=== PATIENT | female | born 1960 | race Two or more races ===

== ENCOUNTER → 2020-01-10 13:53 | Outpatient (BNVA) | payer OTHER, SELFPAY | PROVIDERS: PCP Internal Medicine; Visit Provider Hospitalist | DX: Z76.89 Persons encountering health services in other specified circumstances (principal) ==

== ENCOUNTER → 2020-04-13 13:50 | Outpatient (BNVA) | payer OTHER, SELFPAY | PROVIDERS: PCP Internal Medicine; Visit Provider Hospitalist | DX: Z76.89 Persons encountering health services in other specified circumstances (principal) ==

== ENCOUNTER 2020-06-01 10:00 | Outpatient (REF) | payer OTHER, SELFPAY ==
--- NOTE | ~2020-06-01 | CT_ITS ---
EXAMINATION: CT CHEST WITHOUT CONTRAST CLINICAL INFORMATION: Other nonspecific abnormal findings of lung field COMPARISON: Previous chest x-ray October 2019 TECHNIQUE: Multidetector volumetric CT imaging of the chest was done. Axial MIP volume rendering provided. Sagittal and coronal reformatted images were obtained. This CT examination was performed using dose optimization techniques as appropriate, variously including the following: *Automated exposure control *Adjustment of mA and/or kV according to patient size (this includes techniques or standardized protocols for targeted exams where dose is matched to indication/reason for exam; i.e. extremities or head) *Use of iterative reconstruction technique DLP: 139 mGy-cm FINDINGS: LUNGS: There is evidence of emphysema. There is a 4 x 10 mm right upper lobe nodule axial image 100 series 7. There is an adjacent 4 mm semisolid or groundglass attenuation nodule axial image 110 series 7. There is focal pleural thickening versus peripheral or subpleural lateral right upper lobe measuring 0.5 x 1.7 cm axial image 158 series 7. There is a new irregularly-shaped peripheral or subpleural 1.4 x 1.6 cm nodule in the medial superior segment of the right lower lobe axial image 220 series 7. There is a 4 mm left lower lobe nodule axial image 329 series 7. There is a 2.9 x 3.6 cm left lower lobe nodule axial image 3:30 series 7. There is a 5 mm peripheral or subpleural right lower lobe nodule along the lateral diaphragmatic pleural surface axial image 380 evident series 7. There is a 4 mm right lower lobe nodule axial image 4 3 series 7. There is a 4 mm peripheral or subpleural left lower lobe nodule in the posterior costophrenic sulcus axial image 447 series 7. There is curvilinear high attenuation seen along the medial left lower lobe and lateral margin of the descending thoracic aorta. Appearance appears atypical for vascular calcification. Appearance is questionable for possible postsurgical change with surgical staple line versus irregular pleural calcification or small calcified lymph nodes. MEDIASTINUM: There is mild coronary artery calcification. The heart does not appear enlarged. There is a small pericardial effusion. The thoracic aorta is normal in caliber. There are small mediastinal lymph nodes. No enlarged lymph nodes are seen. PLEURA: There is a slightly irregular pleural thickening along the posterior medial left lower lobe. There is no pleural effusion. AXILLA: No lymphadenopathy. UPPER ABDOMEN: There are small bilateral intrarenal calcifications. There is question of a cortical thickening or mass in the lateral mid left kidney. OSSEOUS STRUCTURES: There are mild degenerative changes of the spine. CT/CT chest wo con IMPRESSION: Emphysema. Bilateral pulmonary nodules, largest in the left lower lobe measuring 2.9 x 3.6 cm. Left pleural thickening. Infectious, inflammatory and neoplastic processes should be considered. Question postsurgical change to the left lower lobe. Mild coronary artery calcification. Question left renal cortical thickening versus mass.
== END 2020-06-01 10:01 | disposition home or self-care (01) ==
LOC: HO.CT 10:00
PROVIDERS: PCP Internal Medicine; Visit Provider Hospitalist
DX: R91.8 Other nonspecific abnormal finding of lung field (principal)
CPT/HCPCS: 71250

== ENCOUNTER → 2020-06-03 09:45 | Outpatient (BNVA) | payer OTHER, SELFPAY | PROVIDERS: PCP Internal Medicine; Visit Provider Hospitalist ==

== ENCOUNTER → 2020-07-17 14:11 | Outpatient (BNVA) | payer OTHER, SELFPAY | PROVIDERS: Visit Provider Hospitalist | DX: J44.9 Chronic obstructive pulmonary disease, unspecified (principal) ==

== ENCOUNTER → 2020-08-28 13:59 | Outpatient (BNVA) | payer OTHER, SELFPAY | PROVIDERS: PCP Internal Medicine; Visit Provider Hospitalist ==

== ENCOUNTER 2020-09-24 12:53 | Outpatient (REF) | payer OTHER, SELFPAY ==
[2020-09-24 14:29] LABS: MANUAL DIFF FLAG NO
[2020-09-24 14:32] LABS: Basophils Percent Auto 0.6 % (0-2); Eosinophils Absolute Auto 0.1 X10*3/uL (0.0-0.4); Eosinophils Percent Auto 1.3 % (0-4); Hematocrit 33.7 % (37-47); Hemoglobin 11.1 g/dl (12.0-16.0); Imm Gran Abs Auto 0.02 X10*3/uL (0.00-0.03); Imm Gran Pct Auto 0.3 % (0.0-0.4); Lymphocytes Absolute Auto 2.2 X10*3/uL (1.2-4.9); Lymphocytes Percent Auto 32.8 % (20-40); Mean Corpuscular HGB Conc 32.9 g/dl (31.0-35.0); Mean Corpuscular Hemoglobin 26.7 pg (27.0-33.0); Mean Platelet Volume 10.9 fL (9.4-12.3); Monocytes Absolute Auto 0.6 X10*3/uL (0.1-1.2); Monocytes Percent Auto 8.6 % (2-11); Neutrophils Absolute Auto 3.8 X10*3/uL (2.0-8.3); Neutrophils Percent Auto 56.4 % (45-73); Platelet Count 275 X10*3/uL (160-400); Red Blood Count 4.16 X10*6/uL (4.20-5.50); Red Cell Distribution Width 14.8 % (11.0-16.0); White Blood Count 6.7 X10*3/uL (4.8-10.8)
[2020-09-24 14:54] LABS: Alanine Aminotransferase 15 U/L (0-31); Albumin Level 4.1 g/dL (3.5-5.0); Alkaline Phosphatase 71 U/L (39-117); Anion Gap 15 (12-20); Aspartate Amino Transferase 15 U/L (5-31); Bilirubin Direct < 0.2 mg/dL (0.0-0.5); Bilirubin Total 0.4 mg/dL (0.0-1.0); Blood Urea Nitrogen 16 mg/dL (9-16); Calcium 9.6 mg/dL (8.4-10.2); Carbon Dioxide 27 mmol/L (22-29); Chloride 106 mmol/L (96-108); Estimated Glomerular Filt Rate > 60; Glucose Random 105 mg/dL (60-115); Sodium 144 mmol/L (135-145); Total Protein 6.8 g/dL (6.5-8.0)
[2020-09-24 15:16] LABS: Erythrocyte Sedimentation Rate 25 MM/HR (0-20)
--- NOTE | 2020-09-24 17:02 | PFT_ITS ---
INDICATION: Organizing pneumonia. SPIROMETRY: The FEV1 to FVC was 73% with an FEV1 of 2.20 L, which is 91% predicted with an FVC of 3 L, which is 98% predicted. No significant response to bronchodilators noted. Of note, the pre-bronchodilator FEV1 to FVC was 69% predicted suggesting a reversible obstruction. Maximum voluntary ventilation 111% predicted. LUNG VOLUMES: Total lung capacity 90% predicted with expiratory reserve volume of 137% predicted. DIFFUSION CAPACITY: DLCO 60% predicted. COMPARISONS: None available. INTERPRETATION: There appears to be a reversible obstructive ventilatory defect consistent with a diagnosis of asthma or hyperreactive airways. The patient has evidence of small airways disease which could be also appreciated with asthma. Normal maximum voluntary ventilation. In addition to that, lung volumes are within normal limits and the patient does have a mild diffusion impairment. Clinical correlation warranted. MD AQUILINO Pagan/MODElliott / [phone]
[2020-09-26 14:07] LABS: Anti DNA DS Antibody 4 IU/mL; Myeloperoxidase Antibody <1.0 AI; Proteinase 3 PR3 Antibodies <1.0 AI; Scleroderma 70 Antibody <1.0 NEG AI (<1.0 NEG)
[2020-09-28 14:42] LABS: Anti Nuclear Antibody Screen POSITIVE (NEGATIVE)
[2020-09-29 23:26] LABS: Angiotensin Converting Enzyme 27 U/L (9-67)
[2020-09-30 13:11] LABS: Asperg fumigatus Precip Abs NEGATIVE (NEGATIVE); Micropoly faeni Abs NEGATIVE (NEGATIVE); Pigeon serum Abs NEGATIVE (NEGATIVE); Saccharo pora viridis Abs NEGATIVE (NEGATIVE); Thermo candidus Abs NEGATIVE (NEGATIVE); Thermoa vulgaris #1 NEGATIVE (NEGATIVE)
== END 2020-09-24 12:54 | disposition home or self-care (01) ==
LOC: HO.RESP 12:53
PROVIDERS: PCP Internal Medicine; Visit Provider Hospitalist
DX: J67.9 Hypersensitivity pneumonitis due to unspecified organic dust (principal); J84.116 Cryptogenic organizing pneumonia; R91.8 Other nonspecific abnormal finding of lung field
CPT/HCPCS: 36415; 80048; 80076; 82164; 85025; 85652; 86021; 86038; 86039; 86225; 86235; 86331; 86606; 86609; 94060; 94727; 94729

== ENCOUNTER → 2020-10-02 13:29 | Outpatient (BNVA) | payer OTHER, SELFPAY | PROVIDERS: PCP Internal Medicine; Visit Provider Hospitalist | DX: R91.8 Other nonspecific abnormal finding of lung field (principal); J84.116 Cryptogenic organizing pneumonia ==

== ENCOUNTER → 2021-01-11 11:11 | Outpatient (BNVA) | payer OTHER, SELFPAY | PROVIDERS: PCP Internal Medicine; Visit Provider Hospitalist ==

== ENCOUNTER 2021-04-26 09:44 | Outpatient (REF) | payer OTHER, SELFPAY ==
--- NOTE | ~2021-04-26 | XR_ITS ---
EXAMINATION: XR CHEST CLINICAL INFORMATION: Nonspecific abnormal finding of lung field COMPARISON: Previous chest x-ray October [address] May 2020 TECHNIQUE: 2 views of the chest were obtained. FINDINGS: The cardiac and mediastinal contours are stable. There is volume loss to the left hemithorax with shift of the central mediastinal structures to the left. There is question of left lower lung nodule. This measures 1.3 x 3 cm on the PA view in between the left posterior ninth and 10th ribs and 1.9 cm in AP dimension projecting over the superior posterior T11 vertebral body. There is question of 2 small peripheral 5 mm right upper lobe nodule seen on the PA view in between the right first and second anterior ribs and overlying the right posterior fourth rib. There is no pleural effusion or pneumothorax. Bony structures are unremarkable. XR/XR chest 2V IMPRESSION: Volume loss to the left hemithorax. Question decrease in size and left lower lung nodule and stable appearance to the small peripheral right upper lobe nodules. Findings could be better evaluated by CT if clinically indicated.
== END 2021-04-26 09:45 | disposition home or self-care (01) ==
LOC: HO.XRAY 09:44
PROVIDERS: PCP Internal Medicine; Visit Provider Hospitalist
DX: R91.8 Other nonspecific abnormal finding of lung field (principal); J84.116 Cryptogenic organizing pneumonia; J84.9 Interstitial pulmonary disease, unspecified; G89.12 Acute post-thoracotomy pain; J45.40 Moderate persistent asthma, uncomplicated; Z23 Encounter for immunization
CPT/HCPCS: 71046; 90471; 90732

== ENCOUNTER → 2021-08-02 10:48 | Outpatient (BNVA) | payer OTHER, SELFPAY | PROVIDERS: PCP Internal Medicine; Visit Provider Hospitalist | DX: Z13.89 Encounter for screening for other disorder (principal) ==

== ENCOUNTER → 2021-09-14 14:51 | Outpatient (BNVA) | payer OTHER, SELFPAY | PROVIDERS: PCP Internal Medicine; Visit Provider Hospitalist | DX: J84.116 Cryptogenic organizing pneumonia (principal) ==

== ENCOUNTER 2021-11-19 10:22 | Outpatient (REF) | payer OTHER, SELFPAY | END 2021-11-19 10:23 | disposition home or self-care (01) | LOC: HO.XRAY 10:22 | PROVIDERS: Visit Provider Hospitalist | DX: Z13.89 Encounter for screening for other disorder (principal) ==

== ENCOUNTER 2022-01-24 09:42 | Outpatient (REF) | payer OTHER, SELFPAY ==
--- NOTE | ~2022-01-24 | XR_ITS ---
EXAMINATION: XR CHEST CLINICAL INFORMATION: Abnormal finding in lung field. COMPARISON: Multiple prior imaging examinations including chest x-ray April [address] May 2020. TECHNIQUE: 2 views of the chest were obtained. FINDINGS: There is volume loss of the left lung unchanged compared to prior likely postsurgical. There is linear opacity at the left base compatible with scarring or discoid atelectasis. There is also a concomitant question nodular opacity in the same area projecting over the vertebral body in the lateral projection, similar to prior. The previously reported nodular opacities in the right lung are not conspicuous. Cardiomediastinal silhouette otherwise normal. Bone and soft tissues unremarkable. XR/XR chest 2V IMPRESSION: Stable appearance of the left lower lobe with linear findings compatible with scarring and question of a nodular opacity unchanged. I suspect this may all reflect postsurgical change and more likely benign given its stability of findings. Consider follow-up imaging with CT as felt clinically necessary.
== END 2022-01-24 09:43 | disposition home or self-care (01) ==
LOC: HO.XRAY 09:42
PROVIDERS: Visit Provider Hospitalist
DX: R91.8 Other nonspecific abnormal finding of lung field (principal); J84.9 Interstitial pulmonary disease, unspecified
CPT/HCPCS: 71046

== ENCOUNTER → 2022-03-07 10:07 | Outpatient (BNVA) | payer OTHER, SELFPAY | PROVIDERS: PCP Internal Medicine; Visit Provider Hospitalist | DX: Z23 Encounter for immunization (principal); J67.9 Hypersensitivity pneumonitis due to unspecified organic dust; J84.116 Cryptogenic organizing pneumonia; J84.9 Interstitial pulmonary disease, unspecified; J45.40 Moderate persistent asthma, uncomplicated; R91.8 Other nonspecific abnormal finding of lung field | CPT/HCPCS: 90471; 90686 ==

== ENCOUNTER → 2022-05-13 09:55 | Outpatient (BNVA) | payer OTHER, SELFPAY | PROVIDERS: PCP Internal Medicine; Visit Provider Hospitalist | DX: J67.9 Hypersensitivity pneumonitis due to unspecified organic dust (principal) ==

== ENCOUNTER 2022-08-12 09:53 | Outpatient (REF) | payer OTHER, SELFPAY | END 2022-08-12 09:54 | disposition home or self-care (01) | LOC: HO.XRAY 09:53 | PROVIDERS: Visit Provider Hospitalist | DX: Z13.89 Encounter for screening for other disorder (principal) ==

== ENCOUNTER 2022-12-09 10:57 | Outpatient (AMB) | payer OTHER, SELFPAY ==
--- NOTE | 2022-12-09 10:59 | A.OFFVIS_ITS ---
Intake Vital Signs 12/09/22 11:00 Height 5 ft 4 in Weight 174 lb 2.643 oz BMI 29.9 BP 127/67 Blood Pressure Location Lt brachial Position Sitting Pulse 70 Pulse Source Doppler Pulse Oximetry (%) 100 Oxygen Delivery Method Room Air Intake Visit Reasons: pulm nodule Allergies glipizide Allergy (Severe, Verified 12/09/22 11:07) Rash/Hives metronidazole [From Flagyl] Allergy (Severe, Verified 12/09/22 11:07) Rash/Hives Penicillins Allergy (Severe, Verified 12/09/22 11:07) Rash/Hives sitagliptin [From Januvia] Allergy (Severe, Verified 12/09/22 11:07) Rash/Hives Sulfa (Sulfonamide Antibiotics) Allergy (Severe, Verified 12/09/22 11:07) Rash/Hives HPI HPI Comments History of Present Illness Details the patient is a 62-year-old woman with a known history of pulmonary nodules. Patient has undergone to surgical biopsies initially the superior segment of the left lower lobe segmentectomy and subsequently a left lower lobe lobectomy after a concerning nodule. both nodules demonstrated a pathology consistent with organizing pneumonia and non-necrotizing granulomas which is typical of hypersensitivity pneumonitis. the patient did undergo blood work ruling out connective tissue conditions an inflammatory conditions. Unfortunately, her hypersensitivity panel was not done as ordered. Patient has been complaining of chest discomfort. Her left sided pleural effusion did clear and her last chest x-ray. Still has chest pains which is likely due to neuropathy at the area on her surgery. Denies any radiations, [facility]. She has tried [id number]-gif-[id number] medications without any significant improvement. Will try Lidoderm patch to the area in the meantime. The patient is also using gabapentin. Initially she was scheduled to take it 3 times a day, but, then recommended that she takes it once a day. The patient then had a PET scan and also she made an appointment to be evaluated at [facility]. Recently she had an evaluation. Today reviewed the reports of the previous pathologies demonstrating the non-necrotizing granulomas in the organizing pneumonia. The patient will be getting the actual pathology to [place] in order for them to be able to visualize the slides and make the year own conclusion on the biopsy. The did bring up the question of non tuberculosis mycobacterial infections. In the meantime the patient did not tolerate the CellCept because of adverse effects. She did tolerate the prednisone that was given to her afterwards and that did relieve some of the discomfort. The patient did have the recent biopsy on the left mass. She was given Percocet for pain. The pain is significant. Unfortunately the Percocet is make her feel nauseous and she cannot tolerate them. She will talk to her primary care doctor on Monday regarding using oxycodone by itself that she seems to tolerate well. I will provide her with several tablets of the oxycodone to tie her over the weekend or for her to be able to function after the biopsy. The patient understands that i f the chest pain gets worse or if her breathing gets worse she needs to go back to the ER to be evaluated for pneumothorax or other issues. 08/28/2020 the patient is here for pulmonary follow-up visit. Since we last spoke she did undergo a CT-guided biopsy of the left lower lobe mass. Again demonstrating granulomas and organizing pneumonia. She was evaluated at the [facility] by thoracic surgery and diagnosis of IgG4 was consider but for without by for laboratory data. For current for current the patient has been on prednisone 10 mg p.o. twice a day. She for seems to be tolerating it even with her diabetes. We did talk about other alternative for medications including methotrexate in a ramp. The patient already tried and failed CellCept due to adverse side effects. For will request a repeat CT scan of the chest at this time. In the meantime the patient has been arranged to have a pulmonary evaluation at [facility] as well. The patient has been concerned about some abdominal discomfort that she has feels like that area swollen. Moderate in severity. Apparently she did have an ultrasound of the abdomen done at [place] and she could be. But, we do not have those results. Will request copies of the results. 10/02/2020 the patient is here for pulmonary follow-up visit. Overall she is doing better. She had been on the prednisone 10 mg twice a day and then decre ase to daily. Recently she did have a CT scan of the chest at [facility] which demonstrated interval decrease in the masslike densities. However, she does have a new 3 mm pulmonary nodule. She had a 2nd opinion at [facility] Pulmonary. She was given a diagnosis of sarcoid per report and she was taken off the prednisone based on the stability. Since she came off the prednisone she has been complaining of some increased discomfort. In addition to that she also has some small joint pains specially in her hands. We did review her blood work demonstrating a normal Jorge Luis level, normal hypersensitivity panel. But, her JULITA was elevated with a small titer 1:80. This brings up the possibility of having interstitial pneumonia with autoimmune features (IPAF) based on the fact that although she does have granuloma like inflammatory reaction her biopsy also demonstrate significant organizing pneumonia. she was ruled out for IgG4 disease. she will have a follow-up at [facility] decide what to do with the prednisone. My professional opinion is that she she had of taper down slowly. at this point I will hold on sending her any additional medication till she is evaluated in [place]. in the meantime the patient had pulmonary function studies which we personally reviewed demonstrating a reversible obstruction consistent with diagnosis of asthma. Although, FEV1 to FVC is still on the low side and she does have some emphysema on her CT scan suggesting the diagnosis of asthma COPD overlap syndrome. 01/11/2021 the patient is here for a pulmonary follow-up visit. Overall the patient has been complaining of left-sided pleuritic chest discomfort. She feels the inflammation is returning. Moderate severity. 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 She did have a repeat CT scan of the chest done at [facility] demonstrating new pulmonary nodules. In addition to that pericardial effusion. The patient did have a fretted string instrument repairer in the past but has not followed up. She did follow-up with pulmonology at [facility] in the recommended immunosuppressive therapy with immunomodulators. They recommended CellCept. However, she had a reaction potentially and in to CellCept in the past. She is agreeable to rechallenging with a smaller dose of CellCept to see if she can not tolerated. If she does them with them will use an alternative such as Imuran or methotrexate. In the meantime I will give her small dose of prednisone 10 mg daily that she can take until I see her in a few weeks. She will have blood work done does Monday prior to restarting the CellCept. 04/26/2021 the patient is here for pulmonary follow-up visit. Overall the patient has been doing relatively well from a respiratory status. She continues to have the left-sided pleuritic discomfort. During the last visit back in January she was supposed to start CellCept. However, she has not taking any medications. She has been dealing with significant back pain. She had a fall and likely has some this disease. She will be following up with physiatry may need cortisone injections. She is concerned about her diabetes. Right now she is off all steroid therapy. In view of the persistent left-sided pleuritic discomfort will have her undergo a chest x-ray. Will see if we can visualize the left lower lobe nodular density on x-ray and try to avoid a CT scan. I briefly looked at the casting machine operator automatic film of the CT scan and also looked at the x-ray that she has had demonstrating some slight interval decrease in the size of the nodular density. This is reassuring. At this point she will continue holding off on immunomodulator therapy. She will be followed up with [facility] as well. 08/02/2021 the patient is here for pulmonary follow-up visit. She has been having significant back discomfort feels like it is getting worse. She has felt this pain before usually when she has more lung parenchymal involvement. She does have a follow-up with [facility] along with a CT scan the end of August. However she is concerned because she is going on a trip to [place] with her for vacation. However, her pain is significant. She recently had a chest x-ray done at [place] demonstrating the left-sided parenchymal changes. The patient does need to get a CAT scan although she already is scheduled for [address] [place] [address]. Based on her upcoming trip be reasonable just to treat your with cortical steroid therapy to provide her with some relief and hopefully some shrinking of this mass like inflammatory density. The patient is already again has multiple biopsies suggesting a component of organizing pneumonia as well as granulomatous inflammation. her microbiology has been negative for any fungal or mycobacterial disease. If the patient response to the low-dose prednisone she can consider staying on a small dose versus starting on immunomodulator therapy. She will further discuss the management with her stationary engineer refrigeration from [place]. Also to note she has been dealing with a dental infection. She has been on multiple courses of antibiotics including doxycycline which resulted in an allergic reaction, clindamycin and more recently azithromycin. She does have allergies to penicillin. She does complaint of productive cough with green sputum. The antibiotics have not helped her symptoms. Ideally which should have a sputum culture. However, will try her on quinolone therapy and if she is not better then will consider is getting culture at that point. 09/14/2021 the patient is here for a pulmonary follow-up visit. Apparently she has been having worsening left-sided chest discomfort. Close to the area her surgical site. The patient was evaluated by thoracic surgery at [facility]. She did have a repeat CT scan of the chest demonstrating interval worsening of the masslike density that she has in the left lower lobe. It appears to be tethering on the pleura which could result in her pleuritic discomfort. She also has a lot of post thoracotomy syndrome discomfort. She looks very uncomfortable at this time. She has been on 10 mg of prednisone. But, does not appear to be sufficient enough to decrease the progressive nature of this inflammatory process. Did is granulomatous process is likely nodular sarcoid versus a hypersensitivity type of reaction. Still, she does need to be on immunosuppressive therapy. I do believe that restarting the CellCept would be a better option. She did have a questionable reaction in the past. Will go ahead and start slower at 500 mg daily to see how she tolerates that 1st. If for some reason she does not tolerate the mycophenolate will switch her to a different immunomodulator. Patient also will double up on her prednisone to try to relieve some of the discomfort and inflammation. She does have diabetes therefore will try to minimize the prednisone. As far as pain control she has use oxycodone in the past. At this point I think is reasonable for her to receive some pain control since she appears to be so uncomfortable. The patient will undergo blood work in a couple weeks after starting the mycophenolate in order to make sure that she is tolerating the medicine. Will also do additional blood work including repeating her JULITA since it was elevated in the past. 10/08/2021 The patient is here for a pulmonary follow up visit. She is tolerating the cellcept 500mg daily. She is still taking a small dose of p rednisone 10mg. She is still having pleuritic chest pain. Recent CT chest done at [facility] demonstrated that her mass like density is getting worse. The plan is to increase her Cellcept slowly to make sure she does not have any adversed effects. 11/19/2021 the patient is here for pulmonary follow-up visit. The patient recently recovered from COVID. She did receive monoclonal antibodies. After sh e did develop a lower respiratory bacterial infection and was started on doxycycline then switched over to Augmentin after developing adverse effects. She completed the course and she did feel better and currently she is doing better. Currently she is taking mycophenolate 500 mg twice a day. We did talk about increasing the dose to 1000 mg in the morning and 500 mg at nighttime. When she can tolerate that does will repeat her blood work and chest x-ray to make sure that she is tolerating the medicine. Her chest discomfort seems to be better at this time. She also continues on the prednisone. Will work on tapering down the prednisone as she increases the mycophenolate. 01/24/2022 the patient is here for sick visit. Apparently she had been tolerating the mycophenolate at a 1000 mg a day when she started noticing some blotching of her skin like some bruising. She was not sure if it was from the mycophenolate so therefore she decided to stop it. Now that she has been off it she started developing again the left-sided pleuritic discomfort. Moderate severity. The rash or the bruising subsequently has subsided. Therefore because of the discomfort she restarted 1 tablet of the mycophenolate but I believe that was just today. She did come in and she had an x-ray demonstrating no significant changes. The patient understands that she has an inflammatory allergy me condition and therefore needs to continue taking some component of anti-inflammatory medicine in order to stabilize her disease. She understands she has a progressive disease otherwise therefore, she will go ahead and restart the mycophenolate and she will have blood work including a platelet count and PT INR to make sure that her blood clotting is within normal limits while on the medicine. If for some reason she develops bruising again while on mycophenolate and start to being adverse effects to the medication then we did talk about considering an alternative agent such as methotrexate. The patient also may be able to take a small dose of prednisone in case she is not able to increase her immunomodulator to a reasonable dose. 03/07/2022 the patient is here for a pulmonary follow-up visit. The patient overall is feeling better. Her left-sided pleuritic discomfort has subsided. She is tolerating the 10 mg of prednisone which she has been tapering down and also has been tolerating the CellCept 500 mg daily only. She had been taking it twice a day she did have some increased GI symptoms. She seems to be tolerating well the lower dose. The patient did have a CT scan of the chest done at [facility] demonstrating interval decrease on the size of the masslike density from 2.4 cm to not 1.2 cm. This is overall reassuring. The patient understands that she needs to stay on some degree of immune modulation. The patient also had evidence of osteopenia on the CT scan. We did talk about the problem of using prednisone and we can in the bones. Therefore we will try to wean off the pr ednisone completely but the patient also needs to try to increase the CellCept to twice a day. She did 1 full tablet in the morning and half a tablet at nighttime if the patient continues to be symptomatic while off the prednisone then she may have to increase it to 1 tablet are 500 mg twice a day. Will continue to monitor her progress on the medication. When she returns in a couple months will plan to repeat blood work. 05/13/2022 the patient is here for a pulmonary follow-up visit. Overall the patient is doing fair. Her left-sided pleuritic discomfort seems to still be subsiding. Although it is not completely gone. The patient was able to wean off completely from the prednisone. However, she did not increase the CellCept. The patient understands that we need to continue with immunomodulator therapy I had a good enough dose to continue drinking this masslike density. Her last CT scan of the chest which we personally reviewed demonstrated interval trach in from 2.4-1.2 cm. However we need to continue to maintain her on therapy now that she is off the prednisone she needs additional immunomodulator therapy. The patient understands and she will do so. When she does increase the medication plan to follow-up with an x-ray. Her last CT scan of the chest I believe was not the fall of 2021. Therefore will plan to repeat the CT scan sometime around that time. 08/12/2022 the patient is here for pulmonary has follow-up visit. The patient overall feels a lot better. She is tolerating the CellCept at a lower dose. She is to be affecting beneficial. He is also seeing pain specialist and is currently on a pain patch that is also helping control the pain. The patient was supposed to have a chest x-ray but was not able to do it because she did not have enough time. Clinically the patient doing well I did give her an x-ray sleeping she is going to have it done closer to home. In regards to the medication she is going to continue with current dose. We do need to check her CBC and also LFTs and chemistries to make sure that she is tolerating the medicine. In addition to that will plan to do another x-ray when she comes back in the fall. 12/09/2022 the patient is here for a pulmonary follow-up visit. The patient is having significant issues with dizziness. She has been following closely with the pain management Clinic. She was started on a new opiate and she is having significant dizziness. In the office she has been very dizzy having to hold her 's arm. We did the orthostatic blood pressures come up but, the patient was not orthostatic actually blood pressure is little on the high side. She does take blood pressure medications. She will talk to the pain management Clinic regarding her symptoms as this is likely an adverse effect from the medication. The patient also has been taking the CellCept. Seems to be tolerating it well. Will go ahead and request a CT scan of the chest to address her inflammatory interstitial lung disease. If the area looks the same or worse will have to increase the CellCept. will have to wait for those results. In the meantime the patient has continued to have significant weight loss. [facility] Medical History (Updated 12/09/22 @ 11:43 by Natanael Woods MD) Abnormal PET of left lung Asthma Cryptogenic organizing pneumonia Hypersensitivity pneumonitis Interstitial pneumonia with autoimmune features Pericardial effusion Post-thoracotomy pain syndrome Pulmonary nodules Social History Patient Tobacco Use Status: Never used Tobacco Review of Systems Const Denies night sweats ENT Denies change in voice, Reports dizziness, Denies lip swelling, Denies mouth pain, Reports nasal congestion, Reports nasal discharge and Denies tongue swelling Card Denies chest pain and Denies dyspnea on exertion Resp Denies change in phlegm color, Denies chest congestion, Reports cough, Denies hemoptysis, Denies excessive phlegm production, Denies pain on inspiration and Denies dyspnea on exertion GI Denies abdominal pain Musc Reports myalgias Neuro Denies Neuro-related abnormal movements and Reports dizziness Psych Denies no additional complaints Brandon/Lymph Denies easy bleeding and Denies lymphadenopathy Aller/Immun Denies lip swelling and Denies tongue swelling Physical Exam Vital Signs: Last Vital Signs Pulse 70 12/09/22 11:00 BP 127/67 12/09/22 11:00 Pulse Ox 100 12/09/22 11:00 Oxygen Delivery Method Room Air 12/09/22 11:00 BMI result Body Mass Index 29.9 Const General: alert Neck Neck: Yes normal visual inspection, Yes full ROM and Yes no lymphadenopathy Chest Chest palpation & inspection: tenderness rib Resp Auscultation: diminished lung sounds Cardio Rate: regular rate Rhythm: regular rhythm Heart sounds: S1 normal heart sound present and S2 normal heart sound present GI Palpation (GI): Soft to palpation and nontender Auscultation: normal bowel sounds Skin General skin exam: rashes and/or lesions noted Assessment & Plan Assessment & Plan (1) Cryptogenic organizing pneumonia: Comment: AFOP Code(s): J84.116 - Cryptogenic organizing pneumonia (2) Interstitial pneumonia with autoimmune features: Comment: versus sarcoid Code(s): J84.9 - Interstitial pulmonary disease, unspecified (3) Post-thoracotomy pain syndrome: Code(s): G89.12 - Acute post-thoracotomy pain (4) Pulmonary nodules: Code(s): R91.8 - Other nonspecific abnormal finding of lung field (5) Asthma: Comment: asthma COPD overlap syndrome Code(s): J45.909 - Unspecified asthma, uncomplicated Qualifiers: Asthma complication type: uncomplicated Asthma persistence: persistent Asthma severity: moderate Qualified Code(s): J45.40 - Moderate persistent asthma, uncomplicated (6) Hypersensitivity pneumonitis: Comment: based on biopsies with organizing pneumonia and granulomas due to HSP. R/O connective tissue disease, with labs and exam. Not consistent with sarcoid, although nodular sarcoid is in the differential. Code(s): J67.9 - Hypersensitivity pneumonitis due to unspecified organic dust Plan Contiue JAMEL as needed contiue Flovent HFA/Anoro continue Cellcept 500mg BID CT chest Needs to be evaluated for the dizziness. ?related to new medication Bloodwork F/U 12 weeks Orders: Orders CT chest wo IV con 12/09/22 J84.9 - Interstitial pulmonary disease, unspecified, R91.8 - Other nonspecific abnormal finding of lung field Angiotensin Converting Enzyme 12/09/22 J45.909 - Unspecified asthma, uncomplicated, J84.9 - Interstitial pulmonary disease, unspecified Basic Metabolic Panel 12/09/22 J45.909 - Unspecified asthma, uncomplicated, J84.9 - Interstitial pulmonary disease, unspecified Liver Panel 12/09/22 J45.909 - Unspecified asthma, uncomplicated, J84.9 - Interstitial pulmonary disease, unspecified Complete Blood Count Auto Diff 12/09/22 J45.909 - Unspecified asthma, uncomplicated, J84.9 - Interstitial pulmonary disease, unspecified Erythrocyte Sedimentation Rate 12/09/22 J45.909 - Unspecified asthma, uncomplicated, J84.9 - Interstitial pulmonary disease, unspecified T Spot TB 12/09/22 J45.909 - Unspecified asthma, uncomplicated, J84.9 - In terstitial pulmonary disease, unspecified Coding Level of Care Code Est Pt Level 5 (25942) Diagnoses Cryptogenic organizing pneumonia J84.116 Interstitial pneumonia with autoimmune features J84.9 Post-thoracotomy pain syndrome G89.12 Pulmonary nodules R91.8 Asthma J45.40 Asthma complication type: uncomplicated Asthma persistence: persistent Asthma severity: moderate Hypersensitivity pneumonitis J67.9 Time Spent (min) 40
[2022-12-09 11:00] VITALS: BP 127/67; PULSE 70; O2SAT 100; BMI 29.9
== END 2022-12-09 11:54 | disposition home or self-care (01) ==
PROVIDERS: PCP Internal Medicine; Visit Provider Hospitalist
DX: J84.116 Cryptogenic organizing pneumonia (principal); J84.9 Interstitial pulmonary disease, unspecified; G89.12 Acute post-thoracotomy pain; R91.8 Other nonspecific abnormal finding of lung field; J45.40 Moderate persistent asthma, uncomplicated; J67.9 Hypersensitivity pneumonitis due to unspecified organic dust
CPT/HCPCS: 99215

== ENCOUNTER → 2022-12-09 10:57 | Outpatient (BNVA) | payer OTHER, SELFPAY | PROVIDERS: PCP Internal Medicine; Visit Provider Hospitalist | DX: J67.9 Hypersensitivity pneumonitis due to unspecified organic dust (principal); J45.909 Unspecified asthma, uncomplicated; R91.8 Other nonspecific abnormal finding of lung field ==

== ENCOUNTER 2023-03-09 09:58 | Outpatient (AMB) | payer OTHER, SELFPAY ==
--- NOTE | 2023-03-09 10:11 | MHC.OFFVIS ---
Intake Vital Signs 03/09/23 10:19 Height 5 ft 4 in Weight 171 lb BMI 29.3 BP 110/70 Blood Pressure Location Lt brachial Pulse 61 Pulse Oximetry (%) 100 Intake Visit Reasons: ED Hospital/Pulmonary Nodules Allergies glipizide Allergy (Severe, Verified 03/09/23 10:23) Rash/Hives metronidazole [From Flagyl] Allergy (Severe, Verified 03/09/23 10:23) Rash/Hives Penicillins Allergy (Severe, Verified 03/09/23 10:23) Rash/Hives sitagliptin [From Januvia] Allergy (Severe, Verified 03/09/23 10:23) Rash/Hives Sulfa (Sulfonamide Antibiotics) Allergy (Severe, Verified 03/09/23 10:23) Rash/Hives HPI HPI Comments History of Present Illness Details The patient is a 62-year-old woman with a known history of pulmonary nodules. Patient has undergone to surgical biopsies initially the superior segment of the left lower lobe segmentectomy and subsequently a left lower lobe lobectomy after a concerning nodule. both nodules demonstrated a pathology consistent with organizing pneumonia and non-necrotizing granulomas which is typical of hypersensitivity pneumonitis. the patient did undergo blood work ruling out connective tissue conditions an inflammatory conditions. Unfortunately, her hypersensitivity panel was not done as ordered. Patient has been complaining of chest discomfort. Her left sided pleural effusion did clear and her last chest x-ray. Still has chest pains which is likely due to neuropathy at the area on her surgery. Denies any radiations, 08/17 in [facility]. She has tried [id number]-[id number] medications without any significant improvement. Will try Lidoderm patch to the area in the meantime. The patient is also using gabapentin. Initially she was scheduled to take it 3 times a day, but, then recommended that she takes it once a day. The patient then had a PET scan and also she made an appointment to be evaluated at [facility]. Recently she had an evaluation. Today reviewed the reports of the previous pathologies demonstrating the non-necrotizing granulomas in the organizing pneumonia. The patient will be getting the actual pathology to [place] in order for them to be able to visualize the slides and make the year own conclusion on the biopsy. The did bring up the question of non tuberculosis mycobacterial infections. In the meantime the patient did not tolerate the CellCept because of adverse effects. She did tolerate the prednisone that was given to her afterwards and that did relieve some of the discomfort. The patient did have the recent biopsy on the left mass. She was given Percocet for pain. The pain is significant. Unfortunately the Percocet is make her feel nauseous and she cannot tolerate them. She will talk to her primary care doctor on Monday regarding using oxycodone by itself that she seems to tolerate well. I will provide her with several tablets of the oxycodone to tie her over the weekend or for her to be able to function after the biopsy. The patient understands that if the chest pain gets worse or if her breathing gets worse she needs to go back to the ER to be evaluated for pneumothorax or other issues. 08/28/2020 the patient is here for pulmonary follow-up visit. Since we last spoke she did undergo a CT-guided biopsy of the left lower lobe mass. Again demonstrating granulomas and organizing pneumonia. She was evaluated at the [facility] by thoracic surgery and diagnosis of IgG4 was consider but for without by for laboratory data. For current for current the patient has been on prednisone 10 mg p.o. twice a day. She for seems to be tolerating it even with her diabetes. We did talk about other alternative for medications including methotrexate in a ramp. The patient already tried and failed CellCept due to adverse side effects. For will request a repeat CT scan of the chest at this time. In the meantime the patient has been arranged to have a pulmonary evaluation at [facility] as well. The patient has been concerned about some abdominal discomfort that she has feels like that area swollen. Moderate in severity. Apparently she did have an ultrasound of the abdomen done at [place] and she could be. But, we do not have those results. Will request copies of the results. 10/02/2020 the patient is here for pulmonary follow-up visit. Overall she is doing better. She had been on the prednisone 10 mg twice a day and then decrease to daily. Recently she did have a CT scan of the chest at [facility] which demonstrated interval decrease in the masslike densities. However, she does have a new 3 mm pulmonary nodule. She had a 2nd opinion at [facility]. She was given a diagnosis of sarcoid per report and she was taken off the prednisone based on the stability. Since she came off the prednisone she has been complaining of some increased discomfort. In addition to that she also has some small joint pains specially in her hands. We did review her blood work demonstrating a normal Jorge Luis level, normal hypersensitivity panel. But, her JULITA was elevated with a small titer 1:80. This brings up the possibility of having interstitial pneumonia with autoimmune features (IPAF) based on the fact that although she does have granuloma like inflammatory reaction her biopsy also demonstrate significant organizing pneumonia. she was ruled out for IgG4 disease. she will have a follow-up at [facility] decide what to do with the prednisone. My professional opinion is that she she had of taper down slowly. at this point I will hold on sending her any additional medication till she is evaluated in [place]. in the meantime the patient had pulmonary function studies which we personally reviewed demonstrating a reversible obstruction consistent with diagnosis of asthma. Although, FEV1 to FVC is still on the low side and she does have some emphysema on her CT scan suggesting the diagnosis of asthma COPD overlap syndrome. 01/11/2021 the patient is here for a pulmonary follow-up visit. Overall the patient has been complaining of left-sided pleuritic chest discomfort. She feels the inflammation is returning. Moderate severity. 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 She did have a repeat CT scan of the chest done at [facility] demonstrating new pulmonary nodules. In addition to that pericardial effusion. The patient did have a plaster helper in the past but has not followed up. She did follow-up with pulmonology at [facility] in the recommended immunosuppressive therapy with immunomodulators. They recommended CellCept. However, she had a reaction potentially and in to CellCept in the past. She is agreeable to rechallenging with a smaller dose of CellCept to see if she can not tolerated. If she does them with them will use an alternative such as Imuran or methotrexate. In the meantime I will give her small dose of prednisone 10 mg daily that she can take until I see her in a few weeks. She will have blood work done does Monday prior to restarting the CellCept. 04/26/2021 the patient is here for pulmonary follow-up visit. Overall the patient has been doing relatively well from a respiratory status. She continues to have the left-sided pleuritic discomfort. During the last visit back in January she was supposed to start CellCept. However, she has not taking any medications. She has been dealing with significant back pain. She had a fall and likely has some this disease. She will be following up with physiatry may need cortisone injections. She is concerned about her diabetes. Right now she is off all steroid therapy. In view of the persistent left-sided pleuritic discomfort will have her undergo a chest x-ray. Will see if we can visualize the left lower lobe nodular density on x-ray and try to avoid a CT scan. I briefly looked at the transportation maintenance supervisor film of the CT scan and also looked at the x-ray that she has had demonstrating some slight interval decrease in the size of the nodular density. This is reassuring. At this point she will continue holding off on immunomodulator therapy. She will be followed up with [facility] as well. 08/02/2021 the patient is here for pulmonary follow-up visit. She has been having significant back discomfort feels like it is getting worse. She has felt this pain before usually when she has more lung parenchymal involvement. She does have a follow-up with [facility] along with a CT scan the end of August. However she is concerned because she is going on a trip to [place] with her for vacation. However, her pain is significant. She recently had a chest x-ray done at [place] demonstrating the left-sided parenchymal changes. The patient does need to get a CAT scan although she already is scheduled for [address] [place] [address]. Based on her upcoming trip be reasonable just to treat your with cortical steroid therapy to provide her with some relief and hopefully some shrinking of this mass like inflammatory density. The patient is already again has multiple biopsies suggesting a component of organizing pneumonia as well as granulomatous inflammation. her microbiology has been negative for any fungal or mycobacterial disease. If the patient response to the low-dose prednisone she can consider staying on a small dose versus starting on immunomodulator therapy. She will further discuss the management with her housing quality standard inspector from [place]. Also to note she has been dealing with a dental infection. She has been on multiple courses of antibiotics including doxycycline which resulted in an allergic reaction, clindamycin and more recently azithromycin. She does have allergies to penicillin. She does complaint of productive cough with green sputum. The antibiotics have not helped her symptoms. Ideally which should have a sputum culture. However, will try her on quinolone therapy and if she is not better then will consider is getting culture at that point. 09/14/2021 the patient is here for a pulmonary follow-up visit. Apparently she has been having worsening left-sided chest discomfort. Close to the area her surgical site. The patient was evaluated by thoracic surgery at [facility]. She did have a repeat CT scan of the chest demonstrating interval worsening of the masslike density that she has in the left lower lobe. It appears to be tethering on the pleura which could result in her pleuritic discomfort. She also has a lot of post thoracotomy syndrome discomfort. She looks very uncomfortable at this time. She has been on 10 mg of prednisone. But, does not appear to be sufficient enough to decrease the progressive nature of this inflammatory process. Did is granulomatous process is likely nodular sarcoid versus a hypersensitivity type of reaction. Still, she does need to be on immunosuppressive therapy. I do believe that restarting the CellCept would be a better option. She did have a questionable reaction in the past. Will go ahead and start slower at 500 mg daily to see how she tolerates that 1st. If for some reason she does not tolerate the mycophenolate will switch her to a different immunomodulator. Patient also will double up on her prednisone to try to relieve some of the discomfort and inflammation. She does have diabetes therefore will try to minimize the prednisone. As far as pain control she has use oxycodone in the past. At this point I think is reasonable for her to receive some pain control since she appears to be so uncomfortable. The patient will undergo blood work in a couple weeks after starting the mycophenolate in order to make sure that she is tolerating the medicine. Will also do additional blood work including repeating her JULITA since it was elevated in the past. 10/08/2021 The patient is here for a pulmonary follow up visit. She is tolerating the cellcept 500mg daily. She is still taking a small dose of prednisone 10mg. She is still having pleuritic chest pain. Recent CT chest done at [facility] demonstrated that her mass like density is getting worse. The plan is to increase her Cellcept slowly to make sure she does not have any adversed effects. 11/19/2021 the patient is here for pulmonary follow-up visit. The patient recently recovered from COVID. She did receive monoclonal antibodies. After she did develop a lower respiratory bacterial infection and was started on doxycycline then switched over to Augmentin after developing adverse effects. She completed the course and she did feel better and currently she is doing better. Currently she is taking mycophenolate 500 mg twice a day. We did talk about increasing the dose to 1000 mg in the morning and 500 mg at nighttime. When she can tolerate that does will repeat her blood work and chest x-ray to make sure that she is tolerating the medicine. Her chest discomfort seems to be better at this time. She also continues on the prednisone. Will work on tapering down the prednisone as she increases the mycophenolate. 01/24/2022 the patient is here for sick visit. Apparently she had been tolerating the mycophenolate at a 1000 mg a day when she started noticing some blotching of her skin like some bruising. She was not sure if it was from the mycophenolate so therefore she decided to stop it. Now that she has been off it she started developing again the left-sided pleuritic discomfort. Moderate severity. The rash or the bruising subsequently has subsided. Therefore because of the discomfort she restarted 1 tablet of the mycophenolate but I believe that was just today. She did come in and she had an x-ray demonstrating no significant changes. The patient understands that she has an inflammatory allergy me condition and therefore needs to continue taking some component of anti-inflammatory medicine in order to stabilize her disease. She understands she has a progressive disease otherwise therefore, she will go ahead and restart the mycophenolate and she will have blood work including a platelet count and PT INR to make sure that her blood clotting is within normal limits while on the medicine. If for some reason she develops bruising again while on mycophenolate and start to being adverse effects to the medication then we did talk about considering an alternative agent such as methotrexate. The patient also may be able to take a small dose of prednisone in case she is not able to increase her immunomodulator to a reasonable dose. 03/07/2022 the patient is here for a pulmonary follow-up visit. The patient overall is feeling better. Her left-sided pleuritic discomfort has subsided. She is tolerating the 10 mg of prednisone which she has been tapering down and also has been tolerating the CellCept 500 mg daily only. She had been taking it twice a day she did have some increased GI symptoms. She seems to be tolerating well the lower dose. The patient did have a CT scan of the chest done at [facility] demonstrating interval decrease on the size of the masslike density from 2.4 cm to not 1.2 cm. This is overall reassuring. The patient understands that she needs to stay on some degree of immune modulation. The patient also had evidence of osteopenia on the CT scan. We did talk about the problem of using prednisone and we can in the bones. Therefore we will try to wean off the prednisone completely but the patient also needs to try to increase the CellCept to twice a day. She did 1 full tablet in the morning and half a tablet at nighttime if the patient continues to be symptomatic while off the prednisone then she may have to increase it to 1 tablet are 500 mg twice a day. Will continue to monitor her progress on the medication. When she returns in a couple months will plan to repeat blood work. 05/13/2022 the patient is here for a pulmonary follow-up visit. Overall the patient is doing fair. Her left-sided pleuritic discomfort seems to still be subsiding. Although it is not completely gone. The patient was able to wean off completely from the prednisone. However, she did not increase the CellCept. The patient understands that we need to continue with immunomodulator therapy I had a good enough dose to continue drinking this masslike density. Her last CT scan of the chest which we personally reviewed demonstrated interval trach in from 2.4-1.2 cm. However we need to continue to maintain her on therapy now that she is off the prednisone she needs additional immunomodulator therapy. The patient understands and she will do so. When she does increase the medication plan to follow-up with an x-ray. Her last CT scan of the chest I believe was not the fall of 2021. Therefore will plan to repeat the CT scan sometime around that time. 08/12/2022 the patient is here for pulmonary has follow-up visit. The patient overall feels a lot better. She is tolerating the CellCept at a lower dose. She is to be affecting beneficial. He is also seeing pain specialist and is currently on a pain patch that is also helping control the pain. The patient was supposed to have a chest x-ray but was not able to do it because she did not have enough time. Clinically the patient doing well I did give her an x-ray sleeping she is going to have it done closer to home. In regards to the medication she is going to continue with current dose. We do need to check her CBC and also LFTs and chemistries to make sure that she is tolerating the medicine. In addition to that will plan to do another x-ray when she comes back in the fall. 12/09/2022 the patient is here for a pulmonary follow-up visit. The patient is having significant issues with dizziness. She has been following closely with the pain management Clinic. She was started on a new opiate and she is having significant dizziness. In the office she has been very dizzy having to hold her 's arm. We did the orthostatic blood pressures come up but, the patient was not orthostatic actually blood pressure is little on the high side. She does take blood pressure medications. She will talk to the pain management Clinic regarding her symptoms as this is likely an adverse effect from the medication. The patient also has been taking the CellCept. Seems to be tolerating it well. Will go ahead and request a CT scan of the chest to address her inflammatory interstitial lung disease. If the area looks the same or worse will have to increase the CellCept. will have to wait for those results. In the meantime the patient has continued to have significant weight loss. 03/09/2023 the patient is here for a hospital follow-up visit. She was recently hospitalized at [facility] back in January of this year. She did have an elevated brain nitrate peptide. She had cardiac enzymes which were negative. She did undergo a stress test that demonstrated a fix defects suggesting an old myocardial infarction. She does have follow-up with cardiology soon to further discuss the findings and further evaluation. In the meantime she also had a CTA ruling out pulmonary emboli she did have the findings of her masslike density in the left lower lobe and also smaller nodular density in the right hemithorax. Compared to previous findings the area does not look as concerning. She has been on the CellCept lower dose of 500 twice a day. Will go ahead and increase that dose to treat her for her interstitial lung disease which in this case is a combination of cryptogenic organizing pneumonia versus a hypersensitivity type of reaction. [facility] Medical History (Updated 03/09/23 @ 19:19 by Natanael Woods MD) Lung mass Pericardial effusion Asthma Interstitial pneumonia with autoimmune features Abnormal PET of left lung Cryptogenic organizing pneumonia Hypersensitivity pneumonitis Post-thoracotomy pain syndrome Pulmonary nodules Social History Patient Tobacco Use Status: Never used Tobacco Review of Systems Const Denies night sweats ENT Denies change in voice, Reports dizziness, Denies lip swelling, Denies mouth pain, Reports nasal congestion, Reports nasal discharge and Denies tongue swelling Card Reports chest pain and Denies dyspnea on exertion Resp Denies change in phlegm color, Denies chest congestion, Reports cough, Denies hemoptysis, Denies excessive phlegm production, Reports pain on inspiration, Reports pain with cough and Denies dyspnea on exertion GI Denies abdominal pain Musc Reports myalgias Neuro Denies Neuro-related abnormal movements and Reports dizziness Psych Denies no additional complaints Brandon/Lymph Denies easy bleeding and Denies lymphadenopathy Aller/Immun Denies lip swelling and Denies tongue swelling Physical Exam Vital Signs: Last Vital Signs Pulse 61 03/09/23 10:19 BP 110/70 03/09/23 10:19 Pulse Ox 100 03/09/23 10:19 BMI result Body Mass Index 29.3 Const General: alert Neck Neck: Yes normal visual inspection, Yes full ROM and Yes no lymphadenopathy Chest Chest palpation & inspection: tenderness rib Resp Effort & Inspection: normal respiratory effort Auscultation: diminished lung sounds Cardio Rate: regular rate Rhythm: regular rhythm Heart sounds: S1 normal heart sound present and S2 normal heart sound present GI Palpation (GI): Soft to palpation and nontender Auscultation: normal bowel sounds Skin General skin exam: rashes and/or lesions noted Results Reviewed Results Reviewed: Assessment & Plan Assessment & Plan (1) Interstitial pneumonia with autoimmune features: Comment: versus sarcoid Code(s): J84.9 - Interstitial pulmonary disease, unspecified (2) Cryptogenic organizing pneumonia: Comment: AFOP Code(s): J84.116 - Cryptogenic organizing pneumonia (3) Post-thoracotomy pain syndrome: Code(s): G89.12 - Acute post-thoracotomy pain (4) Pulmonary nodules: Code(s): R91.8 - Other nonspecific abnormal finding of lung field (5) Asthma: Comment: asthma COPD overlap syndrome Code(s): J45.909 - Unspecified asthma, uncomplicated Qualifiers: Asthma severity: moderate Asthma persistence: persistent Asthma complication type: uncomplicated Qualified Code(s): J45.40 - Moderate persistent asthma, uncomplicated (6) Hypersensitivity pneumonitis: Comment: based on biopsies with organizing pneumonia and granulomas due to HSP. R/O connective tissue disease, with labs and exam. Not consistent with sarcoid, although nodular sarcoid is in the differential. Code(s): J67.9 - Hypersensitivity pneumonitis due to unspecified organic dust Plan Cardiology eval pending re: abnormal cardiac stress test Contiue JAMEL as needed contiue Flovent HFA/Anoro Increase Cellcept 500mg BID to 1000mg BID Bloodwork in 4-[address] chest in 3 months, pt prefers [facility] pain management F/U 12 weeks Orders: Orders Liver Panel Today J84.9 - Interstitial pulmonary disease, unspecified JULITA Reflex Titer and Pattern Today J84.9 - Interstitial pulmonary disease, unspecified Complete Blood Count Auto Diff Today J84.9 - Interstitial pulmonary disease, unspecified Basic Metabolic Panel Today J84.9 - Interstitial pulmonary disease, unspecified Erythrocyte Sedimentation Rate Today J84.9 - Interstitial pulmonary disease, unspecified Immunoglobulins,IgG IgA IgM Today J84.9 - Interstitial pulmonary disease, unspecified CT chest wo IV con 3 Months R91.8 - Other nonspecific abnormal finding of lung field Coding Level of Care Code Est Pt Level 5 (41251) Diagnoses Interstitial pneumonia with autoimmune features J84.9 Cryptogenic organizing pneumonia J84.116 Post-thoracotomy pain syndrome G89.12 Pulmonary nodules R91.8 Moderate persistent asthma without complication J45.40 Asthma severity: moderate Asthma persistence: persistent Asthma complication type: uncomplicated Hypersensitivity pneumonitis J67.9 Time Spent (min) 40
[2023-03-09 10:19] VITALS: BP 110/70; PULSE 61; O2SAT 100; BMI 29.3
== END 2023-03-09 10:47 | disposition home or self-care (01) ==
PROVIDERS: PCP Internal Medicine; Visit Provider Hospitalist
DX: R91.8 Other nonspecific abnormal finding of lung field (principal); J84.9 Interstitial pulmonary disease, unspecified; J84.116 Cryptogenic organizing pneumonia; J67.9 Hypersensitivity pneumonitis due to unspecified organic dust; G89.12 Acute post-thoracotomy pain; J45.40 Moderate persistent asthma, uncomplicated
CPT/HCPCS: 99215

== ENCOUNTER → 2023-03-09 09:58 | Outpatient (BNVA) | payer OTHER, SELFPAY | PROVIDERS: PCP Internal Medicine; Visit Provider Hospitalist | DX: R91.8 Other nonspecific abnormal finding of lung field (principal); J45.40 Moderate persistent asthma, uncomplicated; J84.9 Interstitial pulmonary disease, unspecified; J84.116 Cryptogenic organizing pneumonia; J67.9 Hypersensitivity pneumonitis due to unspecified organic dust; G89.12 Acute post-thoracotomy pain | CPT/HCPCS: 99212 ==

== ENCOUNTER 2023-06-07 09:47 | Outpatient (AMB) | payer OTHER, SELFPAY ==
--- NOTE | 2023-06-07 10:28 | A.OFFVIS_ITS ---
Intake Vital Signs 06/07/23 10:30 Height 5 ft 4 in Weight 163 lb BMI 28.0 Pulse 62 Pulse Source Pulse Oximeter Pulse Oximetry (%) 98 Oxygen Delivery Method Room Air Intake Visit Reasons: pulmonary nodule: 3 month f/u Driver/Sales Workers Required: No Allergies glipizide Allergy (Severe, Verified 06/07/23 10:32) Rash/Hives metronidazole [From Flagyl] Allergy (Severe, Verified 06/07/23 10:32) Rash/Hives Penicillins Allergy (Severe, Verified 06/07/23 10:32) Rash/Hives sitagliptin [From Januvia] Allergy (Severe, Verified 06/07/23 10:32) Rash/Hives Sulfa (Sulfonamide Antibiotics) Allergy (Severe, Verified 06/07/23 10:32) Rash/Hives HPI HPI Comments History of Present Illness Details The patient is a 63-year-old woman with a known history of pulmonary nodules. Patient has undergone to surgical biopsies initially the superior segment of the left lower lobe segmentectomy and subsequently a left lower lobe lobectomy after a concerning nodule. both nodules demonstrated a pathology consistent with organizing pneumonia and non-necrotizing granulomas which is typical of hypersensitivity pneumonitis. the patient did undergo blood work ruling out connective tissue conditions an inflammatory conditions. Unfortunately, her hypersensitivity panel was not done as ordered. Patient has been complaining of chest discomfort. Her left sided pleural effusion did clear and her last chest x-ray. Still has chest pains which is likely due to neuropathy at the area on her surgery. Denies any radiations, / in [facility]. She has tried [id number]-[id number] medications without any significant improvement. Will try Lidoderm patch to the area in the meantime. The patient is also using gabapentin. Initially she was scheduled to take it 3 times a day, but, then recommended that she takes it once a day. The patient then had a PET scan and also she made an appointment to be evaluated at [facility]. Recently she had an evaluation. Today reviewed the reports of the previous pathologies demonstrating the non-necrotizing granulomas in the organizing pneumonia. The patient will be getting the actual pathology to [place] in order for them to be able to visualize the slides and make the year own conclusion on the biopsy. The did bring up the question of non tuberculosis mycobacterial infections. In the meantime the patient did not tolerate the CellCept because of adverse effects. She did tolerate the prednisone that was given to her afterwards and that did relieve some of the discomfort. The patient did have the recent biopsy on the left mass. She was given Percocet for pain. The pain is significant. Unfortunately the Percocet is make her feel nauseous and she cannot tolerate them. She will talk to her primary care doctor on Monday regarding using oxycodone by itself that she seems to tolerate well. I will provide her with several tablets of the oxycodone to tie her over the weekend or for her to be able to function after the biopsy. The patient understands that if the chest pain gets worse or if her breathing gets worse she needs to go back to the ER to be evaluated for pneumothorax or other issues. 08/28/2020 the patient is here for pulmo nary follow-up visit. Since we last spoke she did undergo a CT-guided biopsy of the left lower lobe mass. Again demonstrating granulomas and organizing pneumonia. She was evaluated at the [facility] by thoracic surgery and diagnosis of IgG4 was consider but for without by for laboratory data. For current for current the patient has been on prednisone 10 mg p.o. twice a day. She for seems to be tolerating it even with her diabetes. We did talk about other alternative for medications including methotrexate in a ramp. The patient already tried and failed CellCept due to adverse side effects. For will request a repeat CT scan of the chest at this time. In the meantime the patient has been arranged to have [place] pulmonary [place] [facility] [place] The patient has been concerned about some abdominal discomfort that she has feels like that area swollen. Moderate in severity. A pparently she did have an ultrasound of the abdomen done at [place] and she could be. But, we do not have those results. Will request copies of the results. 10/02/2020 the patient is here for pulmonary follow-up visit. Overall she is doing better. She had been on the prednisone 10 mg twice a day and then decrease to daily. Recently she did have a CT scan of the chest [place] [facility] which demonstrated interval decrease in the masslike densities. However, she does have a new 3 mm pulmonary nodule. She had a 2nd opinion at [facility]. She was given a diagnosis of sarcoid per report and she was taken off the prednisone based on the stability. Since she came off the prednisone she has been complaining of some increased discomfort. In addition to that she also has some small joint pains specially in her hands. We did review her blood work demonstrating a normal Jorge Luis level, normal hypersensitivity panel. But, her JULITA was elevated with a small titer 1:80. This brings up the possibility of having interstitial pneumonia with autoimmune features (IPAF) based on the fact that although she does have granuloma like inflammatory reaction her biopsy also demonstrate significant organizing pneumonia. she was ruled out for IgG4 disease. she will have a follow-up at [facility] decide what to do with the prednisone. My professional opinion is that she she had of taper down slowly. at this poi nt I will hold on sending her any additional medication till she is evaluated in [place]. in the meantime the patient had pulmonary function studies which we personally reviewed demonstrating a reversible obstruction consistent with diagnosis of asthma. Although, FEV1 to FVC is still on the low side and she does have some emphysema on her CT scan suggesting the diagnosis of asthma COPD overlap syndrome. 01/11/2021 the patient is here for a pul monary follow-up visit. Overall the patient has been complaining of left-sided pleuritic chest discomfort. She feels the inflammation is returning. Moderate severity. 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 She did have a repeat CT scan of the chest done at [facility] demonstrating new pulmonary nodules. In addition to that pericardial effusion. The patient did have a reimbursement rep in the past but has not followed up. She did follow-up with pulmonology at [facility] [place] the recommended immunosuppressive therapy with immunomodulators. They recommended CellCept. However, she had a reaction potentially and in to CellCept in the past. She is agreeable to rechallenging with a smaller dose of CellCept to see if she can not tolerated. If she does them with them will use an alternative such as Imuran or methotrexate. In the meantime I will give her small dose of prednisone 10 mg daily that she can take until I see her in a few weeks. She will have blood work done does Monday prior to restarting the CellCept. 04/26/2021 the patient is here for pulmo nary follow-up visit. Overall the patient has been doing relatively well from a respiratory status. She continues to have the left-sided pleuritic discomfort. During the last visit back in January she was supposed to start CellCept. However, she has not taking any medications. She has been dealing with significant back pain. She had a fall and likely has some this disease. She will be following up with physiatry may need cortisone injections. She is concerned about her diabetes. Right now she is off all steroid therapy. In view of the persistent left-sided pleuritic discomfort will have her undergo a chest x-ray. Will see if we can visualize the left lower lobe nodular density on x-ray and try to avoid a CT scan. I briefly looked at the ergonomics engineer film of the CT scan and also looked at the x-ray that she has had demonstrating some slight interval decrease in the size of the nodular density. This is reassuring. At this point she will continue holding off on immunomodulator therapy. She will be followed up with [facility] as well. 08/02/2021 the patient is here for pulmonary follow-up visit. She has been having significant back discomfort feels like it is getting worse. She has felt this pain before usually when she has more lung parenchymal involvement. She does have a follow-up with [facility] along with a CT scan the end of August. However she is concerned because she is going on a trip to [place] with her hus band for vacation. However, her pain is significant. She recently had a chest x-ray done at [facility] demonstrating the left-sided parenchymal changes. The patient does need to get a CAT scan although she already is scheduled for [address] [place] [address]. Based on her upcoming trip be reasonable just to treat your with cortical steroid therapy to provide her with some relief and hopefully some shrinking of this mass like inflammatory density. The patient is already again has multiple biopsies suggesting a component of organizing pneumonia as well as granulomatous inflammation. her microbiology has been negative for any fungal or mycobacterial disease. If the patient response to the low-dose prednisone she can consider staying on a small dose versus starting on immunomodulator therapy. She will further discuss the management with her director of intelligence from [place]. Also to note she has been dealing with a dental infection. She has been on multiple courses of antibiotics including doxycycline which resulted in an allergic reaction, clindamycin and more recently azithromycin. She does have allergies to penicillin. She does complaint of productive cough with green sputum. The antibiotics have not helped her symptoms. Ideally which should have a sputum culture. However, will try her on quinolone therapy and if she is not better then will consider is getting culture at that point. 09/14/2021 the patient is here for a pulmonary follow-up visit. Apparently she has been having worsening left-sided chest discomfort. Close to the area her surgical site. The patient was evaluated by thoracic surgery [place] [facility]. She did have a repeat CT scan of the chest demonstrating interval worsening of the masslike density that she has in the left lower lobe. It appears to be tethering on the pleura which could result in her pleuritic discomfort. She also has a lot of post thoracotomy syndrome discomfort. She looks very uncomfortable at this time. She has been on 10 mg of prednisone. But, does not appear to be sufficient enough to decrease the progressive nature of this inflammatory process. Did is granulomatous process is likely nodular sarcoid versus a hypersensitivity type of reaction. Still, she does need to be on immunosuppressive therapy. I do believe that restarting the CellCept would be a better option. She did have a questionable reaction in the past. Will go ahead and start slower at 500 mg daily to see how she tolerates that 1st. If for some reason she does not tolerate the mycophenolate will switch her to a different immunomodulator. Patient also will double up on her prednisone to try to relieve some of the discomfort and inflammation. She does have diabetes therefore will try to minimize the prednisone. As far as pain control she has use oxycodone in the past. At this point I think is reasonable for her to receive some pain control since she appears to be so uncomfortable. The patient will undergo blood work in a couple weeks after starting the mycophenolate in order to make sure that she is tolerating the medicine. Will also do additional blood work including repeating her JULITA since it was elevated in the past. 10/08/2021 The patient is here for a pul monary follow up visit. She is tolerating the cellcept 500mg daily. She is still taking a small dose of prednisone 10mg. She is still having pleuritic chest pain. Recent CT chest done [place] [facility] demonstrated that her mass like density is getting worse. The plan is to increase her Cellcept slowly to make sure she does not have any adversed effects. 11/19/2021 the patient is here for pulmonary follow-up visit. The patient recently recovered from COVID. She did receive monoclonal antibodies. After she did develop a lower respiratory bacterial infection and was started on doxycycline then switched over to Augmentin after developing adverse effects. She completed the course and she did feel better and currently she is doing better. Currently she is taking mycophenolate 500 mg twice a day. We did talk about increasing the dose to 1000 mg in the morning and 500 mg at nighttime. When she can tolerate that does will repeat her blood work and chest x-ray to make sure that she is tolerating the medicine. Her chest discomfort seems to be better at this time. She also continues on the prednisone. Will work on tapering down the prednisone as she increases the mycophenolate. 01/24/2022 the patient is here for sick visit. Apparently she had been tolerating the mycophenolate at a 1000 mg a day when she started noticing some blotching of her skin like some bruising. She was not sure if it was from the mycophenolate so therefore she decided to stop it. Now that she has been off it she started developing again the left-sided pleuritic discomfort. Moderate severity. The rash or the bruising subsequently has subsided. Therefore because of the discomfort she restarted 1 tablet of the mycophenolate but I believe that was just today. She did come in and she had an x-ray demonstrating no significant changes. The patient understands that she has an inflammatory allergy me condition and therefore needs to continue taking some component of anti-inflammatory medicine in order to stabilize her disease. She understands she has a progressive disease otherwise therefore, she will go ahead and restart the mycophenolate and she will have blood work including a platelet count and PT INR to make sure that her blood clotting is within normal limits while on the medicine. If for some reason she develops bruising again while on mycophenolate and start to being adverse effects to the medication then we did talk about considering an alternative agent such as methotrexate. The patient also may be able to take a small dose of prednisone in case she is not able to increase her immunomodulator to a reasonable dose. 03/07/2022 the patient is here for a pul [facility] follow-up visit. The patient overall is feeling better. Her left-sided pleuritic discomfort has subsided. She is tolerating the 10 mg of prednisone which she has been tapering down and also has been tolerating the CellCept 500 mg daily only. She had been taking it twice a day she did have some increased GI symptoms. She seems to be tolerating well the lower dose. The patient did have a CT scan of the chest done [place] [facility] demonstrating interval decrease on the size of the masslike density from 2.4 cm to not 1.2 cm. This is overall reassuring. The patient understands that she needs to stay on some degree of immune modulation. The patient also had evidence of osteopenia on the CT scan. We did talk about the problem of using prednisone and we can in the bones. Therefore we will try to wean off the prednisone completely but the patient also needs to try to increase the CellCept to twice a day. She did 1 full tablet in the morning and half a tablet at nighttime if the patient continues to be symptomatic while off the prednisone then she may have to increase it to 1 tablet are 500 mg twice a day. Will continue to monitor her progress on the medication. When she returns in a couple months will plan to repeat blood work. 05/13/2022 the patient is here for a pulmonary follow-up visit. Overall the patient is doing fair. Her left-sided pleuritic discomfort seems to still be subsiding. Although it is not completely gone. The patient was able to wean off completely from the prednisone. However, she did not increase the CellCept. The patient understands that we need to continue with immunomodulator therapy I had a good enough dose to continue drinking this masslike density. Her last CT scan of the chest which we personally reviewed demonstrated interval trach in from 2.4-1.2 cm. However we need to continue to maintain her on therapy now that she is off the prednisone she needs additional immunomodulator therapy. The patient understands and she will do so. When she does increase the medication plan to follow-up with an x-ray. Her last CT scan of the chest I believe was not the fall of 2021. Therefore will plan to repeat the CT scan sometime around that time. 08/12/2022 the patient is here for pulmona ry has follow-up visit. The patient overall feels a lot better. She is tolerating the CellCept at a lower dose. She is to be affecting beneficial. He is also seeing pain specialist and is currently on a pain patch that is also helping control the pain. The patient was supposed to have a chest x-ray but was not able to do it because she did not have enough time. Clinically the patient doing well I did give her an x-ray sleeping she is going to have it done closer to home. In regards to the medication she is going to continue with current dose. We do need to check her CBC and also LFTs and chemistries to make sure that she is tolerating the medicine. In addition to that will plan to do another x-ray when she comes back in the fall. 12/09/2022 the patient is here for a pulmonary follow-up visit. The patient is having significant issues with dizziness. She has been following closely with the pain management Clinic. She was started on a new opiate and she is having significant dizziness. In the office she has been very dizzy having to hold her 's arm. We did the orthostatic blood pressures come up but, the patient was not orthostatic actually blood pressure is little on the high side. She does take blood pressure medications. She will talk to the pain management Clinic regarding her symptoms as this is likely an adverse effect from the medication. The patient also has been taking the CellCept. Seems to be tolerating it well. Will go ahead and request a CT scan of the chest to address her inflammatory interstitial lung disease. If the area looks the same or worse will have to increase the CellCept. will have to wait for those results. In the meantime the patient has continued to have significant weight loss. 03/09/2023 the patient is here for a hos pital follow-up visit. She was recently hospitalized at [facility] back in January of this year. She did have an elevated brain nitrate peptide. She had cardiac enzymes which were negative. She did undergo a stress test that demonstrated a fix defects suggesting an old myocardial infarction. She does have follow-up with cardiology soon to further discuss the findings and further evaluation. In the meantime she also had a CTA ruling out pulmonary emboli she did have the findings of her masslike density in the left lower lobe and also smaller nodular density in the right hemithorax. Compared to previous findings the area does not look as concerning. She has been on the CellCept lower dose of 500 twice a day. Will go ahead and increase that dose to treat her for her interstitial lung disease which in this case is a combination of cryptogenic organizing pneumonia versus a hypersensitivity type of reaction. 06/07/2023 patient is here for pulmonary follow-up visit. She is finally better. She was exposed to other sick contacts, grandchild. She developed cold-like symptoms. Her COVID test was negative. She did not require any prescription medications. After few days she did feel better. Her breathing is also better. She had a cardiac workup. This point she is on cardioprotective medications. In the meantime she did have a CT scan of the chest that we personally reviewed. It appears that the nodular densities in the left lower lobe have improved. She does have some residual scarring that area. Her the pulmonary nodules are slightly better or stable. Overall seems to be responding well to the current dose mycophenolate 1 g b.i.d.. She is going to continue this dose. She does have to get blood work to make sure that she is tolerate medication well. [facility] Medical History (Updated 06/07/23 @ 18:51 by Natanael Woods MD) Lung mass Pericardial effusion Asthma Interstitial pneumonia with autoimmune features Abnormal PET of left lung Cryptogenic organizing pneumonia Hypersensitivity pneumonitis Post-thoracotomy pain syndrome Pulmonary nodules Social History Patient Tobacco Use Status: Never used Tobacco Review of Systems Const Denies night sweats ENT Denies change in voice, Reports dizziness, Denies lip swelling, Denies mouth pain, Reports nasal congestion, Reports nasal discharge and Denies tongue swelling Card Denies chest pain and Denies dyspnea on exertion Resp Denies change in phlegm color, Denies chest congestion, Reports cough, Denies hemoptysis, Denies excessive phlegm production, Reports pain on inspiration, Reports pain with cough and Denies dyspnea on exertion GI Denies abdominal pain Musc Reports myalgias Neuro Denies Neuro-related abnormal movements and Reports dizziness Psych Denies no additional complaints Brandon/Lymph Denies easy bleeding and Denies lymphadenopathy Aller/Immun Denies lip swelling and Denies tongue swelling Physical Exam Vital Signs: Last Vital Signs Pulse 62 06/07/23 10:30 Pulse Ox 98 06/07/23 10:30 Oxygen Delivery Method Room Air 06/07/23 10:30 BMI result Body Mass Index 28.0 Const General: alert Neck Neck: Yes normal visual inspection, Yes full ROM and Yes no lymphadenopathy Chest Chest palpation & inspection: no tenderness Resp Effort & Inspection: normal respiratory effort Auscultation: diminished lung sounds Cardio Rate: regular rate Rhythm: regular rhythm Heart sounds: S1 normal heart sound present and S2 normal heart sound present GI Palpation (GI): Soft to palpation and nontender Auscultation: normal bowel sounds Skin General skin exam: rashes and/or lesions noted Assessment & Plan Assessment & Plan (1) Interstitial pneumonia with autoimmune features: Comment: versus sarcoid Code(s): J84.9 - Interstitial pulmonary disease, unspecified (2) Cryptogenic organizing pneumonia: Comment: AFOP Code(s): J84.116 - Cryptogenic organizing pneumonia (3) Post-thoracotomy pain syndrome: Code(s): G89.12 - Acute post-thoracotomy pain (4) Pulmonary nodules: Code(s): R91.8 - Other nonspecific abnormal finding of lung field (5) Asthma: Comment: asthma COPD overlap syndrome Code(s): J45.909 - Unspecified asthma, uncomplicated Qualifiers: Asthma complication type: uncomplicated Asthma persistence: persistent Asthma severity: moderate Qualified Code(s): J45.40 - Moderate persistent asthma, uncomplicated (6) Hypersensitivity pneumonitis: Comment: based on biopsies with organizing pneumonia and granulomas due to HSP. R/O connective tissue disease, with labs and exam. Not consistent with sarcoid, although nodular sarcoid is in the differential. Code(s): J67.9 - Hypersensitivity pneumonitis due to unspecified organic dust (7) Lung mass: Comment: resolved Code(s): R91.8 - Other nonspecific abnormal finding of lung field Plan Contiue JAMEL as needed contiue Flovent HFA/Anoro continue Cellcept 1000mg BID Bloodwork in 4-[address] chest improved pain management F/U 6 months Orders: Orders Basic Metabolic Panel Today R91.8 - Other nonspecific abnormal finding of lung field Liver Panel Today R91.8 - Other nonspecific abnormal finding of lung field Complete Blood Count Auto Diff Today R91.8 - Other nonspecific abnormal finding of lung field Coding Level of Care Code Est Pt Level 4 (61530) Diagnoses Interstitial pneumonia with autoimmune features J84.9 Cryptogenic organizing pneumonia J84.116 Post-thoracotomy pain syndrome G89.12 Pulmonary nodules R91.8 Moderate persistent asthma without complication J45.40 Asthma complication type: uncomplicated Asthma persistence: persistent Asthma severity: moderate Hypersensitivity pneumonitis J67.9 Lung mass R91.8 Time Spent (min) 17
[2023-06-07 10:30] VITALS: PULSE 62; O2SAT 98; BMI 28.0
== END 2023-06-07 10:54 | disposition home or self-care (01) ==
PROVIDERS: PCP Internal Medicine; Visit Provider Hospitalist
DX: J84.9 Interstitial pulmonary disease, unspecified (principal); J84.116 Cryptogenic organizing pneumonia; G89.12 Acute post-thoracotomy pain; R91.8 Other nonspecific abnormal finding of lung field; J45.40 Moderate persistent asthma, uncomplicated; J67.9 Hypersensitivity pneumonitis due to unspecified organic dust
CPT/HCPCS: 99214

== ENCOUNTER → 2023-06-07 09:47 | Outpatient (BNVA) | payer OTHER, SELFPAY | PROVIDERS: PCP Internal Medicine; Visit Provider Hospitalist ==

== ENCOUNTER 2023-12-08 10:38 | Outpatient (AMB) | payer OTHER, SELFPAY ==
--- NOTE | 2023-12-08 10:42 | MHC.OFFVIS ---
Vital Signs 12/08/23 10:43 Height 5 ft 4 in Weight 163 lb 12.855 oz BMI 28.1 Pulse 61 Pulse Source Pulse Oximeter Pulse Oximetry (%) 100 Oxygen Delivery Method Room Air Intake Visit Reasons: pulmonary nodule Production Engineer Required: No Allergies glipizide Allergy (Severe, Verified 12/08/23 10:44) Rash/Hives metronidazole [From Flagyl] Allergy (Severe, Verified 12/08/23 10:44) Rash/Hives Penicillins Allergy (Severe, Verified 12/08/23 10:44) Rash/Hives sitagliptin [From Januvia] Allergy (Severe, Verified 12/08/23 10:44) Rash/Hives Sulfa (Sulfonamide Antibiotics) Allergy (Severe, Verified 12/08/23 10:44) Rash/Hives HPI Comments Details: The patient is a 63-year-old woman with a known history of pulmonary nodules. Patient has undergone to surgical biopsies initially the superior segment of the left lower lobe segmentectomy and subsequently a left lower lobe lobectomy after a concerning nodule. both nodules demonstrated a pathology consistent with organizing pneumonia and non-necrotizing granulomas which is typical of hypersensitivity pneumonitis. the patient did undergo blood work ruling out connective tissue conditions an inflammatory conditions. Unfortunately, her hypersensitivity panel was not done as ordered. Patient has been complaining of chest discomfort. Her left sided pleural effusion did clear and her last chest x-ray. Still has chest pains which is likely due to neuropathy at the area on her surgery. Denies any radiations, / in [facility]. She has tried excg-xle-obbskot medications without any significant improvement. Will try Lidoderm patch to the area in the meantime. The patient is also using gabapentin. Initially she was scheduled to take it 3 times a day, but, then recommended that she takes it once a day. The patient then had a PET scan and also she made an appointment to be evaluated at [facility]. Recently she had an evaluation. Today reviewed the reports of the previous pathologies demonstrating the non-necrotizing granulomas in the organizing pneumonia. The patient will be getting the actual pathology to [facility] in order for them to be able to visualize the slides and make the year own conclusion on the biopsy. The did bring up the question of non tuberculosis mycobacterial infections. In the meantime the patient did not tolerate the CellCept because of adverse effects. She did tolerate the prednisone that was given to her afterwards and that did relieve some of the discomfort. The patient did have the recent biopsy on the left mass. She was given Percocet for pain. The pain is significant. Unfortunately the Percocet is make her feel nauseous and she cannot tolerate them. She will talk to her primary care doctor on Monday regarding using oxycodone by itself that she seems to tolerate well. I will provide her with several tablets of the oxycodone to tie her over the weekend or for her to be able to function after the biopsy. The patient understands that if the chest pain gets worse or if her breathing gets worse she needs to go back to the ER to be evaluated for pneumothorax or other issues. 08/12/2022 the patient is here for pulmonary has follow-up visit. The patient overall feels a lot better. She is tolerating the CellCept at a lower dose. She is to be affecting beneficial. He is also seeing pain specialist and is currently on a pain patch that is also helping control the pain. The patient was supposed to have a chest x-ray but was not able to do it because she did not have enough time. Clinically the patient doing well I did give her an x-ray sleeping she is going to have it done closer to home. In regards to the medication she is going to continue with current dose. We do need to check her CBC and also LFTs and chemistries to make sure that she is tolerating the medicine. In addition to that will plan to do another x-ray when she comes back in the fall. 12/09/2022 the patient is here for a pulmonary follow-up visit. The patient is having significant issues with dizziness. She has been following closely with the pain management Clinic. She was started on a new opiate and she is having significant dizziness. In the office she has been very dizzy having to hold her 's arm. We did the orthostatic blood pressures come up but, the patient was not orthostatic actually blood pressure is little on the high side. She does take blood pressure medications. She will talk to the pain management Clinic regarding her symptoms as this is likely an adverse effect from the medication. The patient also has been taking the CellCept. Seems to be tolerating it well. Will go ahead and request a CT scan of the chest to address her inflammatory interstitial lung disease. If the area looks the same or worse will have to increase the CellCept. will have to wait for those results. In the meantime the patient has continued to have significant weight loss. 03/09/2023 the patient is here for a hospital follow-up visit. She was recently hospitalized at [facility] back in January of this year. She did have an elevated brain nitrate peptide. She had cardiac enzymes which were negative. She did undergo a stress test that demonstrated a fix defects suggesting an old myocardial infarction. She does have follow-up with cardiology soon to further discuss the findings and further evaluation. In the meantime she also had a CTA ruling out pulmonary emboli she did have the findings of her masslike density in the left lower lobe and also smaller nodular density in the right hemithorax. Compared to previous findings the area does not look as concerning. She has been on the CellCept lower dose of 500 twice a day. Will go ahead and increase that dose to treat her for her interstitial lung disease which in this case is a combination of cryptogenic organizing pneumonia versus a hypersensitivity type of reaction. 06/07/2023 patient is here for pulmonary follow-up visit. She is finally better. She was exposed to other sick contacts, grandchild. She developed cold-like symptoms. Her COVID test was negative. She did not require any prescription medications. After few days she did feel better. Her breathing is also better. She had a cardiac workup. This point she is on cardioprotective medications. In the meantime she did have a CT scan of the chest that we personally reviewed. It appears that the nodular densities in the left lower lobe have improved. She does have some residual scarring that area. Her the pulmonary nodules are slightly better or stable. Overall seems to be responding well to the current dose mycophenolate 1 g b.i.d.. She is going to continue this dose. She does have to get blood work to make sure that she is tolerate medication well. 12/08/2023 the patient is here for a pulmonary follow-up visit. The patient overall has been doing well. She has been losing weight but is likely medication related. She is also making lifestyle changes. The patient did have a recent CT scan of the chest which I personally reviewed with her. The masslike density has significantly improved. She is tolerating the mycophenolate 1 g twice a day. Her blood work has been done elsewhere. She will need to have additional blood work to make sure she is tolerating the medication well. At this point she continues to respond to the immunomodulator therapy for her inflammatory process. She also continues with respiratory medications with good effect. Patient overall doing well. Follow-up in 6 months. Plan to repeat the CT scan a year from her last. [facility] Medical History (Updated 06/07/23 @ 18:51 by Natanael Woods MD) Lung mass Pericardial effusion Asthma Interstitial pneumonia with autoimmune features Abnormal PET of left lung Cryptogenic organizing pneumonia Hypersensitivity pneumonitis Post-thoracotomy pain syndrome Pulmonary nodules Social History Patient Tobacco Use Status: Never used Tobacco Review of Systems Const Denies night sweats and Reports weight loss ENT Denies change in voice, Reports dizziness, Denies lip swelling, Denies mouth pain, Reports nasal congestion, Reports nasal discharge and Denies tongue swelling Card Denies chest pain and Denies dyspnea on exertion Resp Denies change in phlegm color, Denies chest congestion, Reports cough, Denies hemoptysis, Denies excessive phlegm production, Denies pain on inspiration, Denies pain with cough and Denies dyspnea on exertion GI Denies abdominal pain Musc Reports myalgias Neuro Denies Neuro-related abnormal movements and Reports dizziness Psych Denies no additional complaints Brandon/Lymph Denies easy bleeding and Denies lymphadenopathy Aller/Immun Denies lip swelling and Denies tongue swelling Physical Exam Vital Signs: Last Vital Signs Pulse 61 12/08/23 10:43 Pulse Ox 100 12/08/23 10:43 Oxygen Delivery Method Room Air 12/08/23 10:43 BMI result Body Mass Index 28.1 Const General: alert Neck Neck: Yes normal visual inspection, Yes full ROM and Yes no lymphadenopathy Chest Chest palpation & inspection: no tenderness Resp Effort & Inspection: normal respiratory effort Auscultation: diminished lung sounds Cardio Rate: regular rate Rhythm: regular rhythm Heart sounds: S1 normal heart sound present and S2 normal heart sound present GI Palpation (GI): Soft to palpation and nontender Auscultation: normal bowel sounds Skin General skin exam: rashes and/or lesions noted Assessment & Plan Assessment & Plan (1) Interstitial pneumonia with autoimmune features: Comment: versus sarcoid Code(s): J84.9 - Interstitial pulmonary disease, unspecified Category: Medical (2) Cryptogenic organizing pneumonia: Comment: AFOP Code(s): J84.116 - Cryptogenic organizing pneumonia Category: Medical (3) Post-thoracotomy pain syndrome: Code(s): G89.12 - Acute post-thoracotomy pain Category: Medical (4) Pulmonary nodules: Code(s): R91.8 - Other nonspecific abnormal finding of lung field Category: Medical (5) Asthma: Comment: asthma COPD overlap syndrome Code(s): J45.909 - Unspecified asthma, uncomplicated Category: Medical Qualifiers: Asthma complication type: uncomplicated Asthma persistence: persistent Asthma severity: moderate Qualified Code(s): J45.40 - Moderate persistent asthma, uncomplicated (6) Hypersensitivity pneumonitis: Comment: based on biopsies with organizing pneumonia and granulomas due to HSP. R/O connective tissue disease, with labs and exam. Not consistent with sarcoid, although nodular sarcoid is in the differential. Code(s): J67.9 - Hypersensitivity pneumonitis due to unspecified organic dust Category: Medical (7) Lung mass: Comment: resolved Code(s): R91.8 - Other nonspecific abnormal finding of lung field Category: Medical Plan Contiue JAMEL as needed contiue Flovent HFA/Anoro continue Cellcept 1000mg BID Bloodwork in 4-[address] chest in 6 months pain management F/U 6 months Orders: Orders Complete Blood Count Auto Diff 12/08/23 R91.8 - Other nonspecific abnormal finding of lung field Liver Panel 12/08/23 R91.8 - Other nonspecific abnormal finding of lung field Basic Metabolic Panel 12/08/23 R91.8 - Other nonspecific abnormal finding of lung field CT chest wo IV con 6 Months R91.8 - Other nonspecific abnormal finding of lung field Coding Level of Care Code Est Pt Level 4 (35300) Complex EM visit Add On G2211 Diagnoses Interstitial pneumonia with autoimmune features J84.9 Cryptogenic organizing pneumonia J84.116 Post-thoracotomy pain syndrome G89.12 Pulmonary nodules R91.8 Moderate persistent asthma without complication J45.40 Asthma complication type: uncomplicated Asthma persistence: persistent Asthma severity: moderate Hypersensitivity pneumonitis J67.9 Lung mass R91.8 Time Spent (min) 17
[2023-12-08 10:43] VITALS: PULSE 61; O2SAT 100; BMI 28.1
== END 2023-12-08 11:10 | disposition home or self-care (01) ==
PROVIDERS: PCP Internal Medicine; Visit Provider Hospitalist
DX: J84.9 Interstitial pulmonary disease, unspecified (principal); J84.116 Cryptogenic organizing pneumonia; G89.12 Acute post-thoracotomy pain; R91.8 Other nonspecific abnormal finding of lung field; J45.40 Moderate persistent asthma, uncomplicated; J67.9 Hypersensitivity pneumonitis due to unspecified organic dust
CPT/HCPCS: 99214; G2211

== ENCOUNTER → 2023-12-08 10:38 | Outpatient (BNVA) | payer OTHER, SELFPAY | PROVIDERS: PCP Internal Medicine; Visit Provider Hospitalist | DX: R91.8 Other nonspecific abnormal finding of lung field (principal) ==

== ENCOUNTER 2024-05-23 10:53 | Outpatient (REF) | payer MEDICARE, SELFPAY ==
--- NOTE | ~2024-05-23 | CT_ITS ---
CLINICAL HISTORY: R91.8 - Other nonspecific abnormal finding of lung field CT chest without contrast Comparison: 06/01/2020 Findings: The heart is normal size. The visualized thyroid and mediastinum are unremarkable. There is a 0.3 cm right upper lobe pulmonary lesion, unchanged. There is left lower lobe consolidation, possible pneumonia, subsegmental atelectasis, or scarring. There are changes suggesting pulmonary bullous disease. The upper abdomen is unremarkable. No acute fractures. IMPRESSION: 1. Pulmonary bullous disease with left lower lobe consolidation, differential considerations noted. This document has been electronically signed by: Trevin Bey MD on 05/24/2024 04:55:56
--- OUTSIDE RECORDS SUMMARY | 2024-05-23 11:38 | XMS_ITS | Encounter Summary ---
Author Organization [employer] Address [address] [place] [address] Care Team Providers Care Steeping Press Operator Name Role Phone Wilfredo Marin MD Primary Care Provider [phone] Reason for Referral * Consultation (Routine) - Pending Review Specialty Diagnoses / Procedures Referred By Jordyn fuentes Referred To Contact Cardiology Diagnoses Disease of cardiovascular system Wilfredo Marin MD [address] [place] [address] Phone: tel: fax: Referral ID Status Reason Start Date Expiration Date Visits Requested Visits Authorized [id number] Pending Review Specialty Services Required 05/21/2024 05/21/2025 1 1 Reason for Visit * Reason Onset Date Comments Referral 05/21/2024 Encounter Details Date Type Department Care Team (Late st Contact Info) Description 05/21/2024 Telephone Internal Medicine - [address] [phone] Wilfredo Marin MD [address] [place] [address] Referral Social History Tobacco Use Types Packs/Day Years Used Date Smoking Tobacco: Former Cigarettes 0.5 35.7 0 04/10/1974 - 12/31/2009 Smokeless Tobacco: Never Alcohol Use Standard Drinks/Week Comments No 0 (1 standard drink = 0.6 oz pur e alcohol) Housing Instability Answer Date Recorde d Are you worried that in the next 2 months you may not have stable housing? No 03/12/2024 Food Access & Nutrition Answer Date Rec orded Do you have access to a vari ety of food including fruits and vegetables? Yes 03/12/2024 Health Literacy Answer Date Recorded How often do you need to hav e someone help you when you read instructions, pamphlets, or other written material from your doctor or pharmacy? Never 03/12/2024 Caregiver: How often do you need to have someone help you when you read instructions, pamphlets, or other written material from your doctor or pharmacy? Not on file 03/12/2024 Financial Risk Answer Date Recorded How hard is it for you to pa y for the very basics like food, housing, medical care, and air conditioning / heating? Somewhat hard 03/12/2024 Transportation Answer Date Recorded Has the lack of transportati on kept you from meetings, work, or from getting things needed for daily living? No Has the lack of transportati on kept you from medical appointments or from getting medications? No 03/12/2024 Social Isolation Answer Date Recorded How often do you feel lonely or isolated from th ose around you? Never 03/12/2024 Food Risk Answer Date Recorded Within the past 12 months we worried whether our food would run out before we got money to buy more. Never true 03/12/2024 Within the past 12 months th e food we bought just didn't last and we didn't have money to get more. Never true 03/12/2024 Dependent Care Answer Date Recorded Do you need help finding or paying for care for your loved ones. For example, children's ministries director or elderly care for an older adult? No 03/12/2024 Education Answer Date Recorded Do you think completing more education or training, like finishing a GED, going to college, or learning a trade, would be helpful for you? No 03/12/2024 Employment and Income Answer Date Recor ded During the last four weeks, have you been actively looking for work? No 03/12/2024 Living Situation Answer Date Recorded What is your living situation? 1 05/13/2023 Comments No Sex and Gender Information Value Date Recorded Sex Assigned at Female 05/09/2024 3:47 AM EST Legal Sex Female 10:22 AM EST Gender Identity Female 05/09/2024 3:47 AM EST Sexual Orientation Straight 05/09/2024 4: 00 AM EST documented as of this encounter Progress Notes * Wilfredo Marin MD - 05/21/2024 12:42 PM EST Referral to cardiology signed. * Mary Martinez MA - 05/21/2024 11:24 AM EST Referral pending * Flor Mattson - 05/21/2024 11:01 AM EST Referral Request: What insurance does the patient have today? [facility] Referrals cannot be processed if the insurance is not accurate. If the insurance listed above in red is NO BILLING INFORMATION FOUND FOR THIS ENCOUTNER The patients correct insurance must be obtained and registered in [facility] or their referral can not be processed. Is this a retro request? no. If yes for what date of service do you need the retro referral? not applicable Who is calling to request this referral? [facility] cardiology If the caller is not the patient, what is their name? N/a faxed to office Ask the patient WHO referred them to this specialty: Patient was seen by external specialist Cardiology who has now referred them to this specialty FIRST and LAST NAME of SPECIALIST PATIENT is seeing: n/a [facility] NPI # [id number] What specialty is this? Cardiology DIAGNOSIS Patient is being seen for (Not a body part or a procedure): pt will be scheduled at [facility] for a Coronary CTA and needs a PCP ins. Referral Have you seen this SPECIALIST for this PROBLEM/DX before? If YES, when? No Have you checked REVIEW or the APPT DESK to see if this referral has already been done or has visits left? yes Is this visit: Initial Visit Address of Specialist: [address] [place] [address] Phone # of Specialist: [phone] Fax #: (if applicable): [phone] Does patient have an appointment scheduled?: no Date of appointment- (including a retro-request): TBD Is this appointment related to: documented in this encounter Plan of Treatment Upcoming Encounters Date Type Department Care Team (Late st Contact Info) Description 06/21/2024 11:00 AM EDT Office Visit Internal Medicine - [address] [address] Wilfredo Marin MD [address] [place] [address] 09/06/2024 7:40 AM EDT Office Visit [facility] - [address] [facility] [address] [place] [phone] Meagan Alberto NP [address] [place] [phone] Scheduled Referrals Name Type Priority Associated Diagnoses Orde r Schedule Ambulatory referral to Cardiology Outpatient Referral Routine Disease of cardiovascular system 1 Occurrences starting 05/21/2024 until 05/21/2025 documented as of this encounter Visit Diagnoses Diagnosis Disease of cardiovascular system- Primary Unspecified cardiovascular disease documented in this encounter Care Teams Steeping Press Operator Relationship Specialty Start Date End Date Wilfredo Mairn MD [address] [place] [address] PCP - General Internal Medicine 03/07/17 documented as of this encounter
--- OUTSIDE RECORDS SUMMARY | 2024-05-23 11:39 | XMS_ITS | Encounter Summary ---
Author Organization [employer] Address [address] [place] [address] Care Team Providers Care Cut Out Stitcher Name Role Phone Wilfredo Marin MD Primary Care Provider [phone] Reason for Visit * Reason Onset Date Comments Medication Problem 03/27/2024 provider call back 03/27/2024 Encounter Details Date Type Department Care Team (Late st Contact Info) Description 03/27/2024 [facility] [address] [place] [address] Wilfredo Marin MD [address] [place] [phone] Medication Problem; provider call back Social History Tobacco Use Types Packs/Day Years [...] care for your loved ones. For example, registered nurse maternal child or elderly care for an older adult? [...] is your living situation? 1 05/13/2023 Comments Unknown Sex and Gender Information Value Date Recorded Sex Assigned at Female 05/09/2024 3:47 AM EST Legal Sex Female 10:22 AM EST Gender Identity Female 05/09/2024 3:47 AM EST Sexual Orientation Straight 05/09/2024 4: 00 AM EST documented as of this encounter Progress Notes * Mary Martinez MA - 04/01/2024 9:23 AM EST 2nd attempt to reach pt, no answer. * Mary Martinez MA - 03/29/2024 8:13 AM EST Spoke with pt's pharmacy, they do not have it in stock and it is on backorder for them to order. * Mary Martinez MA - 03/27/2024 2:14 PM EST Msg left for pt. She will need to call around to see if any pharmacies have med in stock. She is tocall back with another pharmacy or to let us know if none have med so we can send alternative. * Franko Lopez - 03/27/2024 1:42 PM EST Patient is calling because she is due for injection for Trulicity 1.5 MG and the pharmacy stated that this medication is on back order. Patient needs an alternative or another pharmacy that has this medication in stock. Patient also wants to know if she is unable to receive the medication should she take more metformin 500 MG. documented in this encounter Plan of Treatment Upcoming Encounters Date Type Department Care Team (Late st Contact Info) Description 06/21/2024 11:00 AM EDT Office Visit [facility] - [facility] [address] [place] [address] Wilfredo Marin MD [address] [place] [address] 09/06/2024 7:40 AM EDT Office Visit [facility] - [address] [place] [phone] Meagan Alberto NP [address] [place] [phone] documented as of this encounter Visit Diagnoses Not on filedocumented in this encounter Care Teams Cut Out Stitcher Relationship Specialty Start Date End Date iWlfredo Marin MD [address] [place] [id number] PCP - General Internal Medicine 03/07/17 documented as of this encounter
--- OUTSIDE RECORDS SUMMARY | 2024-05-23 11:39 | XMS_ITS | Encounter Summary ---
Author Organization [employer] Address [address] [place] [address] Care Team Providers Care Plater Production Name Role Phone Wilfredo Marin MD Primary Care Provider [phone] [phone] Reason for Visit * Reason Onset Date Comments prior authorization 04/29/2024 Encounter Details Date Type Department Care Team (Late st Contact Info) Description 04/29/2024 [facility] [address] [place] [phone] Wilfredo Marin MD [address] [place] [id number] prior authorization Social History Tobacco Use Types Packs/Day Years [...] care for your loved ones. For example, child care centre director or elderly care for an older [...] as of this encounter Progress Notes * Hue Phipps MA - 05/08/2024 3:23 PM EST [facility] Approved from 04/10/24 until 05/02/26 Authorization case approval number # [id number] Approval faxed to [facility] [phone] * Hue Phipps [place] - 05/02/2024 10:52 AM EST Prior authorization for the trulicity was completed today on cmm Dx code type 2 diabetes mellitus Continuation of therapy Trials Avandamet Januvia Metformin Pioglitazone, Lantus Glipizide Avandia * Jose Lyons - 04/29/2024 4:39 PM EST Prior Authorization for Medication-do not complete and send this encounter unless you have the fax from the pharmacy. Is this a Cover My Meds request: [place] of Medication dulaglutide (Trulicity) 1.5 mg/0.5 mL pen injector injection Dose of Medication 1.5 mg/0.5 mL What is the RX # from the faxed refill? no How does patient take this med? Inject 0.5 mL (1.5 mg total) under the skin every 7 (seven) days. What Pharmacy did the fax come from: [facility] fax #: no documented in this encounter Plan of Treatment Upcoming Encounters Date Type Department Care Team (Late st Contact Info) Description 06/21/2024 11:00 AM EDT [facility] [address] [place] [address] Wilfredo Marin MD [address] [place] [address] 09/06/2024 7:40 AM EDT Office Visit [facility] - [facility] [address] [facility] [address] [place] [phone] Meagan Alberto NP [address] [place] [address] documented as of this encounter Visit Diagnoses Not on filedocumented in this encounter Care Teams Plater Production Relationship Specialty Start Date End Date Wilfredo Marin MD [address] [place] [address] PCP - General Internal Medicine 03/07/17 documented as of this encounter
--- OUTSIDE RECORDS SUMMARY | 2024-05-23 11:39 | XMS_ITS | Encounter Summary ---
Author Organization [employer] Address [address] [place] [address] Care Team Providers Care Dry Roaster Name Role Phone Wilfredo Marin MD Primary Care Provider [phone] [phone] Encounter Details Date Type Department Care Team (Late Contact Info) Description 02/13/2024 Lab Requisition [facility] Lab [address] [facility] [place] [phone] Natanael Woods MD [address] [facility] [address] [place] [address] Other nonspecific abnormal finding of lung field Social History Tobacco Use Types Packs/Day Years Used Date Smoking Tobacco: Former Cigarettes 0.5 35.7 0 04/10/1974 - 12/31/2009 Smokeless Tobacco: Never Alcohol Use Standard Drinks/Week Comments No 0 (1 standard drink = 0.6 oz pur e alcohol) Comments Unknown Sex and Gender Information Value Date Recorded Sex Assigned at Female 05/09/2024 3:47 AM EST Legal Sex Female 10:22 AM EST Gender Identity Female 05/09/2024 3:47 AM EST Sexual Orientation Straight 05/09/2024 4: 00 AM EST documented as of this encounter Plan of Treatment Upcoming Encounters Date Type Department Care Team (Late Contact Info) Description 06/21/2024 11:00 AM EDT [facility] [address] [place] [address] Wilfredo Marin MD [address] [place] [address] 09/06/2024 7:40 AM EDT Office Visit [facility] - [address] [place] [phone] Meagan Alberto NP [address] [place] [phone] documented as of this encounter Visit Diagnoses Diagnosis Other nonspecific abnormal finding of lung field documented in this encounter Care Teams Dry Roaster Relationship Specialty Start Date End Date Wilfredo Marin MD [address] [place] [address] PCP - General Internal Medicine 03/07/17 documented as of this encounter
--- OUTSIDE RECORDS SUMMARY | 2024-05-23 11:39 | XMS_ITS | Encounter Summary ---
Author Organization [employer] Address [address] [place] [address] Care Team Providers Care Groundskeeping Yardman Name Role Phone Wilfredo Marin MD Primary Care Provider [phone] [phone] Reason for Referral * Imaging (Routine) - Pending Review Specialty Diagnoses / Procedures Referred By Jordyn fuentes Referred To Contact Radiology Diagnoses Chest pain, unspecified type Coronary artery disease due to calcified coronary lesion Procedures CT Angio Heart w 3D Imaging/Function Meagan Alberto NP [address] [place] [address] Phone: tel: fax: [address] [address] Phone: tel: Referral ID Status Reason Start Date Expiration Date V isits Requested Visits Authorized [id number] Pending Review 05/06/2024 05/06/2025 1 1 Reason for Visit * Reason Comments Follow-up Encounter Details Date Type Department Care Team (Late st Contact Info) Description 05/06/2024 1:40 PM EST Office Visit [facility] - [address] [place] [phone] Meagan Alberto NP [address] [place] [address] Chest pain, unspecified type (Primary Dx); Coronary artery disease due to calcified coronary lesion; Hypertension, unspecified type Social History Tobacco Use Types Packs/Day Years [...] care for your loved ones. For example, residential child care counselor or elderly care for an older adult? [...] AM EST documented as of this encounter Last Filed Vital Signs Vital Sign Reading Time Taken Comments Blood Pressure 132/78 05/06/2024 1:40 PM EST Pulse 58 05/06/2024 1:40 PM EST Temperature - - Respiratory Rate - - Oxygen Saturation 97% 05/06/2024 1:40 PM EST Inhaled Oxygen Concentration - - Weight 82.6 kg (182 lb) 05/06/2024 1:40 PM EST Height 160 cm (5' 3 ) 05/06/2024 1:40 PM EST Body Mass Index 32.24 05/06/2024 1:40 PM EST documented in this encounter Progress Notes * Meagan Alberto, DEANA - 05/06/2024 1:40 PM ESTAssociated Problem(s): Hypertension Well-controlled during today's exam with a reading of 132/78. The patient brings with her a significant log of blood pressures which she has been taking 3 times a day for some time. The majority of these readings are less than 120/80 and favorable. She does have isolated blood pressures where her systolic is 150 likely in the setting of anxiety as she tends to be nervous taking her blood pressurein the evenings. I have made no changes to her antihypertensive medications. I did recommend she stop taking her blood pressure so frequently. I encouraged her to take her blood pressure 3 times a week approximately 2 hours after taking her morning medications after 5 minutes of relaxation, and sure to have an empty bladder, no caffeine and to have her legs flat on the floor. Educated on the importance of diet lifestyle to help further assist in reducing blood pressure. The patient was encouraged to follow low-salt low-fat diet, make purposeful strides towards weight loss, and engage in routine aerobic exercise as tolerated. * Meagan Alberto NP - 05/06/2024 1:40 PM ESTAssociated Problem(s): Chest pain She does continue to endorse episodes of left-sided chest discomfort with associated diaphoresis, nausea and shortness of breath. Subsequently, I have ordered a cardiac CT to further evaluate for anyareas of ischemia. Instructed to call 911 or go to the emergency room should the patient begin to experience chest pain or pressure lasting greater than 10 minutes does not resolve with rest. This time she will continue on aspirin and statin therapy. Orders: ECG [address] Angio Heart w 3D Imaging/Function; Future * Meagan Alberto NP - 05/06/2024 1:40 PM ESTAssociated Problem(s): Coronary artery disease due to calcified coronary lesion See care plan for chest pain. Orders: CT Angio Heart w 3D Imaging/Function; Future * Meagan Alberto NP - 05/06/2024 1:40 PM EST Images from the original note were not included. [facility] PRIMARY HEALTHCARE ADVISORY SERVICES MANAGER: Austin Juarez MD PCP: Wilfredo Marin MD HPI: Alis Sanchez is a 63 y.o. old female with past medical history of coronary artery disease, hypertension, palpitations, pericardial effusion, hyperlipidemia, type 2 diabetes, obesity, GERD, sarcoidosis, CKD, pleural effusion, pulmonary nodules status post lobectomy of left lower lung. Echocardiogram performed in January 2021. This revealed normal biventricular size and systolic function. Normal LV regional wall motion. LVEF 55 to 60%. Normal LV diastolic function. Normal PASP. No hemodynamically significant valvular disease. 24-hour Holter monitor in December 2022 in the setting of dizziness. This revealed the predominantrhythm was sinus rhythm with episodes of sinus bradycardia. Average ventricular heart rate 62 bpm.No sustained atrial or ventricular arrhythmias or pauses noted. January 2023 underwent stress testing at [facility] in the setting of chest discomfort. There was a small, mostly fixed mild perfusion defect in the anterior wall, from apex to base, with minimal reversibility in the basal anterior wall, with reduced thickening suggestive of mild infarct with minimal lissa-- infarct ischemia. She was last seen in our office in December 2023. At that time her dizziness had resolved after discontinuing her losartan. Unfortunately, the patient was seen in the emergency room for complaints of chest heaviness. April 01, 2024 the patient presented to [facility] emergency room with complaints of chestheaviness. Troponin was negative. Chest x-ray without any acute abnormalities. EKG nonischemic. He was noted to be mildly hypertensive with a systolic blood pressure of 150. It was felt that her chest discomfort was musculoskeletal in nature as it was able to be reproduced. She presents today accompanied by her for hospital follow-up. The patient does continue to endorse episodes of chest heaviness with associated breathlessness, nausea and diaphoresis. This is not necessarily associated with exertion. She did have a reassuring stress test as outlined above. She states compliance with her medications. She brings with her a copious amount of blood pressure readings which are all very favorable with isolated readings of greater than 150 systolic. ACTIVE MEDICATIONS: Outpatient Medications Marked as Taking for the 05/06/24 encounter (Office Visit) with Meagan Alberto NP Medication Sig Dispense Refill aspirin 81 mg EC tablet Take 1 tablet (81 mg total) by mouth 1 (one) time each day. DILT-XR 120 mg 24 hr capsule TAKE 1 CAPSULE BY MOUTH DAILY FOR 360 DAYS. 90 capsule 3 dulaglutide (Trulicity) 1.5 mg/0.5 mL pen injector injection Inject 0.5 mL (1.5 mg total) under theskin every 7 (seven) days. gabapentin (NEURONTIN) 300 mg capsule Take 1 capsule (300 mg total) by mouth if needed. losartan (Cozaar) 25 mg tablet Take 0.5 tablets (12.5 mg total) by mouth at bedtime. 15 each 2 metFORMIN XR (GLUCOPHAGE-XR) 500 mg 24 hr tablet Take 1 tablet (500 mg total) by mouth 1 (one) timeeach day. 90 tablet 0 morphine (MSIR) 15 mg tablet Take 1 tablet (15 mg total) by mouth every 4 (four) hours if needed for severe pain. mycophenolate (CELLCEPT) 500 mg tablet Take 1 tablet (500 mg total) by mouth 2 (two) times a day. pantoprazole (PROTONIX) 20 mg EC tablet Take 1 tablet (20 mg total) by mouth 1 (one) time each day if needed. Do not crush, chew, or split. simvastatin (ZOCOR) 40 mg tablet Take 1 tablet (40 mg total) by mouth at bedtime. PAST MEDICAL HISTORY: Patient Active Problem List Diagnosis Asthma Coronary artery disease due to calcified coronary lesion Diabetes mellitus (CMS/HCC) Diabetes mellitus with cataract (CMS/HCC) DM (diabetes mellitus), type 2 with renal complications (CMS/HCC) DM type 2 with diabetic peripheral neuropathy (CMS/HCC) Gastroesophageal reflux disease without esophagitis Hypertension Hyperlipidemia Pulmonary nodules/lesions, multiple S/P lobectomy of lung Arthralgia of multiple sites Chronic back pain CKD (chronic kidney disease) stage 2, GFR 60-89 ml/min Class 1 obesity Constipation Diarrhea Diverticulosis Epigastric pain Hair loss Liver cyst Liver lesion Liver mass Medial meniscus tear Muscle cramps Myalgia Other insomnia Palpitations Pericardial effusion Phlebitis and thrombophlebitis of other sites Pleural effusion Rotator cuff arthropathy of both shoulders Sarcoidosis Sciatica Trigger index finger of left hand Urolithiasis Vertigo Chest pain ALLERGIES: Allergies Allergen Reactions Flagyl [Metronidazole] Rash Penicillin Nausea And Vomiting Pregabalin Headache Glipizide Sulfa (Sulfonamide Antibiotics) Sitagliptin Rash and Other SOCIAL HISTORY: Social History Tobacco Use Smoking status: Former Current packs/day: 0.00 Average packs/day: 0.5 packs/day for 35.7 years (17.9 ttl pk-yrs) Types: Cigarettes Start date: 04/10/1974 Quit date: 12/31/2009 Years since quittin.3 Smokeless tobacco: Never Substance Use Topics Alcohol use: No PHYSICAL EXAM: Vitals: 05/06/24 1340 BP: 132/78 BP Location: Right arm Patient Position: Sitting BP Cuff Size: Adult Pulse: 58 SpO2: 97% Weight: 82.6 kg (182 lb) Height: 1.6 m (63 ) Physical Exam Vitals reviewed. Constitutional: General: She is not in acute distress. HENT: Head: Normocephalic. Eyes: Pupils: Pupils are equal, round, and reactive to light. Cardiovascular: Rate and Rhythm: Normal rate and regular rhythm. Pulses: Normal pulses. Heart sounds: No murmur heard. No friction rub. No gallop. Pulmonary: Effort: Pulmonary effort is normal. Breath sounds: No wheezing, rhonchi or rales. Abdominal: General: Abdomen is flat. There is no distension. Palpations: Abdomen is soft. Musculoskeletal: General: No swelling. Cervical back: Normal range of motion. Right lower leg: No edema. Left lower leg: No edema. Skin: General: Skin is warm and dry. Neurological: Mental Status: She is alert and oriented to person, place, and time. Mental status is at baseline. Psychiatric: Mood and Affect: Mood normal. Behavior: Behavior normal. EKG: No results found for this or any previous visit (from the past 4464 hour(s)). TESTING: ASSESSMENT/PLAN: Assessment & Plan Chest pain, unspecified type She does continue to endorse episodes of left-sided chest discomfort with associated diaphoresis, nausea and shortness of breath. Subsequently, I have ordered a cardiac CT to further evaluate for anyareas of ischemia. Instructed to call 911 or go to the emergency room should the patient begin to experience chest pain or pressure lasting greater than 10 minutes does not resolve with rest. This time she will continue on aspirin and statin therapy. Orders: ECG [address] Angio Heart w 3D Imaging/Function; Future Coronary artery disease due to calcified coronary lesion See care plan for chest pain. Orders: CT Angio Heart w 3D Imaging/Function; Future Hypertension, unspecified type Well-controlled during today's exam with a reading of 132/78. The patient brings with her a significant log of blood pressures which she has been taking 3 times a day for some time. The majority of these readings are less than 120/80 and favorable. She does have isolated blood pressures where her systolic is 150 likely in the setting of anxiety as she tends to be nervous taking her blood pressurein the evenings. I have made no changes to her antihypertensive medications. I did recommend she stop taking her blood pressure so frequently. I encouraged her to take her blood pressure 3 times a week approximately 2 hours after taking her morning medications after 5 minutes of relaxation, and sure to have an empty bladder, no caffeine and to have her legs flat on the floor. Educated on the importance of diet lifestyle to help further assist in reducing blood pressure. The patient was encouraged to follow low-salt low-fat diet, make purposeful strides towards weight loss, and engage in routine aerobic exercise as tolerated. Thank you for allowing us to participate in the care of this patient. The patient will follow up in4-5 months at same time as her Brent, sooner PRJohanny. As per AHA guidelines and previously established plan of care by Dr. Austin Juarez MD, we discussed the following today: 1. Chest pain, unspecified type 2. Coronary artery disease due to calcified coronary lesion 3. Hypertension, unspecified type [facility] Cosigned by Austin Juarez MD at 05/06/2024 5:43 PM EST documented in this encounter Plan of Treatment Upcoming Encounters Date Type Department Care Team (Late st Contact Info) Description 06/21/2024 11:00 AM EDT Office Visit Internal Medicine - [facility] [address] [place] [address] Wilfredo Marin MD [address] [place] [address] 09/06/2024 7:40 AM EDT Office Visit [facility] - [facility] [address] [facility] [address] [place] [phone] Meagan Alberto NP [address] [place] [phone] Scheduled Orders Name Type Priority Associated Diagnoses Orde r Schedule CT Angio Heart w 3D Imaging/Function Cardiac CT/MRI Routine Chest pain, unspecified type Coronary artery disease due to calcified coronary lesion Expected: 05/06/2024, Expires: 05/06/2025 documented as of this encounter Procedures Procedure Name Priority Date/Time Associated Diagnosis Comments ECG 12-LEAD Routine 05/06/2024 2:29 PM EST Chest pain, unspecified type documented in this encounter Results * ECG 12 lead (05/06/2024 2:29 PM EST) Ventricular Rate ECG 58 BPM GEMUSE Atrial Rate 58 BPM GEMUSE P-R Interval 130 ms GEMUSE QRS Duration 88 ms GEMUSE Q-T Interval 410 ms GEMUSE QTc 402 ms GEMUSE P Wave [place] 79 degrees GEMUSE R [place] 72 degrees GEMUSE T [place] 65 degrees GEMUSE ECG Interpretation Sinus bradycardia with sinus arrhythmia When compared with ECG of 12-JUN-2020 14:46, Premature atrial complexes are no longer Present Confirmed by MD Larry, [facility] ([id number]) on 05/07/2024 1:00:58 PM GEMUSE 05/06/2024 1:45 PM EST 05/07/2024 1:00 PM EST Meagan Alberto NP ECG ORDERABLES Edited Result - Final GEMUSE documented in this encounter Visit Diagnoses Diagnosis Chest pain, unspecified type- Primary Coronary artery disease due to calcified coronary lesion Hypertension, unspecified type documented in this encounter Care Teams Groundskeeping Yardman Relationship Specialty Start Date End Date Wilfredo Marin MD [address] [place] [address] PCP - General Internal Medicine 03/07/17 documented as of this encounter
--- OUTSIDE RECORDS SUMMARY | 2024-05-23 11:39 | XMS_ITS | Encounter Summary ---
Author Organization [employer] Address [address] [place] [address] Care Team Providers Care Briar Cutter Name Role Phone Wilfredo Marin MD Primary Care Provider [phone] [phone] Reason for Visit * Reason Onset Date Comments Testing 05/20/[address] A Encounter Details Date Type Department Care Team (Late st Contact Info) Description 05/20/2024 Telephone [facility] - [address] [place] [phone] Meagan Alberto, DEANA [address] [place] [phone] Testing (Auth Coronary CTA) Social History Tobacco Use Types Packs/Day Years [...] for your loved ones. For example, children's service supervisor or elderly care for an older adult? [...] as of this encounter Progress Notes * Keira Stephens - 05/20/2024 1:20 PM EST Insurance referral request faxed to PCP marked urgent for processing. Unsure of the turnaround timesince we have not been receiving referrals back from [facility]. Thanks, Yenni Nino * Neena Santana - 05/20/2024 12:38 PM EST Please get a [facility] Out of network auth/Specialist referral for a Coronary CTA ([id number]), Chest pain (R07.9), Coronary artery dz (I25.10, I25.84), @[facility] documented in this encounter Plan of Treatment Upcoming Encounters Date Type Department Care Team (Late st Contact Info) Description 06/21/2024 11:00 AM EDT Office Visit Internal Medicine - [address] [address] Wilfredo Marin MD [address] [place] [address] 09/06/2024 7:40 AM EDT Office Visit [facility] - [address] [place] [address] Meagan Alberto NP [address] [place] [address] documented as of this encounter Visit Diagnoses Not on filedocumented in this encounter Care Teams Briar Cutter Relationship Specialty Start Date End Date Wilfredo Marin MD [address] [place] [address] PCP - General Internal Medicine 03/07/17 documented as of this encounter
--- OUTSIDE RECORDS SUMMARY | 2024-05-23 11:39 | XMS_ITS | Encounter Summary ---
Author Organization [employer] Address [address] [place] [address] Care Team Providers Care Safety And Skill Based Pay Manager Name Role Phone Wilfredo Marin MD Primary Care Provider [phone] Reason for Referral * Imaging (Routine) - Pending Review Specialty Diagnoses / Procedures Referred By Jordyn fuentes Referred To Contact Radiology Diagnoses Fatty liver Diabetes 1.5, managed as type 2 (CMS/HCC) H/O acute myocardial infarction Procedures MR Abdomen wo and w Contrast Jaden Christensen PA [address] [address] Phone: tel: fax: [facility] [address] [place] [address] Phone: tel: Referral ID Status Reason Start Date Expiration Date V isits Requested Visits Authorized [id number] Pending Review 05/15/2024 05/15/2025 1 1 Reason for Visit * Reason Comments Fatty Liver * Consultation (Routine) - Authorized Specialty Diagnoses / Procedures Referred By Jordyn fuentes Referred To Contact Gastroenterology Diagnoses Fatty liver Wilfredo Marin MD [address] [place] [id number] Phone: tel: fax: Jaden Christensen PA [address] [place] [address] Phone: tel: fax: Referral ID Status Reason Start Date Expiration Date Visits Requested Visits Authorized [id number] Authorized Specialty Services Required 04/22/2024 04/22/2025 12 12 Encounter Details Date Type Department Care Team (Late st Contact Info) Description 05/15/2024 10:40 AM EST Office Visit Gastroenterology - [place] [address] [place] [id number] Jaden Christensen PA [address] [place] [address] Diabetes 1.5, managed as type 2 (CMS/HCC) (Primary Dx); Fatty liver; H/O acute myocardial infarction Social History Tobacco Use Types Packs/Day Years [...] care for your loved ones. 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 [...] Sign Reading Time Taken Comments Blood Pressure - - Pulse 71 05/15/2024 10:58 AM EST Temperature - - Respiratory Rate - - Oxygen Saturation 96% 05/15/2024 10:58 AM EST Inhaled Oxygen Concentration - - Weight 80.7 kg (178 lb) 05/15/2024 10:58 AM EST Height 160 cm (5' 3 ) 05/15/2024 10:58 AM EST Body Mass Index 31.53 05/15/2024 10:58 AM EST documented in this encounter Patient Instructions * Attachments The following attachments cannot be sent through Care Everywhere. * A1c (Palestinian) * Diabetes: Type 2 (Palestinian) * Diabetes: Type 2: General Info (Palestinian) * NAFLD: Nonalcoholic Fatty Liver Disease (Palestinian) * Coronary Artery Disease (Palestinian) documented in this encounter Progress Notes * LYNN Richey - 05/15/2024 10:40 AM EST Patient seen for ongoing fatty liver. Patient recently had an US in apr which revealed a fatty liver with question of cirrhosis which is a concern for a fatty liver. Patient to perform an MRI and labs and we will b e in touch with results. Patient is aware that her diabetes does contribute to the fatty liver and in either case whether she has fatty liver or cirrhosis, we will continue to monitor her liver every 6 months * LYNN Richey - 05/15/2024 10:40 AM EST DENTIFIER: Ju Walton is a 63 y.o. old female who presents to the gastroenterology department today for re-evaluation of the liver and question of changes in her liver. HPI: 63-year-old female seen for ongoing fatty liver. Patient is accompanied by her adult daughter. Patient had been seen in the past-2022 for fatty liver. Patient recently had an US in apr which revealed a fatty liver with question of cirrhosis which is a concern for a fatty liver. Patient to perform an MRI and labs and we will b e in touch with results. Patient is aware that her diabetes does contribute to the fatty liver and in either case whether she has fatty liver or cirrhosis, we will continue to monitor her liver every 6 months ROS: GENERAL: No malaise, significant weight loss or fever HEENT: No changes in hearing or vision, nose bleeds or swallowing problems NECK: No lumps, goiter, pain or significant neck swelling RESPIRATORY: No cough, wheezing or shortness of breath CARDIOVASCULAR: No chest pain, leg swelling or palpitations GI: Positive for fatty liver versus cirrhosis, changes in bowel habits MUSCULOSKELETAL: No joint pain or swelling, back pain, or muscle pain. SKIN: No lesions, rash or itching The remainder of the review of systems is reviewed and negative. PAST MEDICAL HISTORY: Patient Active Problem List Diagnosis Date Noted Chest pain 05/03/2024 Asthma 04/22/2024 Diabetes mellitus (CMS/HCC) 04/22/2024 Class 1 obesity 04/22/2024 Constipation 04/22/2024 Diarrhea 04/22/2024 Diverticulosis 04/22/2024 Epigastric pain 04/22/2024 Liver cyst 04/22/2024 Liver lesion 04/22/2024 Sciatica 04/22/2024 Coronary artery disease due to calcified coronary lesion 04/20/2023 Palpitations 04/20/2023 Pleural effusion 03/29/2022 Pericardial effusion 03/19/2021 Gastroesophageal reflux disease without esophagitis 10/08/2020 Pulmonary nodules/lesions, multiple 10/08/2020 Arthralgia of multiple sites 10/08/2020 Hair loss 10/08/2020 Muscle cramps 10/08/2020 Myalgia 10/08/2020 Other insomnia 10/08/2020 Rotator cuff arthropathy of both shoulders 10/08/2020 Trigger index finger of left hand 10/08/2020 Sarcoidosis 09/30/2020 Liver mass 06/16/2020 S/P lobectomy of lung 01/07/2020 Hypertension 11/04/2019 Diabetes mellitus with cataract ([facility]) 11/08/2018 Medial meniscus tear 05/21/2017 DM type 2 with diabetic peripheral neuropathy ([facility]) 12/30/2013 CKD (chronic kidney disease) stage 2, GFR 60-89 ml/min 12/30/2013 Urolithiasis 06/13/2013 Vertigo 12/21/2011 Hyperlipidemia 06/27/2006 Phlebitis and thrombophlebitis of other sites 01/09/2006 DM (diabetes mellitus), type 2 with renal complications ([facility]) 05/27/2005 Chronic back pain 05/27/2005 SOCIAL HISTORY: Social History Tobacco Use Smoking status: Former Current packs/day: 0.00 Average packs/day: 0.5 packs/day for 35.7 years (17.9 ttl pk-yrs) Types: Cigarettes Start date: 04/10/1974 Quit date: 12/31/2009 Years since quittin.3 Smokeless tobacco: Never Substance Use Topics Alcohol use: No FAMILY HISTORY: Family History Problem Relation Name Age of Onset Heart attack Mother Diabetes Mother No Known Problems Father Diabetes Sister Diabetes Brother Hi ( twin) 2014 Heart failure Brother Cataracts Brother Diabetes Brother Maxi Twin 2015 Eczema Brother No Known Problems Daughter Pancreatic cancer Maternal Grandmother No Known Problems Maternal Grandfather No Known Problems Paternal Grandmother No Known Problems Paternal Grandfather Breast cancer Aunt maternal 58 maternal Aunt; bilateral Cataracts Uncle maternal uncle Glaucoma Uncle maternal uncle Blindness Other blind in one eye Strabismus Other daughter Stroke Other Mat cousin Macular degeneration Neg Hx ACTIVE MEDICATIONS: No outpatient medications have been marked as taking for the 05/15/24 encounter (Office Visit) with LYNN Richey. ALLERGIES: @ALL@ PHYSICAL EXAM: Visit Vitals Pulse 71 Ht 1.6 m (63 ) Wt 80.7 kg (178 lb) SpO2 96% BMI 31.53 kg/m?? OB Status Postmenopausal Smoking Status Former BSA 1.84 m?? APPEARANCE: Alert and in no acute distress EYES: PERRLA, conjunctiva and sclera normal. MOUTH/THROAT: no erythema or exudates NECK: Neck supple, no adenopathy HEART: RRR with normal S1 and S2, no murmurs appreciated LUNG: clear to auscultation LYMPH NODES: grossly normal ABDOMEN: Soft, nontender, normal active bowel sound throughout, no organomegaly RECTAL: Exam deferred. EXTREMITIES: Extremities warm and well perfused SKIN: Skin color, texture, turgor normal. LABS: Lab Results Component Value Date WBC 6.1 02/12/2024 HGB 13.2 02/12/2024 HCT 40.5 02/12/2024 MCV 83.7 02/12/2024 PLT 251 02/12/2024 NA 139 05/01/2024 NA 139 02/12/2024 K 4.1 05/01/2024 K 4.4 02/12/2024 CL 106 05/01/2024 CL 105 02/12/2024 CO2 30 05/01/2024 CO2 28 02/12/2024 GLUCOSE 125 (H) 05/01/2024 GLUCOSE 116 (H) 02/12/2024 BUN 18 05/01/2024 BUN 18 02/12/2024 CREATININE 0.79 05/01/2024 CREATININE 0.80 02/12/2024 CALCIUM 8.8 05/01/2024 CALCIUM 9.9 02/12/2024 PROT 6.9 05/01/2024 ALBUMIN 3.6 05/01/2024 BILITOT 0.4 05/01/2024 AST 12 05/01/2024 ALT 18 05/01/2024 ALKPHOS 71 05/01/2024 EGFR 83 05/01/2024 EGFR 82 02/12/2024 No results found for: SEDRATE , CRP , IRON , FERRITIN , CDIFFTOX , HPYLORI , STOOLCX , LIPASE , APTT , PT , INR , CELIAC , TTGIGA , GLIADINIGA , OCCULTBLD , CALPROTECTIN IMAGING: US Abdomen Limited Narrative: EXAM: US ABDOMEN LIMITED TECHNIQUE: US Abdominal limited right upper quadrant. HISTORY: liver cyst vs fatty liver COMPARISON: Ultrasound on April 11, 2023. Abdomen MRI on June 26, 2020. FINDINGS: Pancreas: No focal lesions identified. Mild dilatation of the main pancreatic duct up to 0.5 cm at the level of the body, similar to prior study from 2020. Liver: Liver length of 16.2 cm. Coarsened echotexture.No focal lesions appreciated on today's examination. Previously suggested apparent echogenic lesion in the left hepatic lobe may had been an artifact from the fat surrounding the falciform ligament. Main Portal Vein: Patent with normal direction of flow. Gallbladder: No gallstones or gallbladder wall thickening. Biliary: No biliary ductal dilatation. The common bile duct measures 0.6 cm. Right Kidney: Size: 13.6 cm. No renal stones or hydronephrosis. Upper AORTA and IVC: Visualized upper portions of aorta and inferior vena cava are unremarkable. Impression: 1. Similar coarsened echotexture of the liver parenchyma, which may reflect nonspecifichepatocellular disease. 2. No focal hepatic lesions demonstrated on today's examination. Previously suggested left hepatic echogenic lesion could have been artifactual from the fat surrounding the falciform ligament. -------- FINAL REPORT -------- Dictated By: Holger Souza Dictated Date: 05/08/2024 15:01 ET Assigned Physician: Holger Souza Reviewed and Electronically Signed By: Holger Souza Signed Date: 05/08/2024 15:46 ET Workstation ID: [id number] Transcribed By: Self Edit Transcribed Date: 05/08/2024 15:[address] Results for orders placed in visit on 08/21/19 CT CHEST W [facility] Diagnostic Imaging Department [address] [place] [id number] Patient: JU WALTON /Age/Sex: 1960 - 59 - F Unit#: [id number] Location/Status: SPDICAT/REG CLI Mnemonic/Ordering Site: CTCHESTW/SPCT Ordering Physician: WALTER MCADAMS MD CT Chest W - 08/21/19 - INDICATION: HX LUNG MASS TECHNIQUE: CT scan of the chest was obtained with the administration of 90cc Isovue 370 intravenous contrast media. Multiplanar reformatted images were obtained. Scanner: [id number] Dose reduction technique: ASIR (Adaptive statistical iterative reconstruction) and/or AEC (automated exposure control) Dose: total exam DLP 219.03 mGy-cm COMPARISON: CT scan of the chest dated 01/08/2016. FINDINGS: CHEST WALL: No focal abnormality is noted. LOWER NECK: The visualized portions of the thyroid gland are unremarkable. No lower cervical lymphadenopathy is identified. LYMPH NODES: No axillary, mediastinal or hilar lymphadenopathy is identified. MEDIASTINUM: No mediastinal mass is noted. The heart size is within normal limits. No pericardial effusion. No aneurysmal dilatation of the thoracic aorta is seen. There is atherosclerotic calcification of the coronaries and thoracic aorta. LUNGS/AIRWAYS: Mild to moderate emphysematous disease. Interval enlargement of left lower lobe lung mass with irregular margins measuring 2 x 1.4 cm, previously measuring approximately 1 cm. Postsurgical changes of wedge resection within the superior segment of the left lower lobe. The trachea and central bronchi are widely patent. No pneumothorax. No pleural effusion. UPPER ABDOMEN: The visualized portions of the upper abdomen are otherwise grossly unremarkable. OSSEOUS STRUCTURES: No suspicious osseous lesions are identified. There are degenerative changes of the thoracic spine. Impression Interval enlargement of irregularly marginated left lower lobe nodule measuring up to 2 cm. Code: 87271, G9637, G9557, G9551 Dictating Physician: ANJEL LÓPEZ MD Electronically Signed by: ANJEL LÓPEZ MD Dic Date/Time: 08/21/19 1103 Sign date/Time: 08/21/19 1113 US Results for orders placed during the hospital encounter of 05/08/24 US Abdomen Limited Narrative EXAM: US ABDOMEN LIMITED TECHNIQUE: US Abdominal limited right upper quadrant. HISTORY: liver cyst vs fatty liver COMPARISON: Ultrasound on April 11, 2023. Abdomen MRI on June 26, 2020. FINDINGS: Pancreas: No focal lesions identified. Mild dilatation of the main pancreatic duct up to 0.5 cm at the level of the body, similar to prior study from 2020. Liver: Liver length of 16.2 cm. Coarsened echotexture.No focal lesions appreciated on today's examination. Previously suggested apparent echogenic lesion in the left hepatic lobe may had been an artifact from the fat surrounding the falciform ligament. Main Portal Vein: Patent with normal direction of flow. Gallbladder: No gallstones or gallbladder wall thickening. Biliary: No biliary ductal dilatation. The common bile duct measures 0.6 cm. Right Kidney: Size: 13.6 cm. No renal stones or hydronephrosis. Upper AORTA and IVC: Visualized upper portions of aorta and inferior vena cava are unremarkable. Impression 1. Similar coarsened echotexture of the liver parenchyma, which may reflect nonspecific hepatocellular disease. 2. No focal hepatic lesions demonstrated on today's examination. Previously suggested left hepatic echogenic lesion could have been artifactual from the fat surrounding the falciform ligament. -------- FINAL REPORT -------- Dictated By: Holger Souza Dictated Date: 05/08/2024 15:01 ET Assigned Physician: Holger Souza Reviewed and Electronically Signed By: Holger Souza Signed Date: 05/08/2024 15:46 ET Workstation ID: [id number] Transcribed By: Self Edit Transcribed Date: 05/08/2024 15:40 ET IMPRESSION: 1. Diabetes 1.5, managed as type 2 (CMS/HCC) 2. Fatty liver 3. H/O acute myocardial infarction PLAN: 1. Fatty liver, diabetes, history of an silent AZ last year Patient states that she had been informed that she did have a silent AZ last year and will continueto follow-up with cardiology as scheduled. Fatty liver-patient has been seen in the past for fatty liver and has recently undergone an ultrasound in April that showed fatty liver with question of changes consistent with cirrhosis. Have suggested that we order MRI as well as labs to discern about the extent of fibrosis and we will be in touch with her in regards to results. Diabetes-patient is aware that the diabetes also can contribute to the fatty liver so that we will never totally be resolved however she is aware that we will continue to monitor her liver every 6 months. It is noted that her cholesterol is good and that is not contributing to her fatty liver. We will continue to be in touch with her in regards to results Total time of today's encounter is 33 minutes in preparing to see the patient, reviewing labs, diagnostic studies as well as other provider notes, documenting in charting, creating an HPI, performinga medically appropriate exam, counseling patient at length in regards to fatty liver, changes within the liver, diabetes affecting the liver and labs as well as MRI to be performed . There was documen tation in EMR after visit. None of which time was spent performing separately billable procedures or ancillary services. Much appreciation for allowing us to participate in patient's care Orders Placed This Encounter Procedures MR Abdomen wo and w Contrast CBC and differential Comprehensive metabolic panel PRETTY fibrotest liver diease ADDITIONAL ORDERS: AMB REFERRAL TO GASTROENTEROLOGY MR ABDOMEN WO AND W CONTRAST LYNN Richey documented in this encounter Plan of Treatment Upcoming Encounters Date Type Department Care Team (Late st Contact Info) Description 06/21/2024 11:00 AM EDT [facility] [address] [place] [phone] Wilfredo Marin MD [address] [place] [id number] 09/06/2024 7:40 AM EDT Office Visit [facility] [address] [place] [phone] Meagan Alberto, DEANA [address] [place] [address] Pending Results Name Type Priority Associated Diagnoses Date /Time PRETTY fibrotest liver diease Lab Routine Fatty liver Diabetes 1.5, managed as type 2 (CMS/HCC) H/O acute myocardial infarction 05/15/2024 11:18 AM EST Scheduled Orders Name Type Priority Associated Diagnoses Orde r Schedule MR Abdomen wo and w Contrast Imaging Routine Fatty liver Diabetes 1.5, managed as type 2 (CMS/HCC) H/O acute myocardial infarction Expected: 05/15/2024, Expires: 05/15/2025 PRETTY fibrotest liver diease Lab Routine Fatty liver Diabetes 1.5, managed as type 2 (CMS/HCC) H/O acute myocardial infarction Expected: 05/15/2024, Expires: 05/15/2025 documented as of this encounter Results * Comprehensive metabolic panel (05/15/2024 11:18 AM EST) Sodium 138 133 - 145 mmol/L LAB CHEMISTRY METHOD 05/15/2024 6:31 PM [facility] Potassium 4.3 3.5 - 5.5 mmol/L LAB CHEMISTRY METHOD 05/15/2024 6:31 PM [facility] Chloride 105 96 - 110 mmol/L LAB CHEMISTRY METHOD 05/15/2024 6:31 PM [facility] CO2 30 21 - 32 mmol/L LAB CHEMISTRY METHOD 05/15/2024 6:31 PM [facility] Anion Gap 3 3 - 11 LAB CHEMISTRY METHOD 05/15/2024 6:31 PM [facility] Glucose 89 70 - 100 mg/dL LAB CHEMISTRY METHOD 05/15/2024 6:31 PM [facility] BUN 20 5 - 25 mg/dL LAB CHEMISTRY METHOD 05/15/2024 6:31 PM [facility] Creatinine 0.81 0.50 - 1.10 mg/dL LAB CHEMISTRY METHOD 05/15/2024 6:31 PM [facility] eGFR 81 >=60 mL/min/1. 73m2 LAB CHEMISTRY METHOD 05/15/2024 6:31 PM [facility] Comment:Calculation based on the??Chronic Kidney Disease Epidemiology Collaboration (CKD-EPI) equation refit??without adjustment for race. BUN/Creatinine Ratio 24.7 LAB CHEMISTRY METHOD 05/15/2024 6:31 PM [facility] Calcium 9.8 8.5 - 10.5 mg/dL LAB CHEMISTRY METHOD 05/15/2024 6:31 PM [facility] AST (SGOT) 11 10 - 42 unit/L LAB CHEMISTRY METHOD 05/15/2024 6:31 PM [facility] ALT (SGPT) 19 10 - 60 unit/L LAB CHEMISTRY METHOD 05/15/2024 6:31 PM [facility] Alkaline Phosphatase 71 42 - 121 unit/L LAB CHEMISTRY METHOD 05/15/2024 6:31 PM [facility] Total Protein 7.2 6.0 - 8.0 g/dL LAB CHEMISTRY METHOD 05/15/2024 6:31 PM [facility] Albumin 3.8 3.2 - 5.0 g/dL LAB CHEMISTRY METHOD 05/15/2024 6:31 PM [facility] Total Bilirubin 0.4 0.0 - 1.4 mg/dL LAB CHEMISTRY METHOD 05/15/2024 6:31 PM [facility] Blood Venous blood specimen / Unknown Venipuncture / Unknown 05/15/2024 11:18 AM EST 05/15/2024 11:18 AM EST us Jaden BAILEY LAB BLOOD ORDERABLES Final Resu lt [facility] [address] [place] [address], [place] [phone] documented in this encounter Visit Diagnoses Diagnosis Diabetes 1.5, managed as type 2 (CMS/HCC)- Primary Fatty liver Other chronic nonalcoholic liver disease H/O acute myocardial infarction documented in this encounter Orders Outpatient Referral Count Last Ordered Date Fir st Ordered Date AMB REFERRAL TO GASTROENTEROLOGY 1 05/15/19 25 documented in this encounter Care Teams Safety And Skill Based Pay Manager Relationship Specialty Start Date End Date Wilfredo Marin MD [address] [place] [id number] PCP - General Internal Medicine 03/07/17 documented as of this encounter
--- OUTSIDE RECORDS SUMMARY | 2024-05-23 11:39 | XMS_ITS | Clinical Summary ---
Author Organization [facility] Address [address] [place] [address] Care Team Providers Care Learning And Development Administrator Name Role Phone Wilfredo Marin MD Primary Care Provider [phone] Allergies Active Allergy Reactions Criticality Noted Date Comments Metronidazole 03/02/2019 Glipizide 03/02/2019 Sitagliptin 03/02/2019 Pregabalin 03/02/2019 Penicillins 03/02/2019 Sulfa Antibiotics 03/02/2019 Medications Medication Sig Dispensed Refills Start Date End Date Status Albuterol Sulfate 108 (90 Base) MCG/ACT AEPB Inhale 2 puffs into the lungs every 6 (six) hours as needed. 0 Active losartan (COZAAR) 100 MG tablet Take 100 mg by mouth daily. 0 Active Dulaglutide (TRULICITY) 0.75 MG/0.5ML SOPN Inject 0.75 mg under the skin once a week. 0 Active simvastatin (ZOCOR) tablet 20 mg Take 20 mg by mouth every night at bedtime. 0 Active metFORMIN (GLUCOPHAGE) tablet 1000 mg Take 1,000 mg by mouth 2 (two) times a day with meals. 0 Active vitamin D3 (VITAMIN D3) 25 MCG (1000 UT) tablet Take 1,000 Units by mouth daily. 0 Active aspirin 325 MG tablet Take 325 mg by mouth daily. 0 Active oxyCODONE (ROXICODONE) 5 MG immediate release tablet Take 1 tablet (5 mg total) by mouth every 4 (four) hours as needed for pain. 16 tablet 0 03/02/2019 Active gabapentin (NEURONTIN) 300 MG capsule Take 300 mg by mouth 3 (three) times a day. 0 Active Active Problems Problem Noted Date Diagnosed Date Liver mass 09/30/2020 Sarcoidosis 09/30/2020 Family History Medical History Relation Name Comments Heart failure Brother No Sig Med Hx Father Cancer Maternal Aunt Cancer Maternal Grandmother Diabetes Mother Heart failure Mother Relation Name Status Comments Brother Father Maternal Aunt Maternal Grandmother Mother Social History Tobacco Use Types Packs/Day Years Used Date Smoking Tobacco: Former Cigarettes Q uit: 2016 Smokeless Tobacco: Never Alcohol Use Standard Drinks/Week Comments Never 0 (1 standard drink = 0.6 oz pur e alcohol) Sex and Gender Information Value Date Recorded Sex Assigned at Female 03/02/2019 3:21 PM EST Gender Identity Not on file Sexual Orientation Not on file Last Filed Vital Signs Vital Sign Reading Time Taken Comments Blood Pressure 144/71 09/30/2020 11:53 AM EDT Pulse 58 09/30/2020 11:53 AM EDT Temperature 36.3 ??C (97.4 ??F) 09/30/2020 11:53 AM E DT Respiratory Rate 16 03/02/2019 5:47 PM EST Oxygen Saturation 99% 09/30/2020 11:53 AM EDT Inhaled Oxygen Concentration - - Weight 92.6 kg (204 lb 3.2 oz) 09/30/2020 11:53 AM EDT Height 160 cm (5' 3 ) 09/30/2020 11:53 AM EDT Body Mass Index 36.17 09/30/2020 11:53 AM EDT Plan of Treatment Health Maintenance Due Date Last Done Comments Hepatitis C Screening 1960 Depression Screening 1970 BMI Counseling 1976 Preventative Health Evaluation 1976 Cervical Cancer Screening (Pap Smear) 1979 Colon Cancer Screening (Colonoscopy) 2003 Breast Cancer Screening (Mammogram) 2008 Shingrix-Zoster Vaccine (1 of 2) 2008 Pneumococcal Vaccine (2 of 2 - PCV) 12/04/2014 12/04/2013 Pneumococcal Vaccine (2 of 2 - PCV) 12/04/2014 12/04/2013 DTap / Tdap / Td (2 - Td or Tdap) 05/20/2019 05/20/2009 Fall Risk Assessment 2023 Osteoporosis Screening (DEXA Scan) 2023 COVID-19 Vaccine ( - 2023- season) 2023 06/28/2020 Influenza Vaccine (#1) 2023 0, 02/20/2019, 01/19/2018, Additional history exists RSV Adult > 60+ Yrs or (1 - 1-dose 75+ series) 2033 Hepatitis B Vaccines Aged Out No long er eligible based on patient's age to complete this topic RSV Ped < 20 months Aged Out No longe r eligible based on patient's age to complete this topic Care Teams Learning And Development Administrator Relationship Specialty Start Date End Date Wilfredo Marin MD [address] [place] [id number] PCP - General Internal Medicine 03/02/19
--- OUTSIDE RECORDS SUMMARY | 2024-05-23 11:39 | XMS_ITS | Encounter Summary ---
Author Organization [employer] Address [address] [place] [address] Care Team Providers Care Retail Specialist Name Role Phone Wilfredo Marin MD Primary Care Provider [phone] Reason for Referral * Consultation (Routine) - Authorized Specialty Diagnoses / Procedures Referred By Jordyn fuentes Referred To Contact Cardiology Diagnoses Disease of cardiovascular system Wilfredo Marin MD [address] [place] [address] Phone: tel: fax: [facility] - [facility] [address] [facility] [address] [place] [address] Phone: tel: fax: Referral ID Status Reason Start Date Expiration Date Visits Requested Visits Authorized [id number] Authorized Specialty Services Required 04/26/2024 04/26/2025 1 1 Reason for Visit * Reason Onset Date Comments Referral 04/25/2024 Encounter Details Date Type Department Care Team ([facility] st Contact Info) Description 04/25/2024 Telephone Internal Medicine - [address] [address] Wilfredo Marin MD [address] [place] [address] [place] [address] Referral Social History Tobacco Use Types Packs/Day [...] for your loved ones. 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 [...] as of this encounter Progress Notes * Yvonne Estevez MA - 04/26/2024 2:07 PM EST Pt aware * Wilfredo Marin MD - 04/26/2024 5:39 AM EST Referral to cardiology signed * Mary Martinez MA - 04/25/2024 3:32 PM EST Referral to cardiology pending. * Rosetta Veras - 04/25/2024 3:26 PM EST Referral Request: What insurance does the patient have today? [facility] Referrals cannot be processed if the insurance is not accurate. If the insurance listed above in red is NO BILLING INFORMATION FOUND FOR THIS ENCOUTNER The patients correct insurance must be obtained and registered in [facility] or their referral can not be processed. Is this a retro request? no. If yes for what date of service do you need the retro referral? not applicable Who is calling to request this referral? faxed If the caller is not the patient, what is their name? not applicable Ask the patient WHO referred them to this specialty: Not an initial visit; it is for follow up/continuation of care. Patients PCP is Dr. Thompson FIRST and LAST NAME of SPECIALIST PATIENT is seeing: fax requesting [facility] npi be used [phone] What specialty is this? cardio DIAGNOSIS Patient is being seen for (Not a body part or a procedure): i25.10 Have you seen this SPECIALIST for this PROBLEM/DX before? If YES, when? Yes. Have you checked REVIEW or the APPT DESK to see if this referral has already been done or has visits left? yes Is this visit: Follow Up Phone # of Specialist: [phone] Fax #: (if applicable): [phone] Does patient have an appointment scheduled?: yes Date of appointment- (including a retro-request): 05/06/24 Is this appointment related to: Not MVA, worker compensation, or surgery related documented in this encounter Plan of Treatment Upcoming Encounters Date Type Department Care Team (Late st Contact Info) Description 06/21/2024 11:00 AM EDT Office Visit Internal Medicine - [address] [address] Wilfredo Marin MD [address] [place] [address] 09/06/2024 7:40 AM EDT Office Visit [facility] - [facility] [address] [facility] [address] [place] [phone] Meagan Alberto NP [address] [facility] [address] [place] [address] Scheduled Referrals Name Type Priority Associated Diagnoses Orde r Schedule Ambulatory referral to Cardiology Outpatient Referral Routine Disease of cardiovascular system 1 Occurrences starting 04/26/2024 until 04/25/2025 documented as of this encounter Visit Diagnoses Diagnosis Disease of cardiovascular system- Primary Unspecified cardiovascular disease documented in this encounter Care Teams Retail Specialist Relationship Specialty Start Date End Date Wilfredo Marin MD [address] [place] [address] PCP - General Internal Medicine 03/07/17 documented as of this encounter
--- OUTSIDE RECORDS SUMMARY | 2024-05-23 11:39 | XMS_ITS | Data Portability ---
Author Organization [facility], [address] Address [address] [place] [address] Assessment No assessment recorded. Plan of Treatment Reminders Order Date Submit Date Provider Last Modified By Organization Details Last Modified Time Details Appointments None recorded. Lab rapid SARS CoV 2 Ag, QL IA, respiratory specimen 2022 023 fijaz3 [address] [address], [address] [place], [address], 10:28:22 rapid flu (A+B) 2022 023 fijaz3 [address] [address], [address] [place], [address], 10:28:22 Referral emergency medicine referral - Sinus bradycardia , right sided chest pain , congestion, EKG seem normal. history of pericarditi s. Need further evaluation and treatment. 2022 023 acardinal 3 [facility] Emergency Department, [address] [place], [address], 10:29:47 Procedures None recorded. Surgeries None recorded. Imaging electrocard iogram 2022 023 acardinal 3 [address] [address], [address] [place], [address], 10:29:47 Medication Orders None recorded. Patient TargetsNo targets recorded. Patient Instructions Encounter Date Encounter Id Patient Instructions Last Modified By Organization Details Last Modified Time 06/12/2022 [id number] If you test positive for COVID-19, stay home for at least 5 days and isolate from others in your home. You are likely most infectious during these first 5 days. Wear a high-quality mask if you must be around others at home and in public. Do not go places where you are unable to wear a mask. For travel guidance, see [facility]? s Travel webpage. Do not travel. Stay home and separate from others as much as possible. Use a separate bathroom, if possible. Take steps to improve ventilation at home, if possible. Don? t share personal household items, like cups, towels, and utensils. Monitor your symptoms. If you have an emergency warning sign (like trouble breathing), seek emergency medical care immediately. If you had symptoms and: Your symptoms are improving You may end isolation after day 5 if: You are fever-free for 24 hours (without the use of fever-reducing medication). Your symptoms are not improving Continue to isolate until: You are fever-free for 24 hours (without the use of fever-reducing medication). Your symptoms are improving. Regardless of when you end isolation Until at least day 11: Avoid being around people who are more likely to get very sick from COVID-19. Remember to wear a high-quality mask when indoors around others at home and in public. Do not go places where you are unable to wear a mask until you are able to discontinue masking (see below). For travel guidance, see [facility]? s Travel webpage. Not available 06/12/2022 10:28:06 If you have any kind of chest discomfort, even if it is difficult to describe (sometimes it can feel like bloating or nausea), and especially if the pain radiates down either arm, to the back, or up your neck or if it is associated with sweating, trouble breathing, dizziness, or nausea/vomiting, please go directly to the Emergency Room (ER) to be checked out. The ER is the only place that can completely rule out a heart attack or blood clot in your lungs. A normal-appearing EKG DOES NOT rule out a heart attack. Not available 06/12/2022 09:57:29 Reason for Referral Emergency Medicine Referral for Chest pain Sinus bradycardia, right sided chest pain , congestion, EKG seem normal. history of pericarditis. Ne Sinus bradycardia, right sided chest pain , congestion, EKG seem normal. history of pericarditis. Need further evaluation and treatment. Referring Physician: Nico Mcarthur, Urgent Care, Encounter Date: 06/12/2022 Results Created Date Observation Date Name Description Value Unit Range Abnormal Flag Note LastModifiedBy Organization Detail LastModifiedTime 06/13/19 23 06/12/2022 rapid flu (A+B) Unknown Analyte Normal = Negati ve Not Available [address] [place], [address], 06/12/2022 10:16:29 06/13/19 23 06/12/2022 rapid flu (A+B) Unknown Analyte negati ve Not Available [address] [place], [address], 06/12/2022 10:16:29 06/13/19 23 06/12/2022 rapid flu (A+B) Unknown Analyte Normal = Negati ve Not Available [address] [place], [address], 06/12/2022 10:16:29 06/13/19 23 06/12/2022 rapid flu (A+B) Unknown Analyte negati ve Not Available [address] [place], [address], 06/12/2022 10:16:29 06/13/19 23 06/12/2022 rapid SARS CoV 2 Ag, QL IA, respi rator y speci men Unknown Analyte Normal =Negat madhuri Not Available [address] [place], [address], 06/12/2022 10:16:23 06/13/19 23 06/12/2022 rapid SARS CoV 2 Ag, QL IA, respi rator y speci men Unknown Analyte negati ve Not Available [id number] [place], [address], 06/12/2022 10:16:23 06/13/1906/12/2022 juan medrano am No observ ation record ed. [facility] [address] [place], [address], 06/12/2022 11:17:27 Result Notes None recorded. Problems Name Problem SNOMED Code Status Onset Date Resolution Date Notes Provider Name and Address Organization Details Recorded Time Hyperlipidemia 49630769 Active Cody Toya null, PA - [facility] 09:46:21 Diabetes mellitus 85970929 Active Cody Toya null, PA - [facility] 09:46:30 Asthma 702938827 Active Cody Toya null, PA - [facility] 09:46:48 Sciatica 23744043 Active Cody Toya null, PA - [facility] 09:47:15 Problem Notes None recorded. Procedures Surgical History Date Name Laterality Status Provider Name and Address Organization Details Recorded Time 0 lung excision completed Cody Pittman PA - [facility] 06/12/2022 09:48:30 Imaging Results Imaging Date Name Status LastModified by Organization Details LastModified Time 06/12/2022 electrocardiogram completed [facility] [address] [place], [address], 06/12/2022 11:17:27 Procedure Notes None recorded. Medical Equipment None Reported. Allergies Allergen ID Allergen Name Allergen Category Reaction Reaction Severity Criticality Documentation Date Start Date Code Code System Note Provider Name and Address Organization Details Recorded Time 093809 Flagyl medicatio n Not available Not available Not available 06/12/2022 6 RxNorm Cody Toya null, PA - [facility] 3 09:45:00 926719 Product containin g penicilli n and antibioti c (product) medicatio n Not available Not available Not available 06/12/2022 86348 05 SNOMED LYNN Lang - [facility] 3 09:45:10 Medications Name Sig Start Date Stop Date Status Note LastModified by Organization Details LastModified Time prednisone 10 mg tablet TAKE 1 TABLET BY MOUTH TWICE A DAY 06/12 completed Not Available Not Available Not Available gabapentin 600 mg tablet TAKE 1 TABLET TWICE A DAY AND 2 TABS 1-2 HOURS BEFORE BEDTIME active Not Available Not Available No t Available loperamide 2 mg capsule TAKE 1 CAPSULE BY MOUTH 4 TIMES DAILY NEEDED FOR DIARRHEA. active Not Available Not Available No t Available cefpodoxime 200 mg tablet TAKE 1 TABLET BY MOUTH 2 TIMES A DAY FOR 10 DAYS MUST ADMINISTE R WITH A MEAL/FOOD active Not Available Not Available No t Available azithromyci n 250 mg tablet TAKE 2 TABLETS BY MOUTH TODAY, THEN TAKE 1 TABLET DAILY FOR 4 DAYS active Not Available Not Available No t Available hydrocodone 5 mg-acetamin ophen 325 mg tablet TAKE 1 TO 2 TABLETS BY MOUTH EVERY 4 TO 6 HOURS NEEDED FOR PAIN active Not Available Not Available No t Available ondansetron HCl 4 mg tablet TAKE 1 TABLET BY MOUTH EVERY 8 HOURS NEEDED FOR NAUSEA FOR UP TO 7 DAYS. 06/12 completed Not Available Not Available Not Available levofloxaci n 250 mg tablet TAKE 1 TABLET BY MOUTH EVERY DAY active Not Available Not Available No t Available omeprazole 40 mg capsule,del ayed release TAKE 1 CAPSULE BY MOUTH DAILY EVERY MORNING ON EMPTY STOMACH 30 MINS BEFORE BREAKFAST active Not Available Not Available No t Available doxycycline monohydrate 100 mg tablet TAKE 1 TABLET BY MOUTH TWICE A DAY FOR 14 DAYS active Not Available Not Available No t Available simvastatin 40 mg tablet TAKE 1 TABLET BY MOUTH EVERYDAY AT BEDTIME active Not Available Not Available No t Available baclofen 20 mg tablet TAKE 1 TABLET BY MOUTH TWICE A DAY FOR 10 DAYS 06/12 completed Not Available Not Available Not Available mycophenola te mofetil 500 mg tablet TAKE 1 TABLET BY MOUTH TWICE A DAY active Not Available Not Available No t Available pantoprazol e 40 mg tablet,marnie yed release TAKE 1 TABLET BY MOUTH EVERY MORNING ON EMPTY STOMACH, WAIT 30 MINS THEN EAT TO ACTIVATE MED active Not Available Not Available No t Available simvastatin 20 mg tablet TAKE 1 TABLET BY MOUTH EVERYDAY AT BEDTIME active Not Available Not Available No t Available metformin 1,000 mg tablet TAKE 1 TABLET BY MOUTH TWICE A DAY active Not Available Not Available No t Available lidocaine 5 % topical patch 1 PATCH TOPICALLY DAILY FOR 30 DAYS LEAVE ON MOST PAINFUL AREA FOR UP TO 12 HRS active Not Available Not Available No t Available losartan 100 mg tablet TAKE 1 TABLET BY MOUTH EVERY DAY active Not Available Not Available No t Available oxycodone 5 mg tablet TAKE 1 TABLET BY MOUTH EVERY 4 HOURS NEEDED FOR PAIN FOR 7 DAYS active Not Available Not Available No t Available neomycin-po lymyxin-hyd rocort 3.5 mg-10,000 unit/mL-1 % ear drops,susp active Not Available Not Available N ot Available azithromyci n 500 mg tablet TAKE 1 TABLET BY MOUTH DAILY FOR 5 DAYS active Not Available Not Available No t Available Anoro Ellipta 62.5 mcg-25 mcg/actuati on powder for inhalation INHALE 1 PUFF DAILY active Not Available Not Available No t Available Trulicity 1.5 mg/0.5 mL subcutaneou s pen injector INJECT 1.5 MG INTO THE SKIN ONCE A WEEK. active Not Available Not Available No t Available Vitals Date Recorded Body height Body mass index (BMI) Body weight Oxygen saturation Oxygen saturation in Arterial blood by Pulse oximetry Pain severity - 0-10 verbal numeric rating [Score] - Reported Heart rate Respiratory rate Body temperature Systolic blood pressure Diastolic blood pressure Provider Name and Address Organization Details Last Updated DateTime 3 160.02 cm 32.8 kg/m2 10370.5 9 g 98 % 98 % 8 72 /min 18 /min 98.7 [degF] 135 mm[Hg] 81 mm[Hg] Cody Pittman PA - [facility] 3 09:42:37 Social History Question Answer Notes LastModified by Organizat ion Details LastModified Time Do You Use Any Illicit Or Recreational Drugs? No Information not available 06/12/2022 Have You Recently Traveled Abroad? No Information not available 06/12/2022 Do You Or Have You Ever Used Any Other Forms Of Tobacco Or Nicotine? No Information not available 06/12/2022 Sex: Unknown Functional Status None recorded. Mental Status None recorded. Family History Relationship Description Onset Age of this Age Resolved Age Notes LastModified by Organization Details LastModified Time Father No current problems or disability Not available 06/12 09:47:19 Mother No current problems or disability Not available 06/12 09:47:19 Medical History No medical history recorded. Gynecological HistoryNo gynecological history recorded. Obstetrics History GPAL:G 0 P 0 0 0 0 Immunizations Vaccine Type Date Status Note Provider Nam e and Address Organization Details Recorded Time Influenza, MDCK, quadrivalent, PF 0 completed Cody Toya null, PA - [facility] 06/12/2022 09:44:18 Influenza, MDCK, quadrivalent, PF 1 completed Cody Toya null, PA - [facility] 06/12/2022 09:44:18 Influenza, MDCK, quadrivalent, PF 8 completed Cody Toya null, PA - [facility] 06/12/2022 09:44:18 Influenza, MDCK, quadrivalent, PF 9 completed Cody Toya null, PA - [facility] 06/12/2022 09:44:18 Influenza, MDCK, quadrivalent, preservative 7 completed Cody Toya null, PA - [facility] 06/12/2022 09:44:19 COVID-19, mRNA, LNP-S, PF, 30 mcg/0.3 mL dose 2 completed Cody Toya null, PA - [facility] 06/12/2022 09:44:19 COVID-19, mRNA, LNP-S, PF, 30 mcg/0.3 mL dose 1 completed Cody Toya null, PA - [facility] 06/12/2022 09:44:19 COVID-19, mRNA, LNP-S, PF, 30 mcg/0.3 mL dose 1 completed Cody Toya null, PA - [facility] 06/12/2022 09:44:19 COVID-19, mRNA, LNP-S, bivalent, PF, 50 mcg/0.5 mL or 25mcg/0.25 mL dose 2 completed Cody Toya null, PA - [facility] 06/12/2022 09:44:19 pneumococcal polysaccharide PPV23 2 completed Cody Toya null, PA - [facility] 06/12/2022 09:44:19 pneumococcal polysaccharide PPV23 4 completed Cody Toya null, PA - [facility] 06/12/2022 09:44:19 Tdap 0 completed Cody Toya null, PA - [facility] 06/12/2022 09:44:19 Influenza, split virus, trivalent, preservative 9 completed Cody Toya null, PA - [facility] 06/12/2022 09:44:19 Influenza, split virus, trivalent, preservative 3 completed Cody Toya null, PA - [facility] 06/12/2022 09:44:19 Influenza, split virus, trivalent, preservative 0 completed Cody Toya null, PA - [facility] 06/12/2022 09:44:19 Influenza, split virus, trivalent, preservative 8 completed Cody Toya null, PA - [facility] 06/12/2022 09:44:19 Influenza, split virus, trivalent, preservative 4 completed Cody Toya null, PA - [facility] 06/12/2022 09:44:19 Influenza, split virus, trivalent, preservative 7 completed Cody Toya null, PA - [facility] 06/12/2022 09:44:19 Influenza, split virus, trivalent, preservative 5 completed Cody Toya null, PA - [facility] 06/12/2022 09:44:19 Influenza, split virus, trivalent, preservative 1 completed Cody Toya null, PA - [facility] 06/12/2022 09:44:19 Influenza, split virus, trivalent, preservative 6 completed Cody Toya null, PA - [facility] 06/12/2022 09:44:19 Influenza, split virus, trivalent, preservative 6 completed Cody Toya null, PA - [facility] 06/12/2022 09:44:19 Influenza, split virus, trivalent, preservative 5 completed Cody Toya null, PA - [facility] 06/12/2022 09:44:19 Influenza, split virus, trivalent, preservative 2 completed Cody Toya null, PA - [facility] 06/12/2022 09:44:19 Td (adult), 2 Lf tetanus toxoid, preservative free, adsorbed 0 completed Cody Toya null, PA - [facility] 06/12/2022 09:44:19 Influenza, split virus, quadrivalent, PF 2 completed Cody Toya null, PA - [facility] 06/12/2022 09:44:19 Past Encounters Encounter ID Performer Location Encounter Start Date Encounter Closed Date Diagnosis/Indication Diagnosis SNOMED-CT Code Diagnosis ICD10 Code Diagnosis Note [id number] [address] [place] [address] 02/07/2022 12:20:48 02/07/2022 17:05:16 [id number] [address] [place] [address] 08/04/2021 11:47:53 08/04/2021 13:34:22 [id number] Nico Blue, CANCER GENETICS ASSISTANT [address] [place] [address] 06/12/2022 09:26:24 06/12/2022 10:29:46 Chest pain 29452696 R07.9 Exposure t o SARS-CoV-2 325370382 Z20.822 Health Concerns Section Related Observation LastModified by Organization Marizaai starr LastModified Time None Recorded Concern Status LastModified by Organization Details LastModified Time None Recorded Advance Directives Directive None Recorded Payers Encounter Date Sequence Insurance Name Policy Number Policy Day Covered Member ID Day Member ID Guarantor Name 08/04/2021 1 [facility] [place] Alis Sanchez [id number] Alis Sanchez 02/07/2022 1 [facility] [place] Alis Sanchez [id number] Alis Sanchez 06/12/2022 1 [facility] [id number] Alis Sanchez [id number] Alis Sanchez Notes Date Note Type Note Provider Name and Address Organization Details Recorded Time 3 text/html Chest PainReported bypatient.source of patient informationInformation obtained from patient; Patient arrived at Urgent Care ambulatory; learning styles: auditory Location:chest Quality:pressure;tightness; aching Severity:mild Duration:lasts hours Onset/Timing:abrupt onset without warning Context:at rest Alleviating Factors:nothing gives relief Aggravating Factors:worse with inspiration Associated Symptoms:no dyspnea; no decrease in exercise capacity; no fatigue; no nocturnal episodes; no resting episodes; no associated palpitations; no associated dizziness;chest discomfort Nico Mcarthur NP [address] [place], [address], PA - [facility] 06/12/2022 11:12:32 OBGyn Episode No OBEpisode recorded.
--- OUTSIDE RECORDS SUMMARY | 2024-05-23 11:39 | XMS_ITS | Clinical Summary ---
Author Organization [address] Building Address [address] [place] [phone] Phone Care Team Providers Care Assessment Manager Name Role Phone Wilfredo Marin MD Primary Care Provider [phone] Allergies Active Allergy Reactions Criticality Noted Date Comments Metronidazole Rash Medium 03/12/2024 Glipizide 11/08/2018 Mycophenolate Mofetil Palpitations High 06/16/2020 Penicillin Nausea And Vomiting Medium 03/12/2024 Pregabalin Headache Medium 12/24/2010 Sitagliptin Rash,Other Low 11/26/2018 Sulfa (Sulfonamide Antibiotics) 05/11 Medications DILT-XR 120 mg 24 hr capsuleIndicati ons:Palpitation s TAKE 1 CAPSULE BY MOUTH DAILY FOR 360 DAYS. 90 capsule 3 03/04/2024 Active metFORMIN XR (GLUCOPHAGE-XR) 500 mg 24 hr tablet Take 1 tablet (500 mg total) by mouth 1 (one) time each day. 90 tablet 03/04/2024 Active simvastatin (ZOCOR) 40 mg tablet Take 1 tablet (40 mg total) by mouth at bedtime. Active mycophenolate (CELLCEPT) 500 mg tablet Take 1 tablet (500 mg total) by mouth 2 (two) times a day. Active gabapentin (NEURONTIN) 300 mg capsule Take 1 capsule (300 mg total) by mouth if needed. Active pantoprazole (PROTONIX) 20 mg EC tablet Take 1 tablet (20 mg total) by mouth 1 (one) time each day if needed. Do not crush, chew, or split. Active dulaglutide (Trulicity) 1.5 mg/0.5 mL pen injector injection Inject 0.5 mL (1.5 mg total) under the skin every 7 (seven) days. Active morphine (MSIR) 15 mg tablet Take 1 tablet (15 mg total) by mouth every 4 (four) hours if needed for severe pain. Active aspirin 81 mg EC tablet Take 1 tablet (81 mg total) by mouth 1 (one) time each day. Active losartan (Cozaar) 25 mg tablet Take 0.5 tablets (12.5 mg total) by mouth at bedtime. 15 each 2 04/22/2024 Active Active Problems Problem Noted Date Diagnosed Date Chest pain 05/03/2024 Assessment & Plan (05/06/2024 2:33 PM EST): She does continue to endorse episodes of left-sided chest discomfort with associated diaphoresis, nausea and shortness of breath. Subsequently, I have ordered a cardiac CT to further evaluate for any areas of ischemia. Instructed to call 911 or go to the emergency room should the patient begin to experience chest pain or pressure lasting greater than 10 minutes does not resolve with rest. This time she will continue on aspirin and statin therapy. Orders: ECG [address] Angio Heart w 3D Imaging/Function; Future Asthma 04/22/2024 Diabetes mellitus 04/22/2024 Class 1 obesity 04/22/2024 Constipation 04/22/2024 Diarrhea 04/22/2024 Diverticulosis 04/22/2024 Epigastric pain 04/22/2024 Liver cyst 04/22/2024 Liver lesion 04/22/2024 Overview (04/22/2024): Left and right lobe noted on MRI Sciatica 04/22/2024 Coronary artery disease due to calcified coronar y lesion 04/20/2023 Overview (04/22/2024): 01/2023 nuclear stress test from [facility] showed a small, mostly fixed mild perfusion defect in the anterior wall from the apex to the base with minimal reversibility in the basal anterior wall with reduced thickening suggestive of mild infarct with minimal lissa-infarct ischemia. Last Assessment & Plan: The patient has not had any chest discomfort since her last visit!! This is great news!! She is tolerating her CCB at current dose. Continue ASA and statin as well. For now, no changes in her current treatment plan. She will let me know if she has any changes in her current condition. As always, she is encouraged to increase her exercise as much as possible Assessment & Plan (05/06/2024 2:33 PM EST): See care plan for chest pain. Orders: CT Angio Heart w 3D Imaging/Function; Future Palpitations 04/20/2023 Overview (04/22/2024): Last Assessment & Plan: She has not had any significant palpitations of late. This is great news! Continue CCB at current dose. Pleural effusion 03/29/2022 Pericardial effusion 03/19/2021 Gastroesophageal reflux disease without esophagi tis 10/08/2020 Pulmonary nodules/lesions, multiple 10/08/2020 Arthralgia of multiple sites 10/08/2020 Hair loss 10/08/2020 Muscle cramps 10/08/2020 Myalgia 10/08/2020 Other insomnia 10/08/2020 Rotator cuff arthropathy of both shoulders 10/08 Trigger index finger of left hand 10/08/2020 Sarcoidosis 09/30/2020 Liver mass 06/16/2020 Overview (04/22/2024): Found on CT scan at ED at [facility] on 06/12/2020 S/P lobectomy of lung 01/07/2020 Hypertension 11/04/2019 Overview (04/22/2024): Last Assessment & Plan: Blood pressure well controlled after cessation of her ARB. Continue to follow BP at home periodically. She does tend to have some worry and angst, and therefore, I have recommended that she check her BP no more than 3x/wk to avoid anxiety as a contributor to BP elevation. Assessment & Plan (05/06/2024 2:33 PM EST): Well-controlled during today's exam with a reading [...] tends to be nervous taking her blood pressure in the evenings. I have made no changes [...] engage in routine aerobic exercise as tolerated. Assessment & Plan (04/22/2024 11:15 AM EST): Regards to her elevated blood pressure at night; she will start taking losartan 12.5 mg at bedtime. This should better control her blood pressure while she is sleeping. She will continue diltiazem 125 mg in the morning. Will monitor electrolytes. Orders: Basic metabolic panel; Future Diabetes mellitus with cataract 11/08/2018 Assessment & Plan (04/22/2024 11:15 AM EST): Diabetic diet discussed. Will check A1c. Continue metformin, dulaglutide. Orders: Hemoglobin A1c; Future Microalbumin creatinine urine ratio; Future Medial meniscus tear 05/21/2017 Overview (04/22/2024): [facility] (05/17/17): arthroscopy discussed. DM type 2 with diabetic peripheral neuropathy CKD (chronic kidney disease) stage 2, GFR 60-89 ml/min 12/30/2013 Urolithiasis 06/13/2013 Overview (04/22/2024): Sono 06/21 Vertigo 12/21/2011 Hyperlipidemia 06/27/2006 Overview (04/22/2024): Last Assessment & Plan: LDL somewhat above target with presumed CAD based on non-invasive testing. Continue statin at current dose given concurrent CCB use. Dietary modification and exercise will help as well. If her LDL is elevated on next check, can change statin to Crestor. Phlebitis and thrombophlebitis of other sites Overview (04/22/2024): 1987; groin; s/p childbirth O update DM (diabetes mellitus), type 2 with renal compli cations 05/27/2005 Chronic back pain 05/27/2005 Overview (04/22/2024): [facility] update Encounters Date Type Department Care Team Description 05/21/2024 Telephone Internal Medicine - [address] [place] [phone] Wilfredo Marin MD Referral 05/20/2024 Telephone [facility] [address] [facility] [address] [place] [phone] Meagan Alberto NP Testing (Auth Coronary CTA) 05/15/2024 10:40 AM EST Office Visit Gastroenterology - [place] [address] [place] [phone] Jaden Christensen PA Diabetes 1.5, managed as type 2 (CMS/HCC) (Primary Dx); Fatty liver; H/O acute myocardial infarction 05/08/2024 9:00 AM EST - 05/08/2024 11:59 PM EST Hospital Encounter Ultrasound - [facility] [address] [place] [phone] Fatty liver Discharge Disposition: Home or Self Care 05/06/2024 1:40 PM EST Office Visit [facility] - [address] [place] [phone] Meagan Alberto NP Chest pain, unspecified type (Primary Dx); Coronary artery disease due to calcified coronary lesion; Hypertension, unspecified type 04/29/2024 Telephone Internal Medicine - [address] [phone] Wilfredo Marin MD prior authorization 04/25/2024 Telephone Internal Medicine - [address] [phone] Wilfredo Marin MD Referral 04/22/2024 10:30 AM EST Office Visit Internal Medicine - [address] [phone] Wilfredo Marin MD Chest pain, unspecified type (Primary Dx); Hypertension, unspecified type; Fatty liver; Diabetes mellitus with cataract ([facility]/HCC) 04/02/2024 Telephone Internal Medicine - [address] [phone] Jane Zavala MA 04/01/2024 Telephone [facility] - [facility] [address] [facility] [address] [place] [address] Austin Juarez MD Hospitalized (FYI ) 03/27/2024 Telephone Internal Medicine [address] [phone] Wilfredo Marin MD Medication Problem; provider call back 03/12/2024 11:00 AM EST Telemedicine [facility] [employer] - [address] [phone] Medicare annual wellness visit, subsequent (Primary Dx) 03/11/2024 Telephone [facility] [employer] - [address] [phone] Mila Pacheco [place] Medicare Annual Wellness Visit Subsequent (AWV DUE 2023) from Last 3 Months Immunizations Name Administration Dates Next Due Influenza Quadravalent, MDCK , 0.5ml, preservative free (Flucelvax) 6mo and older 01/13/2021,01/09/2020,02/20/2019,01/19 Influenza Quadravalent, MDCK , 0.5ml, with preservative (Flucelvax) 6mo and older 03/07/2017 Influenza Quadrivalent, 0.5m l, preservative free (Fluarix; FluLaval; Fluzone) ages 6mo and older (Afluria) 3yo and older 02/03/2023,03/07/2022 Influenza trivalent, 0.5mL ( Fluzone High-dose) 65yo and older 02/16/2024 Influenza trivalent, with pr eservative (Fluzone; Afluria) 6mo and older 02/24/2016,03/20/2015,02/03/2014,01/22,03/30/2012,02/22/2011,01/28/2010 ,01/16/2009,02/04/2008,02/06/2007,02/09,02/10/2005 Influenza, Unspecified 02/03/2023 PPD Test 09/19/2007,02/09/2001,02/06/2001 Pneumococcal polysaccharide 23 valent (Pneumovax 23) 2yo and older 04/26/2021,12/04/2013 RSV, bivalent, protein subun it RSVpreF, 0.5mL, Preservative Free (Arexvy) 60yo and older 02/16/2024 Td Tetanus diptheria (Tdvax) 7yo and older 06/19/2019 Tdap Tetanus diptheria acell ular pertussis (Boostrix; Adacel) 7yo and older 05/20/2009 Zoster Live 05/11/2013 Surgical History Surgery Date Site/Laterality Comments OTHER SURGICAL HISTORY 06/2007 PROCEDURE: [facility] ECHO TRANSTHORAC R-T 2D W/WO M-MODE REC COMP; COMMENT: neg SECTION PROCEDURE: [facility] DELIVERY ONLY; COMMENT: x 3 TONSILLECTOMY ADENOIDECTOMY, BILATERAL MYRINGOTOMY AND TUBES PROCEDURE: [facility] TONSILLECTOMY & ADENOIDECTOMY <AGE 12; COMMENT: as achild COLONOSCOPY 07/21/19 10 PROCEDURE: HISTORICAL COLONOSCOPY; COMMENT: normal; repeat in ten years OTHER SURGICAL HISTORY 03/09/20 16 PROCEDURE: [facility] RMVL LUNG XCP TOT PNEUMONECTOMY SLEEVE LOBECTOMY ESOPHAGOGASTRODUODENOSCOPY 07/20/19 18 PROCEDURE: [facility] ESOPHAGOGASTRODUODENOSCOPY TRANSORAL DIAGNOSTIC; COMMENT: reactive antral gastropathy; biopsies negative for Helicobacter pylori. ESOPHAGOGASTRODUODENOSCOPY PROCEDURE: [facility] EGD TRANSORAL BIOPSY SINGLE/MULTIPLE; COMMENT: Performed June 18, 2019 with with colonoscopy COLONOSCOPY PROCEDURE: HISTORICAL COLONOSCOPY; COMMENT: Performed on June 18, [address] Fisher with EGD OTHER SURGICAL HISTORY PROCEDURE: LUNG BIOPSY THROUGH CHEST WALL OTHER SURGICAL HISTORY Right removed calcium buildup Medical History Medical History Date Comments Backache, unspecified 05/27/2005 DX:Backach e, unspecified Phlebitis and thrombophlebit is of other site 01/09/2006 DX:Phlebitis and thrombophle bitis of other site Other and unspecified hyperlipidemia 06/27/2006 DX:Other and unspecified hyperlipidemia Contact dermatitis and other eczema, due to unspecified cause 06/28/2006 DX:Contact dermatitis and ot her eczema, due to unspecified cause Type II or unspecified type diabetes mellitus without mention of complication, not stated as uncontrolled 05/27/2005 DX:Type II or unspecified ty pe diabetes mellitus without mention of complication, not stated as uncontrolled Vertigo 12/21/2011 DX:Vertigo Medial meniscus tear 05/21/2017 DX:Medial m eniscus tear Cataract 11/08/2018 DX:Cataract Diabetes mellitus with catar act ([facility]/HCC) 11/08/2018 DX:Diabetes mellitus with ca taract ([facility]) Diverticulosis DX:Diverticulosi s Heartburn DX:Heartburn Abdominal pain DX:Abdominal jennifer n GERD (gastroesophageal reflu x disease) DX:GERD (gastroesophageal re flux disease) GERD (gastroesophageal reflu x disease) DX:GERD (gastroesophageal re flux disease) Abdominal pain DX:Abdominal jennifer n Constipation DX:Constipation Gassiness DX:Gassiness Liver lesion DX:Liver lesion; COMMENT: Left and right lobe noted on MRI History of granulomatous disease DX:History of granulomatous disease; COMMENT: Of lungs Liver cyst DX:Liver cyst Epigastric pain DX:Epigastric pa in Diarrhea DX:Diarrhea Covid DX:COVID Sarcoidosis DX:Sarcoidosis Covid 10/13/2021 DX:COVID; COMMEN T: [facility] + 10/12/21 Nausea and vomiting DX:Nausea an d vomiting Postprandial epigastric pain DX: Postprandial epigastric pain Decreased appetite DX:Decreased appetite Weight loss DX:Weight loss Anxiety state DX:Anxiety state Stress DX:Stress Coronary artery disease due to calcified coronary lesion 04/20/2023 DX:Coronary artery disease d ue to calcified coronary lesion CKD (chronic kidney disease) stage 2, GFR 60-89 ml/min 12/30/2013 DX:CKD (chronic kidney disea se) stage 2, GFR 60-89 ml/min Asthma 04/22/2024 Hypertension 11/04/2019 Family History Medical History Relation Name Comments Breast cancer Aunt maternal maternal Aunt; bilateral Cataracts Brother 1 Diabetes Brother 1 Hi ( twin) 2014 Heart failure Brother 1 Diabetes Brother 2 Maxi Twin 2016 Eczema Brother 3 No Known Problems Daughter No Known Problems Father No Known Problems Maternal Grandfather Pancreatic cancer Maternal Grandmother Diabetes Mother Heart attack Mother Blindness Other 1 blind in one ey e Strabismus Other 1 daughter Stroke Other 2 Mat cousin No Known Problems Paternal Grandfather No Known Problems Paternal Grandmother Diabetes Sister Cataracts Uncle maternal uncle Glaucoma Uncle maternal uncle Macular degeneration Neg Hx Relation Name Status Comments Aunt maternal Brother 1 Brother 2 Brother 3 Alive Daughter Alive x3 Father Maternal Grandfather Maternal Grandmother Mother Other 1 Other 2 Paternal Grandfather Paternal Grandmother Sister Uncle Social History Tobacco Use Types Packs/Day Years Used Date Smoking Tobacco: Former Cigarettes 0.5 35.7 0 04/10/1974 - 12/31/2009 Smokeless Tobacco: Never Tobacco Cessation:Counseling Given: Not Answered Alcohol Use Standard Drinks/Week Comments No 0 [...] Orientation Straight 05/09/2024 4: 00 AM EST Obstetrics History Last Filed Vital Signs Vital Sign Reading Time Taken Comments Blood Pressure 132/78 05/06/2024 1:40 PM EST Pulse 71 05/15/2024 10:58 AM EST Temperature - - Respiratory Rate - - Oxygen Saturation 96% 05/15/2024 10:58 AM EST Inhaled Oxygen Concentration - - Weight 80.7 kg (178 lb) 05/15/2024 10:58 AM EST Height 160 cm (5' 3 ) 05/15/2024 10:58 AM EST Body Mass Index 31.53 05/15/2024 10:58 AM EST Plan of Treatment Upcoming Encounters Date Type Department Care Team (Late st Contact Info) Description 06/21/2024 11:00 AM EDT Office Visit Internal Medicine - [facility] [address] [place] [phone] Wilfredo Marin MD [address] [place] [address] 09/06/2024 7:40 AM EDT Office Visit [facility] - [address] [place] [phone] Meagan Alberto NP [address] [place] [address] Health Maintenance Due Date Last Done Comments Diabetes: Annual Foot Exam 1968 Diabetes: Annual Retina Eye Exam 1968 Hepatitis A Vaccines (1 of 2 - Risk 2-dose series) 1977 Zoster Vaccines (1 of 2) 07/06/2013 05/11/2013 Hepatitis B Vaccines (1 of 3 - Risk 3-dose series) 2018 Depression Screening 03/18/2022 Pneumococcal Vaccine: 50+ Years (3 of 3 - PCV) 04/26/2022 04/26/2021, 12/04/2013 Pneumococcal Vaccine: Pediatrics (0 to 5 Years) and At-Risk Patients (6 to 64 Years) (3 of 3 - PCV) 04/26/2022 04/26/2021, 12/04/2013 COVID-19 Vaccine ( season) 2023 01/25/2022, 04/17/2021, 07/19/2020, Additional history exists Diabetes: Blood Sugar Control Test (HGBA1C) 10/29/2024 05/01/2024, 11/09/2023, 11/09/2023 Falls Risk Assessment 03/12/2025 03/12/2024 Medicare Annual Wellness Visit 03/12/2025 03/12/2024 Social Influencers of Health Screening 03/12/2025 03/12/2024 Diabetes: Annual Urine Albumin-Creatinine Ratio (uACR) 05/01/2025 05/01/2024 Diabetes: Annual GFR (Glomerular Filtration Rate) 05/15/2025 05/15/2024, 05/01/2024, 02/12/2024, Additional history exists Hypertension/CHF/CAD Annual BMP Blood Test 05/15/2025 05/15/2024, 05/01/2024, 02/12/2024, Additional history exists Cervical Cancer Screening: Pap Smear 07/05/2025 07/05/2022, 09/20/2018 Breast Cancer Screening 02/08/2026 02/09/20, 02/09/2024, 01/31/2023, Additional history exists Cholesterol Screening (Lipid Panel) 05/01/2029 05/01/2024, 11/09/2023, 11/09/2023 Colorectal Cancer Screening: Colonoscopy 06/17/2029 06/18/2019 DTaP,Tdap,and Td Vaccines (3 - Td or Tdap) 06/18/2029 06/19/2019, 05/20/2009 Osteoporosis Screening (Bone Density Screening) 10/27/2032 10/27/2022 Hepatitis C Screening Completed 03/15/2023 Influenza Vaccine Completed 02/16/2024, , 02/03/2023, Additional history exists RSV Immunization Patients 60+ Years Old Completed 02/16/2024 HIB Vaccines Aged Out No longer eligi ble based on patient's age to complete this topic HPV Vaccines Aged Out No longer eligi ble based on patient's age to complete this topic IPV Vaccines Aged Out No longer eligi ble based on patient's age to complete this topic MMR Vaccines Aged Out No longer eligi ble based on patient's age to complete this topic Meningococcal ACWY Vaccine Aged Out N o longer eligible based on patient's age to complete this topic Meningococcal B Vacine Aged Out No lo nger eligible based on patient's age to complete this topic RSV Immunization Patients Under 20 months Aged Out No longer eligible based on patient's age to complete this topic Varicella Vaccines Aged Out No longer eligible based on patient's age to complete this topic Procedures Procedure Name Priority Date/Time Associated Diagnosis Comments CBC WITH AUTO DIFFERENTIAL Routine 05/15/2024 11:18 AM EST Fatty liver Diabetes 1.5, managed as type 2 (CMS/HCC) H/O acute myocardial infarction COMPREHENSIVE METABOLIC PANEL Routine 05/15/2024 11:18 AM EST Fatty liver Diabetes 1.5, managed as type 2 (CMS/HCC) H/O acute myocardial infarction CBC AND DIFFERENTIAL Routine 05/15/2024 11:18 AM EST Fatty liver Diabetes 1.5, managed as type 2 (CMS/HCC) H/O acute myocardial infarction US ABDOMEN LIMITED Routine 05/08/2024 9: 41 AM EST Fatty liver ECG 12-LEAD Routine 05/06/2024 2:29 PM EST Chest pain, unspecified type BASIC METABOLIC PANEL Routine 05/01/2024 9:09 AM EST Hypertension, unspecified type HEMOGLOBIN A1C Routine 05/01/2024 9:09 AM EST Diabetes mellitus with cataract (CMS/HCC) MICROALBUMIN CREATININE URINE RATIO Routine 05/01/2024 9:09 AM EST Diabetes mellitus with cataract (CMS/HCC) LIPID PANEL WITH REFLEX TO DIRECT LDL Routine 05/01/2024 9:09 AM EST Fatty liver HEPATIC FUNCTION PANEL Routine 05/01/2024 9:09 AM EST Fatty liver SCREENING MAMMOGRAPHY BI 2-VIEW BREAST INC CAD Routine 02/09/2024 10:34 AM EDT Encounter for screening mammogram for malignant neoplasm of breast HEPATITIS C SCREENING Routine 03/15/2023 DXA BONE DENSITY STUDY 1+ SITS AXIAL SKEL Routine 10/27/2022 2:33 PM EDT Encounter for screening for osteoporosis PAP SMEAR Routine 07/05/2022 COLONOSCOPY Routine 06/18/2019 from Last 3 Months or Most Recently Relevant to Health Maintenance Results * (ABNORMAL) CBC auto differential (05/15/2024 11:18 AM EST) [facility] [address] WBC 6.5 4.8 - 10.8 K/mcL LAB HEMETOLOGY METHOD 05/15/2024 2:30 PM [facility] RBC 4.60 3.80 - 4.80 M/mcL LAB HEMETOLOGY METHOD 05/15/2024 2:30 PM [facility] Hemoglobin 12.7 11.5 - 16.0 g/dL LAB HEMETOLOGY METHOD 05/15/2024 2:30 PM [facility] Hematocrit 38.3 35.0 - 47.0 % LAB HEMETOLOGY METHOD 05/15/2024 2:30 PM [facility] MCV 83.3 79.0 - 98.0 FL LAB HEMETOLOGY METHOD 05/15/2024 2:30 PM [facility] MCH 27.6 27.0 - 32.0 pcg LAB HEMETOLOGY METHOD 05/15/2024 2:30 PM [facility] MCHC 33.2 32.0 - 37.0 g/dL LAB HEMETOLOGY METHOD 05/15/2024 2:30 PM [facility] RDW 14.5 11.0 - 15.0 % LAB HEMETOLOGY METHOD 05/15/2024 2:30 PM [facility] Platelets 254 130 - 400 K/mcL LAB HEMETOLOGY METHOD 05/15/2024 2:30 PM [facility] MPV 11.5(H) 7.0 - 11.0 FL LAB HEMETOLOGY METHOD 05/15/2024 2:30 PM [facility] NRBC 0.0 <1.0 % LAB HEMETOLOGY METHOD 05/15/2024 2:30 PM [facility] NRBC Absolute 0.00 <0.10 K/mcL LAB HEMETOLOGY METHOD 05/15/2024 2:30 PM [facility] Neutrophils Relative 53.7 % LAB HEMETOLOGY METHOD 05/15/2024 2:30 PM [facility] Lymphocytes Relative 32.1 % LAB HEMETOLOGY METHOD 05/15/2024 2:30 PM [facility] Monocytes Relative 11.7 % LAB HEMETOLOGY METHOD 05/15/2024 2:30 PM [facility] Eosinophils Relative 1.5 % LAB HEMETOLOGY METHOD 05/15/2024 2:30 PM [facility] Basophils Relative 0.8 % LAB HEMETOLOGY METHOD 05/15/2024 2:30 PM [facility] Immature Granulocytes Relative 0.2 % LAB HEMETOLOGY METHOD 05/15/2024 2:30 PM [facility] Neutrophils Absolute 3.48 1.50 - 7.00 K/mcL LAB HEMETOLOGY METHOD 05/15/2024 2:30 PM [facility] Lymphocytes Absolute 2.08 1.00 - 5.00 K/mcL LAB HEMETOLOGY METHOD 05/15/2024 2:30 PM [facility] Monocytes Absolute 0.76 0.20 - 1.00 K/mcL LAB HEMETOLOGY METHOD 05/15/2024 2:30 PM [facility] Eosinophils Absolute 0.10 0.00 - 0.50 K/mcL LAB HEMETOLOGY METHOD 05/15/2024 2:30 PM [facility] Basophils Absolute 0.05 0.00 - 0.20 K/mcL LAB HEMETOLOGY METHOD 05/15/2024 2:30 PM [facility] Immature Granulocytes Absolute 0.01 0.00 - 0.03 K/mcL LAB HEMETOLOGY METHOD 05/15/2024 2:30 PM [facility] Blood Venous blood specimen / Unknown Venipuncture / Unknown 05/15/2024 11:18 AM EST 05/15/2024 11:18 AM EST us Jaden BAILEY LAB BLOOD ORDERABLES Final Resu lt [facility] [address] [place] [address], * Comprehensive metabolic panel (05/15/2024 11:18 AM EST) Pathologist [facility] Sodium 138 133 - 145 mmol/L LAB CHEMISTRY METHOD 05/15/2024 6:31 PM [facility] Potassium 4.3 3.5 - 5.5 mmol/L LAB CHEMISTRY METHOD 05/15/2024 6:31 PM [facility] Chloride 105 96 - 110 mmol/L LAB CHEMISTRY METHOD 05/15/2024 6:31 PM [facility] CO2 30 21 - 32 mmol/L LAB CHEMISTRY METHOD 05/15/2024 6:31 PM [facility] Anion Gap 3 3 - 11 LAB CHEMISTRY METHOD 05/15/2024 6:31 PM [facility] Glucose 89 70 - 100 mg/dL LAB CHEMISTRY METHOD 05/15/2024 6:31 PM [facility] BUN 20 5 - 25 mg/dL LAB CHEMISTRY METHOD 05/15/2024 6:31 PM [facility] Creatinine 0.81 0.50 - 1.10 mg/dL LAB CHEMISTRY METHOD 05/15/2024 6:31 PM [facility] eGFR 81 >=60 mL/min/1. 73m2 LAB CHEMISTRY METHOD 05/15/2024 6:31 PM [facility] Comment:Calculation based on the??Chronic Kidney Disease Epidemiology Collaboration (CKD-EPI) equation refit??without adjustment for race. BUN/Creatinine Ratio 24.7 LAB CHEMISTRY METHOD 05/15/2024 6:31 PM [facility] Calcium 9.8 8.5 - 10.5 mg/dL LAB CHEMISTRY METHOD 05/15/2024 6:31 PM [facility] AST (SGOT) 11 10 - 42 unit/L LAB CHEMISTRY METHOD 05/15/2024 6:31 PM [facility] ALT (SGPT) 19 10 - 60 unit/L LAB CHEMISTRY METHOD 05/15/2024 6:31 PM [facility] Alkaline Phosphatase 71 42 - 121 unit/L LAB CHEMISTRY METHOD 05/15/2024 6:31 PM [facility] Total Protein 7.2 6.0 - 8.0 g/dL LAB CHEMISTRY METHOD 05/15/2024 6:31 PM [facility] Albumin 3.8 3.2 - 5.0 g/dL LAB CHEMISTRY METHOD 05/15/2024 6:31 PM [facility] Total Bilirubin 0.4 0.0 - 1.4 mg/dL LAB CHEMISTRY METHOD 05/15/2024 6:31 PM [facility] Blood Venous blood specimen / Unknown Venipuncture / Unknown 05/15/2024 11:18 AM EST 05/15/2024 11:18 AM EST us Jaden BAILEY LAB BLOOD ORDERABLES Final Resu lt [facility] [address] [place] [address], [place] [phone] * US Abdomen Limited (05/08/2024 9:41 AM EST) Anatomical Region Laterality Modality Body Ultrasound 05/08/2024 3:01 PM EST Impressions 05/08/2024 3:46 PM EST 1. ??Similar coarsened echotexture of the liver parenchyma, which may reflect nonspecific hepatocellular disease. 2. ??No focal hepatic lesions demonstrated on today's examination. ??Previously suggested left hepatic echogenic lesion could have been artifactual from the fat surrounding the falciform ligament. -------- FINAL REPORT -------- Dictated By: Holger Souza Dictated Date: 05/08/2024 15:01 ET Assigned Physician: Holger Souza Reviewed and Electronically Signed By: Holger Souza Signed Date: 05/08/2024 15:46 ET Workstation ID: [id number] Transcribed By: Self Edit Transcribed Date: 05/08/2024 15:40 ET Narrative 05/08/2024 3:46 PM EST EXAM: ??US ABDOMEN LIMITED TECHNIQUE: US Abdominal limited right upper quadrant. HISTORY: liver cyst ??vs fatty liver COMPARISON: Ultrasound on April 11, 2023. ??Abdomen MRI on June 26, 2020. FINDINGS: Pancreas: No focal lesions identified. ??Mild dilatation of the main pancreatic duct up to 0.5 cm at the level of the body, similar to prior study from 2020. Liver: ??Liver length of 16.2 cm. ??Coarsened echotexture.No focal lesions appreciated on today's examination. Previously suggested apparent echogenic lesion in the left hepatic lobe may had been an artifact from the fat surrounding the falciform ligament. ?? Main Portal Vein: Patent with normal direction of flow. Gallbladder: No gallstones or gallbladder wall thickening. Biliary: No biliary ductal dilatation. The common bile duct measures 0.6 cm. Right Kidney: Size: 13.6 cm. No renal stones or hydronephrosis. Upper AORTA and IVC: Visualized upper portions of aorta and inferior vena cava are unremarkable. Procedure Note Holger Souza MD - 05/08/2024 EXAM: US ABDOMEN LIMITED TECHNIQUE: US Abdominal limited right upper quadrant. HISTORY: liver cyst vs fatty liver COMPARISON: Ultrasound on April 11, 2023. Abdomen MRI on June. FINDINGS: Pancreas: No focal lesions identified. Mild dilatation of the mainpancreatic duct up to 0.5 cm at the level of the body, similar to priorstudy from 2020. Liver: Liver length of 16.2 cm. Coarsened echotexture.No focal lesionsappreciated on today's examination. Previously suggested apparentechogenic lesion in the left hepatic lobe may had been an artifact fromthe fat surrounding the falciform ligament. Main Portal Vein: Patent with normal direction of flow. Gallbladder: No gallstones or gallbladder wall thickening. Biliary: No biliary ductal dilatation. The common bile duct measures 0.6cm. Right Kidney: Size: 13.6 cm. No renal stones or hydronephrosis. Upper AORTA and IVC: Visualized upper portions of aorta and inferior venacava are unremarkable. IMPRESSION: 1. Similar coarsened echotexture of the liver parenchyma, which mayreflect nonspecific hepatocellular disease. 2. No focal hepatic lesions demonstrated on today's examination.Previously suggested left hepatic echogenic lesion could have beenartifactual from the fat surrounding the falciform ligament. -------- FINAL REPORT -------- Dictated By: Holger Souza Dictated Date: 05/08/2024 15:01 ET Assigned Physician: Holger Souza Reviewed and Electronically Signed By: Holger Souza Signed Date: 05/08/2024 15:46 ET Workstation ID: [id number] Transcribed By: Self Edit Transcribed Date: 05/08/2024 15:40 ET us Wilfredo Marin MD IMG US PROCEDURES Final R esult * ECG 12 lead (05/06/2024 2:29 PM EST) Ventricular Rate ECG 58 BPM GEMUSE Atrial Rate 58 BPM GEMUSE P-R Interval 130 ms GEMUSE QRS Duration 88 ms GEMUSE Q-T Interval 410 ms GEMUSE QTc 402 ms GEMUSE P Wave Rindge 79 degrees GEMUSE R Rindge 72 degrees GEMUSE T Rindge 65 degrees GEMUSE ECG Interpretation Sinus bradycardia with sinus arrhythmia When compared with ECG of 12-JUN-2020 14:46, Premature atrial complexes are no longer Present Confirmed by MD Juarez Christopher ([id number]) on 05/07/2024 1:00:58 PM GEMUSE 05/06/2024 1:45 PM EST 05/07/2024 1:00 PM EST Meagan Alberto NP ECG ORDERABLES Edited Result - Final TESSY * (ABNORMAL) Lipid panel with reflex to direct LDL (05/01/2024 9:09 AM EST) Cholesterol 194 0 - 200 mg/dL LAB CHEMISTRY METHOD 05/01/2024 4:34 PM EST [facility] Triglycerides 132 0 - 150 mg/dL LAB CHEMISTRY METHOD 05/01/2024 4:34 PM EST [facility] HDL 66 >=40 mg/dL LAB CHEMISTRY METHOD 05/01/2024 4:34 PM [facility] LDL Calculated 102(H) 0 - 100 mg/dL LAB CHEMISTRY METHOD 05/01/2024 4:34 PM [facility] VLDL Cholesterol Torey 26.4 mg/dL LAB CHEMISTRY METHOD 05/01/2024 4:34 PM [facility] Non HDL Chol. (LDL+VLDL) 128 <145 mg/dL LAB CHEMISTRY METHOD 05/01/2024 4:34 PM EST [facility] Chol/HDL Ratio 2.9 0.0 - 4.4 LAB CHEMISTRY METHOD 05/01/2024 4:34 PM [facility] Blood Venous blood specimen / Unknown Venipuncture / Unknown 05/01/2024 9:09 AM EST 05/01/2024 9:09 AM EST Wilfredo Marin MD LAB BLOOD ORDERABLES Ada l Result [facility] [address] [place] [address], * (ABNORMAL) Microalbumin creatinine urine ratio (05/01/2024 9:09 AM EST) Creatinine, Urine 79.0 mg/dL LAB CHEMISTRY METHOD 05/01/2024 4:33 PM [facility] Microalb, Ur 105.0(H) 0.0 - 29.0 mg/L LAB CHEMISTRY METHOD 05/01/2024 4:33 PM [facility] Microalb/Crea t Ratio 133(H) <30 mg/g creat LAB CHEMISTRY METHOD 05/01/2024 4:33 PM [facility] Urine Urine specimen obtained by clean catch procedure / Unknown Non-blood Collection / Unknown 05/01/2024 9:09 AM EST 05/01/2024 9:09 AM EST Wilfredo Marin MD LAB URINE ORDERABLES Ada l Result [facility] [address] [place] [address], [place] [phone] * (ABNORMAL) Hemoglobin A1c (05/01/2024 9:09 AM EST) Pathologist [facility] Hemoglobin A1C 6.8(H) <6.5 % LAB CHEMISTRY METHOD 05/01/2024 2:14 PM [facility] Mean Bld Glu Estim. 148 mg/dL LAB CHEMISTRY METHOD 05/01/2024 2:14 PM [facility] Blood Venous blood specimen / Unknown Venipuncture / Unknown 05/01/2024 9:09 AM EST 05/01/2024 9:09 AM EST Wilfredo Marin MD LAB BLOOD ORDERABLES Ada l Result [facility] [address] [place] [address], [place] [phone] * Hepatic function panel (05/01/2024 9:09 AM EST) Total Protein 6.9 6.0 - 8.0 g/dL LAB CHEMISTRY METHOD 05/01/2024 4:34 PM [facility] Albumin 3.6 3.2 - 5.0 g/dL LAB CHEMISTRY METHOD 05/01/2024 4:34 PM [facility] Total Bilirubin 0.4 0.0 - 1.4 mg/dL LAB CHEMISTRY METHOD 05/01/2024 4:34 PM [facility] Bilirubin, Direct <0.1 0.0 - 0.3 mg/dL LAB CHEMISTRY METHOD 05/01/2024 4:34 PM [facility] Bilirubin, Indirect LAB CHEMISTRY METHOD 05/01/2024 4:34 PM [facility] Comment:Unable to calculate Indirect Bilirubin. ALT (SGPT) 18 10 - 60 unit/L LAB CHEMISTRY METHOD 05/01/2024 4:34 PM [facility] AST (SGOT) 12 10 - 42 unit/L LAB CHEMISTRY METHOD 05/01/2024 4:34 PM [facility] Alkaline Phosphatase 71 42 - 121 unit/L LAB CHEMISTRY METHOD 05/01/2024 4:34 PM [facility] Blood Venous blood specimen / Unknown Venipuncture / Unknown 05/01/2024 9:09 AM EST 05/01/2024 9:09 AM EST Wilfredo Marin MD LAB BLOOD ORDERABLES Ada l Result [facility] [address] [place] [address], * (ABNORMAL) Basic metabolic panel (05/01/2024 9:09 AM EST) Sodium 139 133 - 145 mmol/L LAB CHEMISTRY METHOD 05/01/2024 4:33 PM [facility] Potassium 4.1 3.5 - 5.5 mmol/L LAB CHEMISTRY METHOD 05/01/2024 4:33 PM [facility] Chloride 106 96 - 110 mmol/L LAB CHEMISTRY METHOD 05/01/2024 4:33 PM [facility] CO2 30 21 - 32 mmol/L LAB CHEMISTRY METHOD 05/01/2024 4:33 PM [facility] Anion Gap 3 3 - 11 LAB CHEMISTRY METHOD 05/01/2024 4:33 PM [facility] Glucose 125(H) 70 - 100 mg/dL LAB CHEMISTRY METHOD 05/01/2024 4:33 PM [facility] BUN 18 5 - 25 mg/dL LAB CHEMISTRY METHOD 05/01/2024 4:33 PM [facility] Creatinine 0.79 0.50 - 1.10 mg/dL LAB CHEMISTRY METHOD 05/01/2024 4:33 PM [facility] eGFR 83 >=60 mL/min/1. 73m2 LAB CHEMISTRY METHOD 05/01/2024 4:33 PM [facility] Comment:Calculation based on the??Chronic Kidney Disease Epidemiology Collaboration (CKD-EPI) equation refit??without adjustment for race. BUN/Creatinine Ratio 22.8 LAB CHEMISTRY METHOD 05/01/2024 4:33 PM [facility] Calcium 8.8 8.5 - 10.5 mg/dL LAB CHEMISTRY METHOD 05/01/2024 4:33 PM [facility] Blood Venous blood specimen / Unknown Venipuncture / Unknown 05/01/2024 9:09 AM EST 05/01/2024 9:09 AM EST us Wilfredo Marin MD LAB BLOOD ORDERABLES Ada l Result [facility] [address] [place] [address], * SCREENING MAMMOGRAPHY BI 2-VIEW BREAST INC CAD (02/09/2024 10:34 AM EDT) Anatomical Region Laterality Modality Radiographic La ging 01/31/2023 10:1 0 AM EDT Narrative 02/09/2024 11:18 AM EDT This is a summary report. The complete report is available in the patient's medical record. If you cannot access the medical record, please contact the sending organization for a detailed fax or copy. Full field digital screening tomosynthesis mammography, reviewed with CAD and compared to previous. The breasts are composed of fatty and fibroglandular tissue. ??No suspicious mass, architectural distortion or suspicious calcifications are identified. IMPRESSION: : No mammographic evidence of malignancy. BIRADS 1-Negative; N. Breast density: The breasts have scattered areas of fibroglandular density. 5 year breast cancer risk assessment N/A Lifetime breast cancer risk assessment N/A Breast cancer risk category Breast cancer risk not assessed Location: [facility], [address] [place] [address], [address], [phone] Procedure Note Madiha Rodriguez MD - 03/04/2024 This is a summary report. The complete report is available in thepatient's medical record. If you cannot access the medical record, pleasecontact the sending organization for a detailed fax or copy. Full field digital screening tomosynthesis mammography, reviewed with CADand compared to previous. The breasts are composed of fatty andfibroglandular tissue. No suspicious mass, architectural distortion orsuspicious calcifications are identified. IMPRESSION: : No mammographic evidence of malignancy. BIRADS 1-Negative; N. Breast density: The breasts have scattered areas of fibroglandulardensity. 5 year breast cancer risk assessment N/A Lifetime breast cancer risk assessment N/A Breast cancer risk category Breast cancer risk not assessed Location: [facility], [address] [place] [address], [phone], [phone] Wilfredo Marin MD IMG XR PROCEDURES Final R esult * Hepatitis C Screening (03/15/2023) Hepatitis C Screening negative Historical Provider HEALTH MAINTENANCE Final Result * DXA BONE DENSITY STUDY 1+ SITS AXIAL SKEL (10/27/2022 2:33 PM EDT) Anatomical Region Laterality Modality Bone Densitometr y 03/14/2022 12:0 0 PM EST Narrative 10/27/2022 5:42 PM EDT BONE DENSITY ? Lumbar Spine T-score is -0.5 ?? (SD relative to 20-29 y/o adult) Z-score is +1.3 ??(SD relative to age matched peers) This is normal by criteria defined by the WHO. Left Hip T-score is -0.3 Z-score is +0.8 This is normal by criteria defined by the WHO. Comparison exam(s): no statistically significant change in the bone density of the hip when compared to most recent bone density examination ?? Confidence level is +/-95%. Impression: Based on the World Health Organization criteria, Alis Sanchez should be classified as having normal bone density. [facility] Department of Internal Medicine recommends using National Osteoporosis Foundation (NOF) guidelines in treatment decisions related to osteoporosis. NOF guidelines suggest considering treatment for postmenopausal women and men aged 50 or older presenting with the following: History of hip or vertebral fracture. T-score less than or equal to -2.5 (DXA) at the femoral neck, total hip, or spine, after appropriate evaluation to exclude secondary causes. Low bone mass (T-score between -1.0 and -2.5 at the femoral neck or spine) AND a 10-year probability of a hip fracture greater than or equal to 3% OR a 10-year probability of a major osteoporosis-related fracture greater than or equal to 20% based on the [place]-adapted WHO algorithm Please note that all treatment decisions require clinical judgment and consideration of individual patient factors, including patient preferences, co-morbidities, previous drug use, risk factors not captured in the FRAX model (e.g., frailty, falls, vitamin D deficiency, increased bone turnover, interval significant decline in bone density) and possible under- or over-estimation of fracture risk by FRAX. Procedure Note Shona Gibson MD - 05/16/2023 BONE DENSITY Lumbar Spine T-score is -0.5 (SD relative to 20-29 y/o adult) Z-score is +1.3 (SD relative to age matched peers) This is normal by criteria defined by the WHO. Left Hip T-score is -0.3 Z-score is +0.8 This is normal by criteria defined by the WHO. Comparison exam(s): no statistically significant change in the bonedensity of the hip when compared to most recent bone density examination Confidence level is +/-95%. Impression: Based on the World Health Organization criteria, Alis Sanchez should beclassified as having normal bone density. [facility] Department of Internal Medicine recommendsusing National Osteoporosis Foundation (NOF) guidelines in treatmentdecisions related to osteoporosis. NOF guidelines suggest consideringtreatment for postmenopausal women and men aged 50 or older presentingwith the following: History of hip or vertebral fracture. T-score less than or equal to -2.5 (DXA) at the femoral neck, total hip,or spine, after appropriate evaluation to exclude secondary causes. Low bone mass (T-score between -1.0 and -2.5 at the femoral neck or spine)AND a 10-year probability of a hip fracture greater than or equal to 3% ORa 10-year probability of a major osteoporosis-related fracture greaterthan or equal to 20% based on the [place]-adapted WHO algorithm Please note that all treatment decisions require clinical judgment andconsideration of individual patient factors, including patientpreferences, co-morbidities, previous drug use, risk factors not capturedin the FRAX model (e.g., frailty, falls, vitamin D deficiency, increasedbone turnover, interval significant decline in bone density) and possibleunder- or over-estimation of fracture risk by FRAX. Dionte Gusman NP IM DXA PROCEDURES Final Resul t * Pap smear (07/05/2022) 07/05/2022 Narrative HISTORICAL TESTING LAB RESULTING AGENCY - 07/18/2022 6:41 AM EDT [id number] THINPREP PAP: NEGATIVE FOR SQUAMOUS INTRAEPITHELIAL LESION AND MALIGNANCY . ABUNDANT PARTIALLY OBSCURING ACUTE INFLAMMATORY CELLS ARE PRESENT. NOTE: ??THIS PAP TEST COULD NOT BE IMAGED UTILIZING THE IMAGING SYSTEM AND REQUIRED MANUAL REVIEW. ANIVAL KEATING(ASCP) (CASE ELECTRONICALLY SIGNED 07 16 2022) RESULT OF APTIMA HIGH RISK HPV ASSAY: HIGH RISK HPV: ??NEGATIVE (SEROTYPES 16,18,31,33,35,39,45,51,52,56,58,59,66,68) COMPLETED ON 2022-07-07 ADEQUACY: SATISFACTORY ENDOCERVICAL/TRANSFORMATION ZONE COMPONENT PRESENT. SOURCE: THINPREP PAP HPV ANY DX: ??REFLEX 16 AND 18, CERVICAL CLINICAL INFORMATION: HPV ANY DIAGNOSIS. HORMONES, PAP HX NEGATIVE, [Z01.419] Keira Martin DO LAB CYTOLOGY ORDERABLES Final Result HISTORICAL TESTING LAB RESULTING AGENCY * Colonoscopy (06/18/2019) Colonoscopy completed Anatomical Region Laterality Modality Other Historical Provider HEALTH MAINTENANCE Final Result from Last 3 Months or Most Recently Relevant to Health Maintenance Insurance [place]ICA[place] [employer] [employer] Care Teams Assessment Manager Relationship Specialty Start Date End Date Wilfredo Marin MD [address] [place] [id number] PCP - General Internal Medicine 03/07/17
--- OUTSIDE RECORDS SUMMARY | 2024-05-23 11:39 | XMS_ITS | Encounter Summary ---
Author Organization [email or web address] Address [address] [place] [address] Care Team Providers Care Angle Shear Set Up Operator Name Role Phone Wilfredo Marin MD Primary Care Provider [phone] Reason for Visit * Imaging (Routine) - Pending Review Specialty Diagnoses / Procedures Referred By Jordyn t Referred To Contact Radiology Diagnoses Fatty liver Procedures US Abdomen Limited US Abdomen Complete Wilfredo Marin MD [address] [place] [address] Phone: tel: fax: [address] Phone: tel: Referral ID Status Reason Start Date Expiration Date V isits Requested Visits Authorized [id number] Pending Review 04/22/2024 04/22/2025 1 1 Encounter Details Date Type Department Care Team (Latest Contact Info) Description 05/08/2024 9:00 AM EST - 05/08/2024 11:59 PM EST Hospital Encounter [facility]ound [facility] [address] [place] [address] Fatty liver Discharge Disposition: Home or Self Care Social History Tobacco Use Types Packs/Day Years [...] care for your loved ones. For example, childhood development teacher or elderly care for an older adult? [...] AM EST documented as of this encounter Medications at Time of Discharge aspirin 81 mg EC tablet Take 1 tablet (81 mg total) by mouth 1 (one) time each day. DILT-XR 120 mg 24 hr capsuleIndication s:Palpitations TAKE 1 CAPSULE BY MOUTH DAILY FOR 360 DAYS. 90 capsule 3 03/04/2024 dulaglutide (Trulicity) 1.5 mg/0.5 mL pen injector injection Inject 0.5 mL (1.5 mg total) under the skin every 7 (seven) days. gabapentin (NEURONTIN) 300 mg capsule Take 1 capsule (300 mg total) by mouth if needed. losartan (Cozaar) 25 mg tablet Take 0.5 tablets (12.5 mg total) by mouth at bedtime. 15 each 2 04/22/2024 metFORMIN XR (GLUCOPHAGE-XR) 500 mg 24 hr tablet Take 1 tablet (500 mg total) by mouth 1 (one) time each day. 90 tablet 03/04/2024 morphine (MSIR) 15 mg tablet Take 1 [...] (40 mg total) by mouth at bedtime. documented as of this encounter Discharge Disposition Disposition Code Departure Means Destination Home or Self Care documented in this encounter Plan of Treatment Upcoming Encounters Date Type Department Care Team (Late st Contact Info) Description 06/21/2024 11:00 AM EDT Office Visit Internal Medicine - [address] [phone] Wilfredo Marin MD [address] [place] [id number] 09/06/2024 7:40 AM EDT Office Visit [facility] - [address] [place] [phone] Meagan Alberto, DEANA [address] [place] [phone] documented as of this encounter Procedures Procedure Name Priority Date/Time Associated Diagnosis Comments US ABDOMEN LIMITED Routine 05/08/2024 9: 41 AM EST Fatty liver documented in this encounter Results * US Abdomen Limited (05/08/2024 9:41 AM [...] Signed Date: 05/08/2024 15:46 ET Workstation ID: [id number] Transcribed By: Self Edit Transcribed Date: 05/08/2024 [...] Signed Date: 05/08/2024 15:46 ET Workstation ID: [id number] Transcribed By: Self Edit Transcribed Date: 05/08/2024 15:40 ET us Wilfredo Marin MD [facility] PROCEDURES Final R esult documented in this encounter Visit Diagnoses Diagnosis Fatty liver Other chronic nonalcoholic liver disease documented in this encounter Care Teams Angle Shear Set Up Operator Relationship Specialty Start Date End Date Wilfredo Marin MD [address] [place] [id number] PCP - General Internal Medicine 03/07/17 documented as of this encounter
== END 2024-05-23 10:54 | disposition home or self-care (01) ==
LOC: HO.CT 10:53
PROVIDERS: PCP Internal Medicine; Visit Provider Hospitalist
DX: R91.8 Other nonspecific abnormal finding of lung field (principal)
CPT/HCPCS: 71250

== ENCOUNTER → 2024-05-23 10:55 | Outpatient (BNV) | payer MEDICARE, SELFPAY | PROVIDERS: PCP Internal Medicine; Visit Provider Specialist | DX: R91.8 Other nonspecific abnormal finding of lung field (principal); J43.9 Emphysema, unspecified | CPT/HCPCS: 71250 ==

== ENCOUNTER 2024-06-03 10:22 | Outpatient (AMB) | payer MEDICARE, SELFPAY ==
--- NOTE | 2024-06-03 10:23 | MHC.OFFVIS ---
Vital Signs 06/03/24 10:24 Height 5 ft 6 in Weight 180 lb 12.465 oz BMI 29.2 BP 106/68 Blood Pressure Location Rt brachial Position Sitting Pulse 67 Pulse Source Pulse Oximeter Pulse Oximetry (%) 98 Oxygen Delivery Method Room Air Intake Visit Reasons: Pulmonary Nodule Allergies glipizide Allergy (Severe, Verified 06/03/24 10:29) Rash/Hives metronidazole [From Flagyl] Allergy (Severe, Verified 06/03/24 10:29) Rash/Hives Penicillins Allergy (Severe, Verified 06/03/24 10:29) Rash/Hives sitagliptin [From Januvia] Allergy (Severe, Verified 06/03/24 10:29) Rash/Hives Sulfa (Sulfonamide Antibiotics) Allergy (Severe, Verified 06/03/24 10:29) Rash/Hives HPI Comments Details: The patient is a 64-year-old woman with a known history of pulmonary nodules. Patient has undergone to surgical biopsies initially the superior segment of the left lower lobe segmentectomy and subsequently a left lower lobe lobectomy after a concerning nodule. both nodules demonstrated a pathology consistent with organizing pneumonia and non-necrotizing granulomas which is typical of hypersensitivity pneumonitis. the patient did undergo blood work ruling out connective tissue conditions an inflammatory conditions. Unfortunately, her hypersensitivity panel was not done as ordered. Patient has been complaining of chest discomfort. Her left sided pleural effusion did clear and her last chest x-ray. Still has chest pains which is likely due to neuropathy at the area on her surgery. Denies any radiations, / in [facility]. She has tried [id number] medications without any significant improvement. Will try Lidoderm patch to the area in the meantime. The patient is also using gabapentin. Initially she was scheduled to take it 3 times a day, but, then recommended that she takes it once a day. The patient then had a PET scan and also she made an appointment to be evaluated at [facility]. Recently she had an evaluation. Today reviewed the reports of the previous pathologies demonstrating the non-necrotizing granulomas in the organizing pneumonia. The patient will be getting the actual pathology to [facility] in order for them to be able to visualize the slides and make the year own conclusion on the biopsy. The did bring up the question of non tuberculosis mycobacterial infections. In the meantime the patient did not tolerate the CellCept because of adverse effects. She did tolerate the prednisone that was given to her afterwards and that did relieve some of the discomfort. The patient did have the recent biopsy on the left mass. She was given Percocet for pain. The pain is significant. Unfortunately the Percocet is make her feel nauseous and she cannot tolerate them. She will talk to her primary care doctor on Monday regarding using oxycodone by itself that she seems to tolerate well. I will provide her with several tablets of the oxycodone to tie her over the weekend or for her to be able to function after the biopsy. The patient understands that if the chest pain gets worse or if her breathing gets worse she needs to go back to the ER to be evaluated for pneumothorax or other issues. 08/12/2022 the patient is here for pulmonary has follow-up visit. The patient overall feels a lot better. She is tolerating the CellCept at a lower dose. She is to be affecting beneficial. He is also seeing pain specialist and is currently on a pain patch that is also helping control the pain. The patient was supposed to have a chest x-ray but was not able to do it because she did not have enough time. Clinically the patient doing well I did give her an x-ray sleeping she is going to have it done closer to home. In regards to the medication she is going to continue with current dose. We do need to check her CBC and also LFTs and chemistries to make sure that she is tolerating the medicine. In addition to that will plan to do another x-ray when she comes back in the fall. 12/09/2022 the patient is here for a pulmonary follow-up visit. The patient is having significant issues with dizziness. She has been following closely with the pain management Clinic. She was started on a new opiate and she is having significant dizziness. In the office she has been very dizzy having to hold her 's arm. We did the orthostatic blood pressures come up but, the patient was not orthostatic actually blood pressure is little on the high side. She does take blood pressure medications. She will talk to the pain management Clinic regarding her symptoms as this is likely an adverse effect from the medication. The patient also has been taking the CellCept. Seems to be tolerating it well. Will go ahead and request a CT scan of the chest to address her inflammatory interstitial lung disease. If the area looks the same or worse will have to increase the CellCept. will have to wait for those results. In the meantime the patient has continued to have significant weight loss. 03/09/2023 the patient is here for a hospital follow-up visit. She was recently hospitalized at [facility] back in January of this year. She did have an elevated brain nitrate peptide. She had cardiac enzymes which were negative. She did undergo a stress test that demonstrated a fix defects suggesting an old myocardial infarction. She does have follow-up with cardiology soon to further discuss the findings and further evaluation. In the meantime she also had a CTA ruling out pulmonary emboli she did have the findings of her masslike density in the left lower lobe and also smaller nodular density in the right hemithorax. Compared to previous findings the area does not look as concerning. She has been on the CellCept lower dose of 500 twice a day. Will go ahead and increase that dose to treat her for her interstitial lung disease which in this case is a combination of cryptogenic organizing pneumonia versus a hypersensitivity type of reaction. 06/07/2023 patient is here for pulmonary follow-up visit. She is finally better. She was exposed to other sick contacts, grandchild. She developed cold-like symptoms. Her COVID test was negative. She did not require any prescription medications. After few days she did feel better. Her breathing is also better. She had a cardiac workup. This point she is on cardioprotective medications. In the meantime she did have a CT scan of the chest that we personally reviewed. It appears that the nodular densities in the left lower lobe have improved. She does have some residual scarring that area. Her the pulmonary nodules are slightly better or stable. Overall seems to be responding well to the current dose mycophenolate 1 g b.i.d.. She is going to continue this dose. She does have to get blood work to make sure that she is tolerate medication well. 12/08/2023 the patient is here for a pulmonary follow-up visit. The patient overall has been doing well. She has been losing weight but is likely medication related. She is also making lifestyle changes. The patient did have a recent CT scan of the chest which I personally reviewed with her. The masslike density has significantly improved. She is tolerating the mycophenolate 1 g twice a day. Her blood work has been done elsewhere. She will need to have additional blood work to make sure she is tolerating the medication well. At this point she continues to respond to the immunomodulator therapy for her inflammatory process. She also continues with respiratory medications with good effect. Patient overall doing well. Follow-up in 6 months. Plan to repeat the CT scan a year from her last. 06/03/2024 the patient is here for a pulmonary follow-up visit. Overall she is doing okay. She still complains of pleuritic discomfort on the left base and also some shortness breath with activity. But she otherwise has been feeling better from a respiratory standpoint. She has been tolerating the mycophenolate. She has had issue with financial cost of her medications and sometimes she is not able to get all her medications which is an issue 0 by itself. But it seems like the mycophenolate has been affecting beneficial. She did have a recent CT scan of the chest we did personally review it. The masslike density that she has had in his left lower lobe for years have subsequently subsided only leaving a scar. Other nodular densities have also resolved which is reassuring. Will try to decrease the medication some to 1 g a day. But still will be helpful for her to get assistance with her medications in order to make sure that she gets all her medications as prescribed. Will continue to monitor closely with the improvement of the CT scans will hold off on any further imaging. She should have blood work with her primary care to make sure that her LFTs and after electrolytes are stable kidneys are stable while on the mycophenolate. The patient will follow-up in the fall. She has not any issues she will call for an earlier assessment. [facility] Medical History (Updated 06/07/23 @ 18:51 by Natanael Woods MD) Lung mass Pericardial effusion Asthma Interstitial pneumonia with autoimmune features Abnormal PET of left lung Cryptogenic organizing pneumonia Hypersensitivity pneumonitis Post-thoracotomy pain syndrome Pulmonary nodules Social History (Updated 06/03/24 @ 10:28 by Mary Hairston CMA) Patient Tobacco Use Status: Former Tobacco user Review of Systems Const Denies night sweats and Reports weight loss ENT Denies change in voice, Reports dizziness, Denies lip swelling, Denies mouth pain, Reports nasal congestion, Reports nasal discharge and Denies tongue swelling Card Denies chest pain and Denies dyspnea on exertion Resp Denies change in phlegm color, Denies chest congestion, Reports cough, Denies hemoptysis, Denies excessive phlegm production, Denies pain on inspiration, Denies pain with cough and Denies dyspnea on exertion GI Denies abdominal pain Musc Reports myalgias Neuro Denies Neuro-related abnormal movements and Reports dizziness Psych Denies no additional complaints Brandon/Lymph Denies easy bleeding and Denies lymphadenopathy Aller/Immun Denies lip swelling and Denies tongue swelling Physical Exam Vital Signs: Last Vital Signs Pulse 67 06/03/24 10:24 BP 106/68 06/03/24 10:24 Pulse Ox 98 06/03/24 10:24 Oxygen Delivery Method Room Air 06/03/24 10:24 BMI result Body Mass Index 29.2 Const General: alert Neck Neck: Yes normal visual inspection, Yes full ROM and Yes no lymphadenopathy Chest Chest palpation & inspection: no tenderness Resp Effort & Inspection: normal respiratory effort Auscultation: diminished lung sounds Cardio Rate: regular rate Rhythm: regular rhythm Heart sounds: S1 normal heart sound present and S2 normal heart sound present GI Palpation (GI): Soft to palpation and nontender Auscultation: normal bowel sounds Skin General skin exam: rashes and/or lesions noted Results Reviewed Results Reviewed: Assessment & Plan Assessment & Plan (1) Interstitial pneumonia with autoimmune features: Comment: versus sarcoid Code(s): J84.9 - Interstitial pulmonary disease, unspecified Category: Medical (2) Cryptogenic organizing pneumonia: Comment: AFOP Code(s): J84.116 - Cryptogenic organizing pneumonia Category: Medical (3) Post-thoracotomy pain syndrome: Code(s): G89.12 - Acute post-thoracotomy pain Category: Medical (4) Pulmonary nodules: Code(s): R91.8 - Other nonspecific abnormal finding of lung field Category: Medical (5) Asthma: Comment: asthma COPD overlap syndrome Code(s): J45.909 - Unspecified asthma, uncomplicated Category: Medical Qualifiers: Asthma complication type: uncomplicated Asthma persistence: persistent Asthma severity: moderate Qualified Code(s): J45.40 - Moderate persistent asthma, uncomplicated (6) Hypersensitivity pneumonitis: Comment: based on biopsies with organizing pneumonia and granulomas due to HSP. R/O connective tissue disease, with labs and exam. Not consistent with sarcoid, although nodular sarcoid is in the differential. Code(s): J67.9 - Hypersensitivity pneumonitis due to unspecified organic dust Category: Medical (7) Lung mass: Comment: resolved Code(s): R91.8 - Other nonspecific abnormal finding of lung field Category: Medical Plan Contiue JAMEL as needed contiue Flovent HFA/Anoro decrease Cellcept 1000mg daily Bloodwork i pain management F/U 6-8 months Coding Level of Care Code Est Pt Level 4 (56089) Complex EM visit Add On G2211 Diagnoses Interstitial pneumonia with autoimmune features J84.9 Cryptogenic organizing pneumonia J84.116 Post-thoracotomy pain syndrome G89.12 Pulmonary nodules R91.8 Moderate persistent asthma without complication J45.40 Asthma complication type: uncomplicated Asthma persistence: persistent Asthma severity: moderate Hypersensitivity pneumonitis J67.9 Lung mass R91.8 Time Spent (min) 17
[2024-06-03 10:24] VITALS: BP 106/68; PULSE 67; O2SAT 98; BMI 29.2
--- OUTSIDE RECORDS SUMMARY | 2024-06-03 11:35 | XMS_ITS | Encounter Summary ---
Author Organization [facility] Address [address] [place] [address] Care Team Providers Care Revenue Director Name Role Phone Wilfredo Marin MD Primary Care Provider [phone] Reason for Referral * Consultation (Routine) - Pending Review Specialty Diagnoses / Procedures Referred By Jordyn fuentes Referred To Contact Cardiology Diagnoses Disease of cardiovascular system Wilfredo Marin MD [address] [place] [address] Phone: tel: fax: Referral ID Status Reason Start Date Expiration Date Visits Requested Visits Authorized [id number] Pending Review Specialty Services Required 05/21/2024 05/21/2025 1 1 Reason for Visit * Reason Onset Date Comments Referral 05/21/2024 Encounter Details Date Type Department Care Team (Late st Contact Info) Description 05/21/2024 Telephone Internal Medicine - [address] [phone] Wilfredo Marin MD [address] [place] [id number] Referral Social History Tobacco Use Types Packs/Day [...] for your loved ones. For example, child protection specialist or elderly care for an older adult? [...] What insurance does the patient have today? [facility] Referrals cannot be processed if the insurance is not accurate. If the insurance listed above in red is NO BILLING INFORMATION FOUND FOR THIS ENCOUTNER The patients correct insurance must be obtained and registered in [facility] or their referral can not be processed. Is this a retro request? no. If yes for what date of service do you need the retro referral? not applicable Who is calling to request this referral? [facility] cardiology If the caller is not the patient, what is their name? N/a faxed to office Ask the patient WHO referred them to this specialty: Patient was seen by external specialist Cardiology who has now referred them to this specialty FIRST and LAST NAME of SPECIALIST PATIENT is seeing: n/a [facility] NPI # [id number] What specialty is this? Cardiology DIAGNOSIS Patient is being seen for (Not a body part or a procedure): pt will be scheduled at [facility] for a Coronary CTA and needs a PCP ins. Referral Have you seen this SPECIALIST for this PROBLEM/DX before? If YES, when? No Have you checked REVIEW or the APPT DESK to see if this referral has already been done or has visits left? yes Is this visit: Initial Visit Address of Specialist: [address] [place] [address] Phone # of Specialist: [phone] Fax #: (if applicable): [phone] Does patient have an appointment scheduled?: no Date of appointment- (including a retro-request): TBD Is this appointment related to: documented in this encounter Plan of Treatment Upcoming Encounters Date Type Department Care Team (Late st Contact Info) Description 06/21/2024 11:00 AM EDT Office Visit Internal Medicine - [address] [phone] Wilfredo Marin MD [address] [place] [address] 09/06/2024 7:40 AM EDT Office Visit [facility] - [address] [facility] [address] [place] [phone] Meagan Alberto NP [address] [place] [phone] Scheduled Referrals Name Type Priority Associated Diagnoses Orde r Schedule Ambulatory referral to Cardiology Outpatient Referral Routine Disease of cardiovascular system 1 Occurrences starting 05/21/2024 until 05/21/2025 documented as of this encounter Visit Diagnoses Diagnosis Disease of cardiovascular system- Primary Unspecified cardiovascular disease documented in this encounter Care Teams Revenue Director Relationship Specialty Start Date End Date Wilfredo Marin MD [address] [place] [id number] PCP - General Internal Medicine 03/07/17 documented as of this encounter
--- OUTSIDE RECORDS SUMMARY | 2024-06-03 11:37 | XMS_ITS | Clinical Summary ---
Author Organization [facility] Address [address] [place] [address] Care Team Providers Care Educational Technician Name Role Phone Wilfredo Marin MD Primary Care Provider [phone] Allergies Active Allergy Reactions Criticality Noted Date [...] BMI Counseling 1976 Preventative Health Evaluation 1976 Colon Cancer Screening (Colonoscopy) 2003 Breast Cancer Screening (Mammogram) 2008 Shingrix-Zoster Vaccine (1 of 2) 2008 Pneumococcal Vaccine (2 of 2 - PCV) 12/04/2014 12/04/2013 DTap / Tdap / Td (2 - Td or Tdap) 05/20/2019 05/20/2009 Fall Risk Assessment 2023 Osteoporosis Screening (DEXA Scan) 2023 COVID-19 Vaccine (2 - season) 2023 06/28/2020 Influenza Vaccine (#1) 2023 0, 02/20/2019, 01/19/2018, Additional history exists RSV Adult > 60+ Yrs or (1 - 1-dose 75+ series) 2033 Hepatitis B Vaccines Aged Out No long er eligible based on patient's age to complete this topic RSV Ped < 20 months Aged Out No longe r eligible based on patient's age to complete this topic Care Teams Educational Technician Relationship Specialty Start Date End Date Wilfredo Marin MD [address] [place] [address] PCP - General Internal Medicine 03/02/19
--- OUTSIDE RECORDS SUMMARY | 2024-06-03 11:37 | XMS_ITS | Encounter Summary ---
Author Organization [facility] Address [address] [place] [address] Care Team Providers Care Manager Intel Name Role Phone Wilfredo Marin MD Primary Care Provider [phone] Reason for Visit * Reason Onset Date Comments faxed order 05/31/2024 Encounter Details Date Type Department Care Team (Late st Contact Info) Description 05/31/2024 [facility] [address] [place] [phone] Wilfredo Marin MD [address] [place] [phone] faxed order Social History Tobacco Use Types Packs/Day Years [...] as of this encounter Progress Notes * Jane Zavala MA - 05/31/2024 10:29 AM EST Will bring order to provider once received. * Destiney Zuleta - 05/31/2024 8:44 AM EST Caller requesting call back from provider: Is the caller the patient? no If caller is not the patient, what is the callers name? Katie Callers relationship to patient? [facility] Reason for call back: office calling state they are going to be faxing over an order, BSR gave the fax [phone]. They state they need this back as soon as possible. Sent originally on 05/20. Patient is having imaging done Caller offered to speak with the nurse for assistance: YES Response: Patient offered to speak with nurse for assistance and patient agreed. Message forwarded to nurse. documented in this encounter Plan of Treatment Upcoming Encounters Date Type Department Care Team (Late st Contact Info) Description 06/21/2024 11:00 AM EDT Office Visit Internal Medicine - [facility] [address] [place] [address] Wilfredo Marin MD [address] [place] [address] 09/06/2024 7:40 AM EDT Office Visit [facility] - [facility] [address] [place] [phone] Meagan Alberto NP [address] [place] [phone] documented as of this encounter Visit Diagnoses Not on filedocumented in this encounter Care Teams Manager Intel Relationship Specialty Start Date End Date Wilfredo Marin MD [address] [place] [address] PCP - General Internal Medicine 03/07/17 documented as of this encounter
--- OUTSIDE RECORDS SUMMARY | 2024-06-03 11:37 | XMS_ITS | Encounter Summary ---
Author Organization Alerts Address [address] [place] [address] Care Team Providers Care Weight Caller Name Role Phone Wilfredo Marin MD Primary Care Provider [phone] Reason for Referral * Imaging (Routine) - Pending Review Specialty Diagnoses / Procedures Referred By Jordyn fuentes Referred To Contact Radiology Diagnoses Fatty liver Diabetes 1.5, managed as type 2 (CMS/HCC) H/O acute myocardial infarction Procedures MR Abdomen wo and w Contrast Jaden Christensen PA [address] [address] Phone: tel: fax: [facility] [address] [place] [address] Phone: tel: Referral ID Status Reason Start Date Expiration Date V isits Requested Visits Authorized [id number] Pending Review 05/15/2024 05/15/2025 1 1 Reason for Visit * Reason Comments Fatty Liver * Consultation (Routine) - Authorized Specialty Diagnoses / Procedures Referred By Jordyn fuentes Referred To Contact Gastroenterology Diagnoses Fatty liver Wilfredo Marin MD [address] [place] [address] Phone: tel: fax: Jaden Christensen PA [address] [place] [address] Phone: tel: fax: Referral ID Status Reason Start Date Expiration Date Visits Requested Visits Authorized [id number] Authorized Specialty Services Required 04/22/2024 04/22/2025 12 12 Encounter Details Date Type Department Care Team (Late st Contact Info) Description 05/15/2024 10:40 AM EST Office Visit Gastroenterology - [place] [address] [place] [phone] Jaden Christensen PA [address] [place] [address] Diabetes 1.5, managed as type 2 (CMS/HCC) [...] care for your loved ones. For example, professor of early childhood education or elderly care for an older adult? [...] be sent through Care Everywhere. * A1c (Grenadian) * Diabetes: Type 2 (Grenadian) * Diabetes: Type 2: General Info (Grenadian) * NAFLD: Nonalcoholic Fatty Liver Disease ([place]adian) * Coronary Artery Disease ([place]adian) documented in this encounter Progress Notes * [...] 01/07/2020 Hypertension 11/04/2019 Diabetes mellitus with cataract ([facility]) 11/08/2018 Medial meniscus tear 05/21/2017 DM type 2 with diabetic peripheral neuropathy ([facility]) 12/30/2013 CKD (chronic kidney disease) stage 2, GFR 60-89 ml/min 12/30/2013 Urolithiasis 06/13/2013 Vertigo 12/21/2011 Hyperlipidemia 06/27/2006 Phlebitis and thrombophlebitis of other sites 01/09/2006 DM (diabetes mellitus), type 2 with renal complications ([facility]) 05/27/2005 Chronic back pain 05/27/2005 SOCIAL HISTORY: [...] Signed Date: 05/08/2024 15:46 ET Workstation ID: [id number] Transcribed By: Self Edit Transcribed Date: 05/08/2024 15:[address] Results for orders placed in visit on 08/21/19 CT CHEST W [facility] Diagnostic Imaging Department [address] [place] [id number] Patient: JU WALTON /Age/Sex: 1960 - 59 - F Unit#: [id number] Location/Status: SPDICAT/REG CLI Mnemonic/Ordering Site: CTCHESTW/SPCT Ordering Physician: WALTER MCADAMS MD CT Chest W - 08/21/19 - INDICATION: HX LUNG MASS TECHNIQUE: CT scan of the chest was obtained with the administration of 90cc Isovue 370 intravenous contrast media. Multiplanar reformatted images were obtained. Scanner: Palette Dose reduction technique: ASIR (Adaptive statistical iterative [...] nodule measuring up to 2 cm. Code: 30278, G9637, G9557, G9551 Dictating Physician: ANJEL LÓPEZ [...] Signed Date: 05/08/2024 15:46 ET Workstation ID: [id number] Transcribed By: Self Edit Transcribed Date: 05/08/2024 15:40 ET IMPRESSION: 1. Diabetes 1.5, managed as type 2 (CMS/HCC) 2. Fatty liver 3. H/O acute myocardial infarction PLAN: 1. Fatty liver, diabetes, history of an silent [place] last year Patient states that she had been informed that she did have a silent [place] last year and will continueto follow-up with [...] AM EDT [facility] [address] [place] [phone] Wilfredo Marin MD [address] [place] [address] 09/06/2024 7:40 AM EDT Office Visit [facility] - [address] [place] [phone] Meagan Alberto, DEANA [address] [place] [address] Scheduled Orders Name Type Priority Associated Diagnoses Orde r Schedule MR Abdomen wo and w Contrast Imaging Routine Fatty liver Diabetes 1.5, managed as type 2 (CMS/HCC) H/O acute myocardial infarction Expected: 05/15/2024, Expires: 05/15/2025 documented as of this encounter Results * PRETTY fibrotest liver diease (05/15/2024 11:18 AM EST) Pathologist [facility] PRETTY FibroSure See Below 05/24/2024 7:40 AM EST [facility] Comment: PRETTY FibroSure(R) Plus SEE REPORT UNDER SEPARATE COVER. REPORT WILL BE SENT TO THE ORDERING LABORATORY VIA PRINTER OR FAX. ADDITIONAL COPIES OF THE ORIGINAL REPORT MAY ALSO BE OBTAINED BY CALLING [facility] CLIENT SERVICES at [phone] Blood Venous blood specimen / Unknown Venipuncture / Unknown 05/15/2024 11:18 AM EST 05/15/2024 11:18 AM EST us Jaden [facility] BLOOD ORDERABLES Edited Res ult - Final [facility] [address] [place] [address] * Comprehensive metabolic panel (05/15/2024 11:18 AM EST) Pathologist [facility] Sodium 138 133 - 145 mmol/L LAB CHEMISTRY METHOD 05/15/2024 6:31 PM EST [facility] Potassium 4.3 3.5 - 5.5 mmol/L LAB CHEMISTRY METHOD 05/15/2024 6:31 PM EST [facility] Chloride 105 96 - 110 mmol/L LAB CHEMISTRY METHOD 05/15/2024 6:31 PM EST [facility] CO2 30 21 - 32 mmol/L LAB CHEMISTRY METHOD 05/15/2024 6:[address] [facility] Anion Gap 3 3 - 11 LAB CHEMISTRY METHOD 05/15/2024 6:[address] [facility] Glucose 89 70 - 100 mg/dL LAB CHEMISTRY METHOD 05/15/2024 6:[address] [facility] BUN 20 5 - 25 mg/dL LAB CHEMISTRY METHOD 05/15/2024 6:[address] [facility] Creatinine 0.81 0.50 - 1.10 mg/dL LAB CHEMISTRY METHOD 05/15/2024 6:[address] [facility] eGFR 81 >=60 mL/min/1. 73m2 LAB CHEMISTRY METHOD 05/15/2024 6:[address] [facility] Comment:Calculation based on the??Chronic Kidney Disease Epidemiology Collaboration (CKD-EPI) equation refit??without adjustment for race. BUN/Creatinine Ratio 24.7 LAB CHEMISTRY METHOD 05/15/2024 6:[address] [facility] Calcium 9.8 8.5 - 10.5 mg/dL LAB CHEMISTRY METHOD 05/15/2024 6:[address] [facility] AST (SGOT) 11 10 - 42 unit/L LAB CHEMISTRY METHOD 05/15/2024 6:[address] [facility] ALT (SGPT) 19 10 - 60 unit/L LAB CHEMISTRY METHOD 05/15/2024 6:[address] [facility] Alkaline Phosphatase 71 42 - 121 unit/L LAB CHEMISTRY METHOD 05/15/2024 6:[address] [facility] Total Protein 7.2 6.0 - 8.0 g/dL LAB CHEMISTRY METHOD 05/15/2024 6:[address] [facility] Albumin 3.8 3.2 - 5.0 g/dL LAB CHEMISTRY METHOD 05/15/2024 6:[address] [facility] Total Bilirubin 0.4 0.0 - 1.4 mg/dL LAB CHEMISTRY METHOD 05/15/2024 6:31 PM EST [facility] Blood Venous blood specimen / Unknown Venipuncture / Unknown 05/15/2024 11:18 AM EST 05/15/2024 11:18 AM EST us Jaden [facility] BLOOD ORDERABLES Final Resu lt [facility] [address] [place] [address], documented in this encounter Visit Diagnoses Diagnosis Diabetes 1.5, managed as type 2 (CMS/HCC)- Primary Fatty liver Other chronic nonalcoholic liver disease H/O acute myocardial infarction documented in this encounter Orders Outpatient Referral Count Last Ordered Date Fir st Ordered Date AMB REFERRAL TO GASTROENTEROLOGY 1 05/15/19 25 documented in this encounter Care Teams Weight Caller Relationship Specialty Start Date End Date Wilfredo Marin MD [address] [place] [address] PCP - General Internal Medicine 03/07/17 documented as of this encounter
--- OUTSIDE RECORDS SUMMARY | 2024-06-03 11:37 | XMS_ITS | Encounter Summary ---
Author Organization [employer] Business Plan Address [address] [place] [address] Care Team Providers Care Dermatology Sales Representative Name Role Phone Wilfredo Marin MD Primary Care Provider [phone] Reason for Referral * Imaging (Routine) - Pending Review Specialty Diagnoses / Procedures Referred By Jordyn fuentes Referred To Contact Radiology Diagnoses Chest pain, unspecified type Coronary artery disease due to calcified coronary lesion Procedures CT Angio Heart w 3D Imaging/Function Meagan Alberto NP [address] [address] Phone: tel: fax: [address] [address] Phone: tel: Referral ID Status Reason Start Date Expiration Date V isits Requested Visits Authorized [id number] Pending Review 05/06/2024 05/06/2025 1 1 Reason for Visit * Reason Comments Follow-up * Consultation (Routine) - Authorized Specialty Diagnoses / Procedures Referred By Jordyn fuentes Referred To Contact Cardiology Diagnoses Disease of cardiovascular system Wilfredo Marin MD [address] [place] [address] Phone: tel: fax: [facility] - [facility] [address] [facility] [address] [place] [address] Phone: tel: fax: Referral ID Status Reason Start Date Expiration Date Visits Requested Visits Authorized [id number] Authorized Specialty Services Required 04/26/2024 04/26/2025 12 12 Encounter Details Date Type Department Care Team (Late st Contact Info) Description 05/06/2024 1:40 PM EST Office Visit [facility] [address] [facility] [address] [place] [phone] Meagan Alberto NP [address] [place] [address] Chest pain, unspecified type (Primary [...] care for your loved ones. For example, healthcare prof or elderly care for an older adult? [...] this encounter Progress Notes * Meagan Alberto, CARPENTRY TEACHER - 05/06/2024 1:40 PM ESTAssociated Problem(s): Hypertension [...] Heart w 3D Imaging/Function; Future * Meagan Alberto, CARPENTRY TEACHER - 05/06/2024 1:40 PM EST Images from the original note were not included. [facility] PRIMARY CNA INSTRUCTOR: Austin Juarez MD PCP: Wilfredo Marin MD [...] sinus bradycardia. Average ventricular heart rate 62 bpm. No sustained atrial or ventricular arrhythmias or pauses noted. January 2023 underwent stress testing at [facility] in the setting of chest discomfort. There [...] April 01, 2024 the patient presented to [facility] emergency room with complaints of chestheaviness. Troponin [...] in4-5 months at same time as her Brentgretel. As per AHA guidelines and previously established plan of care by Dr. Austin Juaerz MD, we discussed the following today: 1. Chest pain, unspecified type 2. Coronary artery disease due to calcified coronary lesion 3. Hypertension, unspecified type [facility] Cosigned by Austin Juarez MD at 05/06/2024 5:43 PM EST documented in this encounter Plan of Treatment Upcoming Encounters Date Type Department Care Team (Late st Contact Info) Description 06/21/2024 11:00 AM EDT [facility] [address] [place], [place] [phone] Wilfredo Marin MD [address] [place] [address] 09/06/2024 7:40 AM EDT Office Visit [facility] - [address] [place] [address] Meagan Alberto NP [address] [place] [address] Scheduled Orders Name Type Priority [...] GEMUSE QTc 402 ms GEMUSE P Wave [place] 79 degrees GEMUSE R [place] 72 degrees GEMUSE T [place] 65 degrees GEMUSE ECG Interpretation Sinus bradycardia with sinus arrhythmia When compared with ECG of 12-JUN-2020 14:46, Premature atrial complexes are no longer Present Confirmed by MD Larry, Austin ([id number]) on 05/07/2024 1:00:58 PM GEMUSE 05/06/2024 1:45 PM EST 05/07/2024 1:00 PM EST us Meagan Alberto NP ECG ORDERABLES Edited Result - Final GEMUSE documented in this encounter Visit Diagnoses Diagnosis Chest pain, unspecified type- Primary Coronary artery disease due to calcified coronary lesion Hypertension, unspecified type documented in this encounter Care Teams Dermatology Sales Representative Relationship Specialty Start Date End Date Wilfredo Marin MD [address] [place] [address] PCP - General Internal Medicine 03/07/17 documented as of this encounter
--- OUTSIDE RECORDS SUMMARY | 2024-06-03 11:37 | XMS_ITS | Clinical Summary ---
Author Organization [address] Building Address [address] [place] [phone] Phone Care Team Providers Care Exterminator Name Role Phone Wilfredo Marin MD Primary Care Provider [phone] Allergies Active Allergy Reactions Criticality Noted Date Comments Metronidazole Rash Medium 03/12/2024 Glipizide 11/08/2018 Mycophenolate Mofetil Palpitations High 06/16/2020 Penicillin Nausea And Vomiting Medium 03/12/2024 Pregabalin Headache Medium 12/24/2010 Sitagliptin Rash,Other Low 11/26/2018 Sulfa (Sulfonamide Antibiotics) 05/11 Medications DILT-XR 120 mg 24 hr capsuleIndicat ions:Palpitati ons TAKE 1 CAPSULE BY MOUTH DAILY FOR 360 DAYS. 90 capsule 3 4 Active simvastatin (ZOCOR) 40 mg tablet Take [...] by mouth at bedtime. 15 each 2 5 Active metFORMIN XR (GLUCOPHAGE-XR ) 500 mg 24 hr tablet TAKE 1 TABLET BY MOUTH 1 TIME EACH DAY. 90 tablet 1 5 Active metFORMIN XR (GLUCOPHAGE-XR ) 500 mg 24 hr tablet Take 1 tablet (500 mg total) by mouth 1 (one) time each day. 90 tablet 4 05/31/19 25 Discontinued Active Problems Problem Noted Date Diagnosed Date [...] Overview (04/22/2024): 01/2023 nuclear stress test from [facility] showed a small, mostly fixed mild perfusion [...] Found on CT scan at ED at [facility] on 06/12/2020 S/P lobectomy of lung 01/07/2020 [...] ml/min 12/30/2013 Urolithiasis 06/13/2013 Overview (04/22/2024): Sono 3/14 Vertigo 12/21/2011 Hyperlipidemia 06/27/2006 Overview (04/22/2024): Last Assessment & Plan: LDL somewhat above target with presumed CAD based on non-invasive testing. Continue statin at current dose given concurrent CCB use. Dietary modification and exercise will help as well. If her LDL is elevated on next check, can change statin to Crestor. Phlebitis and thrombophlebitis of other sites Overview (04/22/2024): 1987; groin; s/p childbirth [facility] update DM (diabetes mellitus), type 2 with renal compli cations 05/27/2005 Chronic back pain 05/27/2005 Overview (04/22/2024): [facility] update Encounters Date Type Department Care Team Description 06/02/2024 Telephone Internal Medicine - [facility] [address] [facility] [place] [address] Wilfredo Marin MD 05/31/2024 Telephone Internal Medicine - [facility] [address] [place] [address] Wilfredo Marin MD faxed order 05/21/2024 Telephone Internal Medicine - [facility] [address] [place] [address] Wilfredo Marin MD Referral 05/20/2024 Telephone [facility] - [facility] 102 300 [facility] 102 [place] [phone] Meagan Alberto NP Testing (Auth Coronary CTA) 05/15/2024 10:40 AM EST Office Visit Gastroenterology - [place] [address] [facility] 200 [place] [phone] Jaden Christensen, PA Diabetes 1.5, managed as type 2 (CMS/HCC) (Primary Dx); Fatty liver; H/O acute myocardial infarction 05/08/2024 9:00 AM EST - 05/08/2024 11:59 PM EST Hospital Encounter Ultrasound - [facility] [address] [place], [place] [address], [place] [phone] Fatty liver Discharge Disposition: Home or Self Care 05/06/2024 1:40 PM EST Office Visit [facility] [address] 300 [facility] 154 [place] [phone] Meagan Alberto NP Chest pain, unspecified type (Primary Dx); Coronary artery disease due to calcified coronary lesion; Hypertension, unspecified type 04/29/2024 Telephone Internal Medicine - [address] [phone] Wilfredo Marin MD prior authorization 04/25/2024 Telephone Internal Medicine - [address] [phone] Wilfredo Marin MD Referral 04/22/2024 10:30 AM EST [facility] [address] [place], [place] [address], [place] [phone] Wilfredo Marin MD Chest pain, unspecified type (Primary Dx); Hypertension, unspecified type; Fatty liver; Diabetes mellitus with cataract ([facility]/HCC) 04/02/2024 [facility] [address] [place] [address] Jane Zavala MA 04/01/2024 Telephone [facility] 154 300 [facility] 154 [place] [address] Austin Juarez MD Hospitalized (FYI ) 03/27/2024 Telephone Internal Medicine - [address] [phone] Wilfredo Marin MD Medication Problem; provider call back 03/12/2024 11:00 AM EST [facility]med[facility] [address] [place] [address] Medicare annual wellness visit, subsequent (Primary Dx) 03/11/2024 Telephone [facility] - [facility] [address] [facility] [facility] [place] [address] Mila Pacheco [place] Medicare Annual Wellness Visit [...] Site/Laterality Comments OTHER SURGICAL HISTORY 06/2007 PROCEDURE: GA ECHO TRANSTHORAC R-T 2D W/WO M-MODE REC COMP; COMMENT: neg SECTION PROCEDURE: GA DELIVERY ONLY; COMMENT: x 3 TONSILLECTOMY ADENOIDECTOMY, BILATERAL MYRINGOTOMY AND TUBES PROCEDURE: GA TONSILLECTOMY & ADENOIDECTOMY <AGE 10; COMMENT: as achild COLONOSCOPY 07/21/19 10 PROCEDURE: HISTORICAL COLONOSCOPY; COMMENT: normal; repeat in ten years OTHER SURGICAL HISTORY 03/09/20 16 PROCEDURE: GA RMVL LUNG XCP TOT PNEUMONECTOMY SLEEVE LOBECTOMY ESOPHAGOGASTRODUODENOSCOPY 07/20/19 18 PROCEDURE: GA ESOPHAGOGASTRODUODENOSCOPY TRANSORAL DIAGNOSTIC; COMMENT: reactive antral gastropathy; biopsies negative for Helicobacter pylori. ESOPHAGOGASTRODUODENOSCOPY PROCEDURE: GA EGD TRANSORAL BIOPSY SINGLE/MULTIPLE; COMMENT: Performed June [...] 11/08/2018 DX:Cataract Diabetes mellitus with catar act ([facility]) 11/08/2018 DX:Diabetes mellitus with ca taract ([facility]) Diverticulosis DX:Diverticulosi s Heartburn DX:Heartburn Abdominal pain [...] Sarcoidosis DX:Sarcoidosis Covid 10/13/2021 DX:COVID; COMMEN T: [facility] + 10/12/21 Nausea and vomiting DX:Nausea [...] AM EDT Office Visit Internal Medicine - [address] [phone] Wilfredo Marin MD [address] [place] [address] 09/06/2024 7:40 AM EDT Office Visit [facility] - [facility] [address] [facility] [address] [place] [address] Meagan Alberto NP [address] [place] [address] Health Maintenance Due Date Last [...] 05/15/2025 05/15/2024, 05/01/2024, 02/12/2024, Additional history exists Breast Cancer Screening 02/08/2026 02/09/20, 02/09/2024, 01/31/2023, [...] type 2 (CMS/HCC) H/O acute myocardial infarction PRETTY FIBROSURE Routine 05/15/2024 11:18 AM EST Fatty liver [...] PM EDT Encounter for screening for osteoporosis COLONOSCOPY Routine 06/18/2019 from Last 3 Months or Most Recently Relevant to Health Maintenance Results * PRETTY fibrotest liver diease (05/15/2024 11:18 AM EST) [facility] PRETTY FibroSure See Below 05/24/2024 7:40 AM EST [facility] Comment: PRETTY FibroSure(R) Plus SEE REPORT UNDER SEPARATE COVER. REPORT WILL BE SENT TO THE ORDERING LABORATORY VIA PRINTER OR FAX. ADDITIONAL COPIES OF THE ORIGINAL REPORT MAY ALSO BE OBTAINED BY CALLING [facility] at [phone] Blood Venous blood specimen / Unknown Venipuncture / Unknown 05/15/2024 11:18 AM EST 05/15/2024 11:18 AM EST us [facility] BLOOD ORDERABLES Edited Res ult - Final [facility] [address] [place] [address] * (ABNORMAL) CBC auto differential (05/15/2024 11:18 AM EST) [facility] WBC 6.5 4.8 - 10.8 K/mcL LAB HEMETOLOGY METHOD 05/15/2024 2:30 PM EST [facility] RBC 4.60 3.80 - 4.80 M/mcL LAB HEMETOLOGY METHOD 05/15/2024 2:30 PM EST [facility] Hemoglobin 12.7 11.5 - 16.0 g/dL LAB HEMETOLOGY METHOD 05/15/2024 2:30 PM EST [facility] Hematocrit 38.3 35.0 - 47.0 % LAB HEMETOLOGY METHOD 05/15/2024 2:[address] [facility] MCV 83.3 79.0 - 98.0 FL LAB HEMETOLOGY METHOD 05/15/2024 2:[address] [facility] MCH 27.6 27.0 - 32.0 pcg LAB HEMETOLOGY METHOD 05/15/2024 2:[address] [facility] MCHC 33.2 32.0 - 37.0 g/dL LAB HEMETOLOGY METHOD 05/15/2024 2:[address] [facility] RDW 14.5 11.0 - 15.0 % LAB HEMETOLOGY METHOD 05/15/2024 2:[address] [facility] Platelets 254 130 - 400 K/mcL LAB HEMETOLOGY METHOD 05/15/2024 2:[address] [facility] MPV 11.5(H) 7.0 - 11.0 FL LAB HEMETOLOGY METHOD 05/15/2024 2:[address] [facility] NRBC 0.0 <1.0 % LAB HEMETOLOGY METHOD 05/15/2024 2:[address] [facility] NRBC Absolute 0.00 <0.10 K/mcL LAB HEMETOLOGY METHOD 05/15/2024 2:[address] [facility] Neutrophils Relative 53.7 % LAB HEMETOLOGY METHOD 05/15/2024 2:[address] [facility] Lymphocytes Relative 32.1 % LAB HEMETOLOGY METHOD 05/15/2024 2:[address] [facility] Monocytes Relative 11.7 % LAB HEMETOLOGY METHOD 05/15/2024 2:[address] [facility] Eosinophils Relative 1.5 % LAB HEMETOLOGY METHOD 05/15/2024 2:[address] [facility] Basophils Relative 0.8 % LAB HEMETOLOGY METHOD 05/15/2024 2:30 PM EST [facility] Immature Granulocytes Relative 0.2 % LAB HEMETOLOGY METHOD 05/15/2024 2:30 PM EST [facility] Neutrophils Absolute 3.48 1.50 - 7.00 K/mcL LAB HEMETOLOGY METHOD 05/15/2024 2:[address] [facility] Lymphocytes Absolute 2.08 1.00 - 5.00 K/mcL LAB HEMETOLOGY METHOD 05/15/2024 2:[address] [facility] Monocytes Absolute 0.76 0.20 - 1.00 K/mcL LAB HEMETOLOGY METHOD 05/15/2024 2:[address] [facility] Eosinophils Absolute 0.10 0.00 - 0.50 K/mcL LAB HEMETOLOGY METHOD 05/15/2024 2:[address] [facility] Basophils Absolute 0.05 0.00 - 0.20 K/mcL LAB HEMETOLOGY METHOD 05/15/2024 2:[address] [facility] Immature Granulocytes Absolute 0.01 0.00 - 0.03 K/mcL LAB HEMETOLOGY METHOD 05/15/2024 2:[address] [facility] Blood Venous blood specimen / Unknown Venipuncture / Unknown 05/15/2024 11:18 AM EST 05/15/2024 11:18 AM EST us [facility] BLOOD ORDERABLES Final Resu lt [facility] [address] [place] [address], * Comprehensive metabolic panel (05/15/2024 11:18 AM EST) Sodium 138 133 - 145 mmol/L LAB CHEMISTRY METHOD 05/15/2024 6:31 PM EST [facility] Potassium 4.3 3.5 - 5.5 mmol/L LAB CHEMISTRY METHOD 05/15/2024 6:[address] [facility] Chloride 105 96 - 110 mmol/L LAB CHEMISTRY METHOD 05/15/2024 6:[address] [facility] CO2 30 21 - 32 mmol/L LAB CHEMISTRY METHOD 05/15/2024 6:[address] [facility] Anion Gap 3 3 - 11 LAB CHEMISTRY METHOD 05/15/2024 6:[address] [facility] Glucose 89 70 - 100 mg/dL LAB CHEMISTRY METHOD 05/15/2024 6:[address] [facility] BUN 20 5 - 25 mg/dL LAB CHEMISTRY METHOD 05/15/2024 6:[address] [facility] Creatinine 0.81 0.50 - 1.10 mg/dL LAB CHEMISTRY METHOD 05/15/2024 6:[address] [facility] eGFR 81 >=60 mL/min/1. 73m2 LAB CHEMISTRY METHOD 05/15/2024 6:[address] [facility] Comment:Calculation based on the??Chronic Kidney Disease Epidemiology Collaboration (CKD-EPI) equation refit??without adjustment for race. BUN/Creatinine Ratio 24.7 LAB CHEMISTRY METHOD 05/15/2024 6:[address] [facility] Calcium 9.8 8.5 - 10.5 mg/dL LAB CHEMISTRY METHOD 05/15/2024 6:[address] [facility] AST (SGOT) 11 10 - 42 unit/L LAB CHEMISTRY METHOD 05/15/2024 6:[address] [facility] ALT (SGPT) 19 10 - 60 unit/L LAB CHEMISTRY METHOD 05/15/2024 6:[address] [facility] Alkaline Phosphatase 71 42 - 121 unit/L LAB CHEMISTRY METHOD 05/15/2024 6:[address] [facility] Total Protein 7.2 6.0 - 8.0 g/dL LAB CHEMISTRY METHOD 05/15/2024 6:31 PM EST [facility] Albumin 3.8 3.2 - 5.0 g/dL LAB CHEMISTRY METHOD 05/15/2024 6:31 PM EST [facility] Total Bilirubin 0.4 0.0 - 1.4 mg/dL LAB CHEMISTRY METHOD 05/15/2024 6:31 PM EST [facility] Blood Venous blood specimen / Unknown Venipuncture / Unknown 05/15/2024 11:18 AM EST 05/15/2024 11:18 AM EST us J[facility] BLOOD ORDERABLES Final Resu lt [facility] [address] [place] [address], [place] [phone] * [place] Abdomen Limited (05/08/2024 9:41 AM [...] Signed Date: 05/08/2024 15:46 ET Workstation ID: [id number] Transcribed By: Self Edit Transcribed Date: 05/08/2024 [...] Signed Date: 05/08/2024 15:46 ET Workstation ID: [id number] Transcribed By: Self Edit Transcribed Date: 05/08/2024 15:40 ET Wilfredo Marin MD IMG US PROCEDURES Final R esult * ECG 12 lead (05/06/2024 2:29 PM EST) Ventricular Rate ECG 58 BPM GEMUSE Atrial Rate 58 BPM GEMUSE P-R Interval 130 ms GEMUSE QRS Duration 88 ms GEMUSE Q-T Interval 410 ms GEMUSE QTc 402 ms GEMUSE P Wave [place] 79 degrees GEMUSE R [place] 72 degrees GEMUSE T [place] 65 degrees GEMUSE ECG Interpretation Sinus bradycardia with sinus arrhythmia When compared with ECG of 12-JUN-2020 14:46, Premature atrial complexes are no longer Present Confirmed by MD Larry, Austin ([id number]) on 05/07/2024 1:00:58 PM GEMUSE 05/06/2024 1:45 PM EST 05/07/2024 1:00 PM EST Meagan Alberto NP ECG ORDERABLES Edited Result - Final GEMUSE * (ABNORMAL) Lipid panel with reflex to direct LDL (05/01/2024 9:09 AM EST) Cholesterol 194 0 - 200 mg/dL LAB CHEMISTRY METHOD 05/01/2024 4:34 PM EST [facility] Triglycerides 132 0 - 150 mg/dL LAB CHEMISTRY METHOD 05/01/2024 4:34 PM EST [facility] HDL 66 >=40 mg/dL LAB CHEMISTRY METHOD 05/01/2024 4:34 PM EST [facility] LDL Calculated 102(H) 0 - 100 mg/dL LAB CHEMISTRY METHOD 05/01/2024 4:34 PM EST [facility] VLDL Cholesterol Torey 26.4 mg/dL LAB CHEMISTRY METHOD 05/01/2024 4:34 PM EST [facility] Non HDL Chol. (LDL+VLDL) 128 <145 mg/dL LAB CHEMISTRY METHOD 05/01/2024 4:34 PM EST [facility] Chol/HDL Ratio 2.9 0.0 - 4.4 LAB CHEMISTRY METHOD 05/01/2024 4:34 PM EST [facility] Blood Venous blood specimen / Unknown Venipuncture / Unknown 05/01/2024 9:09 AM EST 05/01/2024 9:09 AM EST Wilfredo Marin MD LAB BLOOD ORDERABLES Ada l Result Performing Organization Address City/[facility]/ZIP Co de Phone Number [facility] [address] [place] [address], * (ABNORMAL) Microalbumin creatinine urine ratio (05/01/2024 9:09 AM EST) Creatinine, Urine 79.0 mg/dL LAB CHEMISTRY METHOD 05/01/2024 4:[address] [facility] Microalb, Ur 105.0(H) 0.0 - 29.0 mg/L LAB CHEMISTRY METHOD 05/01/2024 4:[address] [facility] Microalb/Crea t Ratio 133(H) <30 mg/g creat LAB CHEMISTRY METHOD 05/01/2024 4:[address] [facility] Urine Urine specimen obtained by clean catch procedure / Unknown Non-blood Collection / Unknown 05/01/2024 9:09 AM EST 05/01/2024 9:09 AM EST Wilfredo Marin MD LAB URINE ORDERABLES Ada l Result Performing Organization Address City/[facility]/ZIP Co de Phone Number [facility] [address] [place] [address], [place] [phone] * (ABNORMAL) Hemoglobin A1c (05/01/2024 9:09 AM EST) Hemoglobin A1C 6.8(H) <6.5 % LAB CHEMISTRY METHOD 05/01/2024 2:[address] [facility] Mean Bld Glu Estim. 148 mg/dL LAB CHEMISTRY METHOD 05/01/2024 2:[address] [facility] Blood Venous blood specimen / Unknown Venipuncture / Unknown 05/01/2024 9:09 AM EST 05/01/2024 9:09 AM EST Wilfredo Marin MD LAB BLOOD ORDERABLES Ada l Result [facility] [address] [place] [address], * Hepatic function panel (05/01/2024 9:09 AM EST) Pathologist [facility] Total Protein 6.9 6.0 - 8.0 g/dL LAB CHEMISTRY METHOD 05/01/2024 4:[address] [facility] Albumin 3.6 3.2 - 5.0 g/dL LAB CHEMISTRY METHOD 05/01/2024 4:[address] [facility] Total Bilirubin 0.4 0.0 - 1.4 mg/dL LAB CHEMISTRY METHOD 05/01/2024 4:[address] [facility] Bilirubin, Direct <0.1 0.0 - 0.3 mg/dL LAB CHEMISTRY METHOD 05/01/2024 4:[address] [facility] Bilirubin, Indirect LAB CHEMISTRY METHOD 05/01/2024 4:[address] [facility] Comment:Unable to calculate Indirect Bilirubin. ALT (SGPT) 18 10 - 60 unit/L LAB CHEMISTRY METHOD 05/01/2024 4:[address] [facility] AST (SGOT) 12 10 - 42 unit/L LAB CHEMISTRY METHOD 05/01/2024 4:[address] [facility] Alkaline Phosphatase 71 42 - 121 unit/L LAB CHEMISTRY METHOD 05/01/2024 4:[address] [facility] Blood Venous blood specimen / Unknown Venipuncture / Unknown 05/01/2024 9:09 AM EST 05/01/2024 9:09 AM EST us Wilfredo Marin MD LAB BLOOD ORDERABLES Ada l Result [facility] [address] [place] [address], [place] [phone] * (ABNORMAL) Basic metabolic panel (05/01/2024 9:09 AM EST) Sodium 139 133 - 145 mmol/L LAB CHEMISTRY METHOD 05/01/2024 4:[address] [facility] Potassium 4.1 3.5 - 5.5 mmol/L LAB CHEMISTRY METHOD 05/01/2024 4:[address] [facility] Chloride 106 96 - 110 mmol/L LAB CHEMISTRY METHOD 05/01/2024 4:[address] [facility] CO2 30 21 - 32 mmol/L LAB CHEMISTRY METHOD 05/01/2024 4:[address] [facility] Anion Gap 3 3 - 11 LAB CHEMISTRY METHOD 05/01/2024 4:[address] [facility] Glucose 125(H) 70 - 100 mg/dL LAB CHEMISTRY METHOD 05/01/2024 4:[address] [facility] BUN 18 5 - 25 mg/dL LAB CHEMISTRY METHOD 05/01/2024 4:[address] [facility] Creatinine 0.79 0.50 - 1.10 mg/dL LAB CHEMISTRY METHOD 05/01/2024 4:[address] [facility] eGFR 83 >=60 mL/min/1. 73m2 LAB CHEMISTRY METHOD 05/01/2024 4:33 PM EST [facility] Comment:Calculation based on the??Chronic Kidney Disease Epidemiology Collaboration (CKD-EPI) equation refit??without adjustment for race. BUN/Creatinine Ratio 22.8 LAB CHEMISTRY METHOD 05/01/2024 4:33 PM EST [facility] Calcium 8.8 8.5 - 10.5 mg/dL LAB CHEMISTRY METHOD 05/01/2024 4:33 PM EST [facility] Blood Venous blood specimen / Unknown Venipuncture / Unknown 05/01/2024 9:09 AM EST 05/01/2024 9:09 AM EST Wilfredo Marin MD LAB BLOOD ORDERABLES Ada l Result [facility] [address] [place] [address], * SCREENING MAMMOGRAPHY BI 2-VIEW BREAST INC [...] category Breast cancer risk not assessed Location: [facility], [address] [place] [address], [place], [address], [phone] Procedure Note Madiha Rodriguze MD - 03/04/2024 This is a summary [...] category Breast cancer risk not assessed Location: [facility], [address] [place] [address], [address], [phone] Wilfredo Marin MD IMG XR PROCEDURES Final [...] classified as having normal bone density. [facility] Department of Internal Medicine recommends using [...] beclassified as having normal bone density. [facility] Department of Internal Medicine recommendsusing National [...] fracture risk by FRAX. Dionte Gusman NP [facility] DXA PROCEDURES Final Resul t * Colonoscopy (06/18/2019) [facility] Colonoscopy completed Anatomical Region Laterality Modality Other Historical Provider HEALTH MAINTENANCE Final Result from Last 3 Months or Most Recently Relevant to Health Maintenance Insurance [place] Care Teams Exterminator Relationship Specialty Start Date End Date Wilfredo Marin MD [address] [place] [address] PCP - General Internal Medicine 03/07/17
--- OUTSIDE RECORDS SUMMARY | 2024-06-03 11:37 | XMS_ITS | Encounter Summary ---
Author Organization [facility] Address [address] [place] [address] Care Team Providers Care Basket Braider Name Role Phone Wilfredo Marin MD Primary Care Provider [phone] Reason for Visit * Reason Onset Date Comments prior authorization 04/29/2024 Encounter Details Date Type Department Care Team (Late st Contact Info) Description 04/29/2024 [facility] [address] [place] [phone] Wilfredo Marin MD [address] [place] [id number] prior authorization Social History Tobacco Use Types [...] your loved ones. For example, child care lead teacher or elderly care for an older [...] 3:23 PM EST Prior authorization for the [facility] was approved Approved from 04/10/24 until 05/02/26 Authorization case approval number # [id number] Approval faxed to [facility] [phone] * Hue Phipps [place] - 05/02/2024 10:52 [...] Is this a Cover My Meds request: [place] of Medication dulaglutide (Trulicity) 1.5 mg/0.5 mL pen injector injection Dose of Medication 1.5 mg/0.5 mL What is the RX # from the faxed refill? no How does patient take this med? Inject 0.5 mL (1.5 mg total) under the skin every 7 (seven) days. What Pharmacy did the fax come from: [facility] fax #: no documented in this encounter Plan of Treatment Upcoming Encounters Date Type Department Care Team (Late st Contact Info) Description 06/21/2024 11:00 AM EDT [facility] [address] [place] [address] Wilfredo Marin MD [address] [place] [address] 09/06/2024 7:40 AM EDT Office Visit [facility] - [facility] [address] [facility] [address] [place] [phone] Meagan Alberto NP [address] [place] [address] documented as of this encounter Visit Diagnoses Not on filedocumented in this encounter Care Teams Basket Braider Relationship Specialty Start Date End Date Wilfredo Marin MD [address] [place] [address] PCP - General Internal Medicine 03/07/17 documented as of this encounter
--- OUTSIDE RECORDS SUMMARY | 2024-06-03 11:37 | XMS_ITS | Encounter Summary ---
Author Organization [facility] Address [address] [place] [address] Care Team Providers Care Cable Ferry Operator Name Role Phone Wilfredo Marin MD Primary Care Provider [phone] Reason for Visit * Reason Onset Date Comments Testing 05/20/[address] A Encounter Details Date Type Department Care Team (Late st Contact Info) Description 05/20/2024 Telephone [facility] - [address] [place] [phone] Meagan Alberto, DEANA [address] [place] [phone] Testing (Auth Coronary CTA) Social History Tobacco [...] encounter Progress Notes * Keira Stephens - 05/31/2024 9:18 AM EST Called PCP office and inquired on the status of this request. An urgent message was submitted to the [place] so this could get processed don. Thanks, Yenni Nino * Keira Stephens - 05/20/2024 1:20 PM EST Insurance referral request faxed to PCP marked urgent for processing. Unsure of the turnaround timesince we have not been receiving referrals back from [place]. Thanks, Yenni Nino * Neena Santana - 05/20/2024 12:38 PM EST Please get a [facility] Out of network auth/Specialist referral for a Coronary CTA (04670), Chest pain (R07.9), Coronary artery dz (I25.10, I25.84), @[facility] documented in this encounter Plan of Treatment Upcoming Encounters Date Type Department Care Team (Late st Contact Info) Description 06/21/2024 11:00 AM EDT Office Visit Internal Medicine - [facility] [address] [place] [address] Wilfredo Marin MD [address] [place] [address] 09/06/2024 7:40 AM EDT Office Visit [facility] - [address] [place] [phone] Meagan Alberto NP [address] [place] [phone] documented as of this encounter Visit Diagnoses Not on filedocumented in this encounter Care Teams Cable Ferry Operator Relationship Specialty Start Date End Date Wilfredo Marin MD [address] [place] [address] PCP - General Internal Medicine 03/07/17 documented as of this encounter
--- OUTSIDE RECORDS SUMMARY | 2024-06-03 11:37 | XMS_ITS | Data Portability ---
Author Organization [facility], [address] Address [address] [place] [address] Assessment No assessment recorded. Plan of Treatment Reminders Order Date Submit Date Provider Last Modified By Organization Details Last Modified Time Details Appointments None recorded. Lab rapid SARS CoV 2 Ag, QL IA, respiratory specimen 2022 023 fijaz3 [facility] [address], [address] [place], [address], 10:28:22 rapid flu (A+B) 2022 023 fijaz3 [facility] [address], [address] [place], [address], 10:28:22 Referral emergency medicine referral - Sinus bradycardia , right sided chest pain , congestion, EKG seem normal. history of pericarditi s. Need further evaluation and treatment. 2022 023 acardinal 3 [facility] Emergency Department, [address] [place], [address], 10:29:47 Procedures None recorded. Surgeries None recorded. Imaging electrocard iogram 2022 023 acardinal 3 [facility] [address], [address] [place], [address], 10:29:47 Medication Orders None recorded. Patient TargetsNo targets recorded. Patient Instructions Encounter Date Encounter Id Patient Instructions Last Modified By Organization Details Last Modified Time 06/12/2022 [id number] If you test positive for COVID-19, stay home for at least 5 days and isolate from others in your home. You are likely most infectious during these first 5 days. Wear a high-quality mask if you must be around others at home and in public. Do not go places where you are unable to wear a mask. For travel guidance, see [facility]? s Travel webpage. Do not travel. [...] masking (see below). For travel guidance, see [facility]? s Travel webpage. Not available 06/12/2022 [...] ve Not Available [address] [place], [address], 06/12/2022 10:16:29 06/13/19 23 06/12/2022 rapid flu (A+B) Unknown Analyte negati ve Not Available [address] [place], [address], 06/12/2022 10:16:29 06/13/19 23 06/12/2022 rapid flu (A+B) Unknown Analyte Normal = Negati ve Not Available [address] [place], [address], 06/12/2022 10:16:29 06/13/19 23 06/12/2022 rapid flu (A+B) Unknown Analyte negati ve Not Available [address] [place], [address], 06/12/2022 10:16:29 06/13/19 23 06/12/2022 rapid SARS CoV 2 Ag, QL IA, respi rator y speci men Unknown Analyte Normal =Negat madhuri Not Available [address] [place], [address], 06/12/2022 10:16:23 06/13/19 23 06/12/2022 rapid SARS CoV 2 Ag, QL IA, respi rator y speci men Unknown Analyte negati ve Not Available [address] [place], [address], 06/12/2022 10:16:23 06/13/1906/12/2022 juan medrano am No observ ation record ed. [facility] [address] [place], [address], 06/12/2022 11:17:27 Result Notes None recorded. Problems Name Problem SNOMED Code Status Onset Date Resolution Date Notes Provider Name and Address Organization Details Recorded Time Hyperlipidemia 03572851 Active Cody Toya null, PA - [facility] 09:46:21 Diabetes mellitus 59972708 Active Cody Toya null, PA - [facility] 09:46:30 Asthma 452587744 Active Cody Toya null, PA - [facility] 09:46:48 Sciatica 38526252 Active Cody Toya null, PA - [facility] 09:47:15 Problem Notes None recorded. Procedures Surgical History Date Name Laterality Status Provider Name and Address Organization Details Recorded Time 0 lung excision completed Cody Koromaah PA - [facility] 06/12/2022 09:48:30 Imaging Results Imaging Date Name Status LastModified by Organization Details LastModified Time 06/12/2022 electrocardiogram completed [facility] [address] [place], [address], 06/12/2022 11:17:27 Procedure Notes None recorded. Medical Equipment None Reported. Allergies Allergen ID Allergen Name Allergen Category Reaction Reaction Severity Criticality Documentation Date Start Date Code Code System Note Provider Name and Address Organization Details Recorded Time 041948 Flagyl medicatio n Not available Not available Not available 06/12/2022 6 RxNorm Cody Toya null, PA - [facility] 3 09:45:00 930202 Product containin g penicilli n (product) medicatio n Not available Not available Not available 06/12/2022 34677 8001 SNOMED LYNN Lang - [facility] 3 [...] Updated DateTime 3 160.02 cm 32.8 kg/m2 89308.5 9 g 98 % 98 % 8 [...] SNOMED-CT Code Diagnosis ICD10 Code Diagnosis Note [id number] [address] [place] [address] 02/07/2022 12:20:48 02/07/2022 17:05:16 [id number] [address] [place] [address] 08/04/2021 11:47:53 08/04/2021 13:34:22 [id number] Nico Posadasaz, [employer] [address] [place] [address] 06/12/2022 09:26:24 06/12/2022 10:29:46 Chest pain 61946549 R07.9 Exposure t o SARS-CoV-2 548110009 Z20.822 Health Concerns Section Related Observation LastModified by Organization Detai ls LastModified Time None Recorded Concern Status LastModified by Organization Details LastModified Time None Recorded Advance Directives Directive None Recorded Payers Encounter Date Sequence Insurance Name Policy Number Policy Day Covered Member ID Day Member ID Guarantor Name 08/04/2021 1 [facility] Alis Sanchez [id number] Alis Sanchez 02/07/2022 1 [facility] Alis Sanchez [id number] Alis Sanchez 06/12/2022 1 [facility] [id number] Alis Sanchez [id number] Alis Sanchez Notes Date Note Type [...] associated dizziness;chest discomfort Nico Mcarthur NP [address] [place], [address], [place] - [facility] 06/12/2022 11:12:32 OBGyn Episode No OBEpisode recorded.
--- OUTSIDE RECORDS SUMMARY | 2024-06-03 11:37 | XMS_ITS | Encounter Summary ---
Author Organization [employer] Address [address] [place] [address] Care Team Providers Care Chemical Laboratory Tester Name Role Phone Wilfredo Marin MD Primary Care Provider [phone] Encounter Details Date Type Department Care Team (Late Contact Info) Description 02/13/2024 Lab Requisition [facility] - Main Lab [address] [facility] [place] [phone] Natanael Woods MD [address] [facility] [address] [place] [address] Other nonspecific abnormal finding of lung field [...] AM EDT [facility] [address] [place] [address] Wilfredo Marin MD [address] [place] [address] 09/06/2024 7:40 AM EDT Office Visit [facility] - [address] [place] [phone] Meagan Alberto NP [address] [place] [phone] documented as of this encounter Visit Diagnoses Diagnosis Other nonspecific abnormal finding of lung field documented in this encounter Care Teams Chemical Laboratory Tester Relationship Specialty Start Date End Date Wilfredo Marin MD [address] [place] [address] PCP - General Internal Medicine 03/07/17 documented as of this encounter
--- OUTSIDE RECORDS SUMMARY | 2024-06-03 11:37 | XMS_ITS | Encounter Summary ---
Author Organization [employer] Address [address] [place] [address] Care Team Providers Care Credit Risk Associate Name Role Phone Wilfredo Marin MD Primary Care Provider [phone] Encounter Details Date Type Department Care Team (Late st Contact Info) Description 06/02/2024 Telephone Internal Medicine - [facility] [address] [place] [address] Wilfredo Marin MD [address] [place] [address] Social History Tobacco Use Types Packs/Day Years [...] care for your loved ones. For example, attendant child activity or elderly care for an older adult? [...] Progress Notes * Wilfredo Marin MD - 06/02/2024 1:04 PM EST Pool: Please inform the patient I received a copy of the CAT scan of the chest ordered by her gauger chief delivery. I would like to know if she followed through with her gauger chief delivery regarding her CAT scanof the chest result? documented in this encounter Plan of Treatment Upcoming Encounters Date Type Department Care Team (Late st Contact Info) Description 06/21/2024 11:00 AM EDT Office Visit Internal Medicine - [address] [address] Wilfredo Marin MD [address] [place] [address] 09/06/2024 7:40 AM EDT Office Visit [facility] - [address] [place] [address] Meagan Alberto NP [address] [place] [phone] documented as of this encounter Visit Diagnoses Not on filedocumented in this encounter Care Teams Credit Risk Associate Relationship Specialty Start Date End Date Wilfredo Marin MD [address] [place] [address] PCP - General Internal Medicine 03/07/17 documented as of this encounter
--- OUTSIDE RECORDS SUMMARY | 2024-06-03 11:37 | XMS_ITS | Encounter Summary ---
Author Organization [employer] Address [address] [place] [address] Care Team Providers Care It Sales Consultant Name Role Phone Wilfredo Marin MD Primary Care Provider [phone] Reason for Visit * Imaging (Routine) - Pending Review Specialty Diagnoses / Procedures Referred By Jordyn t Referred To Contact Radiology Diagnoses Fatty liver Procedures US Abdomen Limited US Abdomen Complete Wilfredo Marin MD [address] [place] [address] Phone: tel: fax: [address] Phone: tel: Referral ID Status Reason Start Date Expiration Date V isits Requested Visits Authorized [id number] Pending Review 04/22/2024 04/22/2025 1 1 Encounter Details Date Type Department Care Team (Latest Contact Info) Description 05/08/2024 9:00 AM EST - 05/08/2024 11:59 PM EST Hospital Encounter Ultrasound - [facility] [address] [place] [address] Fatty liver Discharge Disposition: Home or Self [...] your loved ones. For example, child care specialist or elderly care for an older [...] mouth at bedtime. 15 each 2 04/22/2024 morphine (MSIR) 15 mg tablet Take 1 [...] (40 mg total) by mouth at bedtime. metFORMIN XR (GLUCOPHAGE-XR) 500 mg 24 hr tablet Take 1 tablet (500 mg total) by mouth 1 (one) time each day. 90 tablet 03/04/2024 05/31/2024 documented as of this encounter Discharge Disposition Disposition Code Departure Means Destination Home or Self Care documented in this encounter Plan of Treatment Upcoming Encounters Date Type Department Care Team (Late st Contact Info) Description 06/21/2024 11:00 AM EDT Office Visit Internal Medicine - [address] [place] [address] Wilfredo Marin MD [address] [place] [address] 09/06/2024 7:40 AM EDT Office Visit [facility] - [address] [place] [phone] Meagan Alberto, DEANA [address] [place] [address] documented as of this encounter Procedures Procedure [...] Signed Date: 05/08/2024 15:46 ET Workstation ID: [id number] Transcribed By: Self Edit Transcribed Date: 05/08/2024 [...] Signed Date: 05/08/2024 15:46 ET Workstation ID: [id number] Transcribed By: Self Edit Transcribed Date: 05/08/2024 15:40 ET us Wilfredo Marin MD [facility] [place] PROCEDURES Final R esult documented in this encounter Visit Diagnoses Diagnosis Fatty liver Other chronic nonalcoholic liver disease documented in this encounter Care Teams It Sales Consultant Relationship Specialty Start Date End Date Wilfredo Marin MD [address] [place] [address] PCP - General Internal Medicine 03/07/17 documented as of this encounter
== END 2024-06-03 10:56 | disposition home or self-care (01) ==
PROVIDERS: PCP Internal Medicine; Visit Provider Hospitalist
DX: J84.9 Interstitial pulmonary disease, unspecified (principal); J84.116 Cryptogenic organizing pneumonia; G89.12 Acute post-thoracotomy pain; R91.8 Other nonspecific abnormal finding of lung field; J45.40 Moderate persistent asthma, uncomplicated; J67.9 Hypersensitivity pneumonitis due to unspecified organic dust
CPT/HCPCS: 99214; G2211

== ENCOUNTER → 2024-06-03 10:22 | Outpatient (BNVA) | payer MEDICARE, SELFPAY | PROVIDERS: PCP Internal Medicine; Visit Provider Hospitalist | DX: R91.8 Other nonspecific abnormal finding of lung field (principal); J84.9 Interstitial pulmonary disease, unspecified; J84.116 Cryptogenic organizing pneumonia; J67.9 Hypersensitivity pneumonitis due to unspecified organic dust; J45.40 Moderate persistent asthma, uncomplicated; G89.12 Acute post-thoracotomy pain | CPT/HCPCS: 99212 ==

== ENCOUNTER 2024-12-25 09:52 | Outpatient (AMB) | payer MEDICARE, SELFPAY ==
--- NOTE | 2024-12-25 09:55 | MHC.OFFVIS ---
Vital Signs 12/25/24 09:56 Height 5 ft 6 in Weight 180 lb 12.465 oz BMI 29.2 BP 124/82 Blood Pressure Location Lt brachial Position Sitting Pulse 68 Pulse Source Pulse Oximeter Pulse Oximetry (%) 98 Oxygen Delivery Method Room Air Intake Visit Reasons: Pulmonary Nodule Director Of Business Continuity Required: No Accompanied by: Self / Same As Patient Allergies glipizide Allergy (Severe, Verified 12/25/24 09:59) Rash/Hives metronidazole (From Flagyl) Allergy (Severe, Verified 12/25/24 09:59) Rash/Hives Penicillins Allergy (Severe, Verified 12/25/24 09:59) Rash/Hives sitagliptin (From Januvia) Allergy (Severe, Verified 12/25/24 09:59) Rash/Hives Sulfa (Sulfonamide Antibiotics) Allergy (Severe, Verified 12/25/24 09:59) Rash/Hives HPI Comments Details: The patient is a 64-year-old woman with a known history of pulmonary nodules. Patient has undergone to surgical biopsies initially the superior segment of the left lower lobe segmentectomy and subsequently a left lower lobe lobectomy after a concerning nodule. both nodules demonstrated a pathology consistent with organizing pneumonia and non-necrotizing granulomas which is typical of hypersensitivity pneumonitis. the patient did undergo blood work ruling out connective tissue conditions an inflammatory conditions. Unfortunately, her hypersensitivity panel was not done as ordered. Patient has been complaining of chest discomfort. Her left sided pleural effusion did clear and her last chest x-ray. Still has chest pains which is likely due to neuropathy at the area on her surgery. Denies any radiations, 08/17 in [facility]. She has tried eruo-lbj-gfyotsr medications without any significant improvement. Will try Lidoderm patch to the area in the meantime. The patient is also using gabapentin. Initially she was scheduled to take it 3 times a day, but, then recommended that she takes it once a day. The patient then had a PET scan and also she made an appointment to be evaluated at [facility]. Recently she had an evaluation. Today reviewed the reports of the previous pathologies demonstrating the non-necrotizing granulomas in the organizing pneumonia. The patient will be getting the actual pathology to [place] in order for them to be able to visualize the slides and make the year own conclusion on the biopsy. The did bring up the question of non tuberculosis mycobacterial infections. In the meantime the patient did not tolerate the CellCept because of adverse effects. She did tolerate the prednisone that was given to her afterwards and that did relieve some of the discomfort. The patient did have the recent biopsy on the left mass. She was given Percocet for pain. The pain is significant. Unfortunately the Percocet is make her feel nauseous and she cannot tolerate them. She will talk to her primary care doctor on Monday regarding using oxycodone by itself that she seems to tolerate well. I will provide her with several tablets of the oxycodone to tie her over the weekend or for her to be able to function after the biopsy. The patient understands that if the chest pain gets worse or if her breathing gets worse she needs to go back to the ER to be evaluated for pneumothorax or other issues. 08/12/2022 the patient is here for pulmonary has follow-up visit. The patient overall feels a lot better. She is tolerating the CellCept at a lower dose. She is to be affecting beneficial. He is also seeing pain specialist and is currently on a pain patch that is also helping control the pain. The patient was supposed to have a chest x-ray but was not able to do it because she did not have enough time. Clinically the patient doing well I did give her an x-ray sleeping she is going to have it done closer to home. In regards to the medication she is going to continue with current dose. We do need to check her CBC and also LFTs and chemistries to make sure that she is tolerating the medicine. In addition to that will plan to do another x-ray when she comes back in the fall. 12/09/2022 the patient is here for a pulmonary follow-up visit. The patient is having significant issues with dizziness. She has been following closely with the pain management Clinic. She was started on a new opiate and she is having significant dizziness. In the office she has been very dizzy having to hold her 's arm. We did the orthostatic blood pressures come up but, the patient was not orthostatic actually blood pressure is little on the high side. She does take blood pressure medications. She will talk to the pain management Clinic regarding her symptoms as this is likely an adverse effect from the medication. The patient also has been taking the CellCept. Seems to be tolerating it well. Will go ahead and request a CT scan of the chest to address her inflammatory interstitial lung disease. If the area looks the same or worse will have to increase the CellCept. will have to wait for those results. In the meantime the patient has continued to have significant weight loss. 03/09/2023 the patient is here for a hospital follow-up visit. She was recently hospitalized at [facility] back in January of this year. She did have an elevated brain nitrate peptide. She had cardiac enzymes which were negative. She did undergo a stress test that demonstrated a fix defects suggesting an old myocardial infarction. She does have follow-up with cardiology soon to further discuss the findings and further evaluation. In the meantime she also had a CTA ruling out pulmonary emboli she did have the findings of her masslike density in the left lower lobe and also smaller nodular density in the right hemithorax. Compared to previous findings the area does not look as concerning. She has been on the CellCept lower dose of 500 twice a day. Will go ahead and increase that dose to treat her for her interstitial lung disease which in this case is a combination of cryptogenic organizing pneumonia versus a hypersensitivity type of reaction. 06/07/2023 patient is here for pulmonary follow-up visit. She is finally better. She was exposed to other sick contacts, grandchild. She developed cold-like symptoms. Her COVID test was negative. She did not require any prescription medications. After few days she did feel better. Her breathing is also better. She had a cardiac workup. This point she is on cardioprotective medications. In the meantime she did have a CT scan of the chest that we personally reviewed. It appears that the nodular densities in the left lower lobe have improved. She does have some residual scarring that area. Her the pulmonary nodules are slightly better or stable. Overall seems to be responding well to the current dose mycophenolate 1 g b.i.d.. She is going to continue this dose. She does have to get blood work to make sure that she is tolerate medication well. 12/08/2023 the patient is here for a pulmonary follow-up visit. The patient overall has been doing well. She has been losing weight but is likely medication related. She is also making lifestyle changes. The patient did have a recent CT scan of the chest which I personally reviewed with her. The masslike density has significantly improved. She is tolerating the mycophenolate 1 g twice a day. Her blood work has been done elsewhere. She will need to have additional blood work to make sure she is tolerating the medication well. At this point she continues to respond to the immunomodulator therapy for her inflammatory process. She also continues with respiratory medications with good effect. Patient overall doing well. Follow-up in 6 months. Plan to repeat the CT scan a year from her last. 06/03/2024 the patient is here for a pulmonary follow-up visit. Overall she is doing okay. She still complains of pleuritic discomfort on the left base and also some shortness breath with activity. But she otherwise has been feeling better from a respiratory standpoint. She has been tolerating the mycophenolate. She has had issue with financial cost of her medications and sometimes she is not able to get all her medications which is an issue 0 by itself. But it seems like the mycophenolate has been affecting beneficial. She did have a recent CT scan of the chest we did personally review it. The masslike density that she has had in his left lower lobe for years have subsequently subsided only leaving a scar. Other nodular densities have also resolved which is reassuring. Will try to decrease the medication some to 1 g a day. But still will be helpful for her to get assistance with her medications in order to make sure that she gets all her medications as prescribed. Will continue to monitor closely with the improvement of the CT scans will hold off on any further imaging. She should have blood work with her primary care to make sure that her LFTs and after electrolytes are stable kidneys are stable while on the mycophenolate. The patient will follow-up in the fall. She has not any issues she will call for an earlier assessment. 12/25/2024 the patient is here for pulmonary follow-up visit. Overall she is doing well. She continues to tolerate the mycophenolate. The last visit we did decrease the medication to 1 g a day. Seems to be tolerating it well without any worsening respiratory complaints. Will have to wait to see her CT scan. Will go ahead and schedule that for early next year. If the patient develops any worsening symptoms we can always look at the earlier. For now she seems to be doing okay on the current respiratory therapy. She was admitted to [facility] briefly for severe constipation. She is also complaining of cough. The cough is seems to be more chronic with mucus production. Typically whitish in color the phlegm. It is bothersome is were making respiratory symptoms worse. Will be reasonable to treat her for chronic bronchitis at this time with azithromycin. She tolerates the medication oK. she does have multiple allergies to antibiotics otherwise. [facility] Medical History (Updated 06/07/23 @ 18:51 by Natanael Woods MD) Lung mass Pericardial effusion Asthma Interstitial pneumonia with autoimmune features Abnormal PET of left lung Cryptogenic organizing pneumonia Hypersensitivity pneumonitis Post-thoracotomy pain syndrome Pulmonary nodules Social History Patient Tobacco Use Status: Former Tobacco user Review of Systems Const Denies night sweats and Reports weight loss ENT Denies change in voice, Reports dizziness, Denies lip swelling, Denies mouth pain, Reports nasal congestion, Reports nasal discharge and Denies tongue swelling Card Denies chest pain and Denies dyspnea on exertion Resp Denies change in phlegm color, Reports chest congestion, Reports cough, Denies hemoptysis, Denies excessive phlegm production, Denies pain on inspiration, Denies pain with cough and Denies dyspnea on exertion GI Denies abdominal pain Musc Reports myalgias Neuro Denies Neuro-related abnormal movements and Reports dizziness Psych Denies no additional complaints Brandon/Lymph Denies easy bleeding and Denies lymphadenopathy Aller/Immun Denies lip swelling and Denies tongue swelling Physical Exam Vital Signs: Last Vital Signs Pulse 68 12/25/24 09:56 BP 124/82 12/25/24 09:56 Pulse Ox 98 12/25/24 09:56 Oxygen Delivery Method Room Air 12/25/24 09:56 BMI result Body Mass Index 29.2 Const General: alert Neck Neck: Yes normal visual inspection, Yes full ROM and Yes no lymphadenopathy Chest Chest palpation & inspection: no tenderness Resp Effort & Inspection: normal respiratory effort Auscultation: diminished lung sounds Cardio Rate: regular rate Rhythm: regular rhythm Heart sounds: S1 normal heart sound present and S2 normal heart sound present GI Palpation (GI): Soft to palpation and nontender Auscultation: normal bowel sounds Skin General skin exam: rashes and/or lesions noted Assessment & Plan Assessment & Plan (1) Interstitial pneumonia with autoimmune features: Comment: versus sarcoid Code(s): J84.9 - Interstitial pulmonary disease, unspecified Category: Medical (2) Cryptogenic organizing pneumonia: Comment: AFOP Code(s): J84.116 - Cryptogenic organizing pneumonia Category: Medical (3) Post-thoracotomy pain syndrome: Code(s): G89.12 - Acute post-thoracotomy pain Category: Medical (4) Pulmonary nodules: Code(s): R91.8 - Other nonspecific abnormal finding of lung field Category: Medical (5) Asthma: Comment: asthma COPD overlap syndrome Code(s): J45.909 - Unspecified asthma, uncomplicated Category: Medical Qualifiers: Asthma complication type: uncomplicated Asthma persistence: persistent Asthma severity: moderate Qualified Code(s): J45.40 - Moderate persistent asthma, uncomplicated (6) Hypersensitivity pneumonitis: Comment: based on biopsies with organizing pneumonia and granulomas due to HSP. R/O connective tissue disease, with labs and exam. Not consistent with sarcoid, although nodular sarcoid is in the differential. Code(s): J67.9 - Hypersensitivity pneumonitis due to unspecified organic dust Category: Medical (7) Lung mass: Comment: resolved Code(s): R91.8 - Other nonspecific abnormal finding of lung field Category: Medical Plan Contiue JAMEL as needed start Trelegy start Azithromycin MWF x 4-6 weeks Cellcept [address] daily [address] chest 05/2025 F/U 6 months Orders: Orders CT chest wo IV con 05/11/25 R91.8 - Other nonspecific abnormal finding of lung field Medications: New ctzplqyasbf-vgocrgosq-bxddtwle 200-62.5-25 mcg (Trelegy Ellipta) 1 inh inhalation DAILY 60 ea 12RF 30 days azithromycin Take 1 tablet on Monday/Monday/Monday 250 mg PO 3XW 12 tabs 1RF 28 days K21.9 - Gastro-esophageal reflux disease without esophagitis fluticasone propionate 50 mcg/actuation 2 sprays intranasal DAILY 15.8 mL 11RF 30 days J31.0 - Chronic rhinitis Coding Level of Care Code Est Pt Level 4 (41296) Complex EM visit Add On G2211 Diagnoses Interstitial pneumonia with autoimmune features J84.9 Cryptogenic organizing pneumonia J84.116 Post-thoracotomy pain syndrome G89.12 Pulmonary nodules R91.8 Moderate persistent asthma without complication J45.40 Asthma complication type: uncomplicated Asthma persistence: persistent Asthma severity: moderate Hypersensitivity pneumonitis J67.9 Lung mass R91.8 Time Spent (min) 17
[2024-12-25 09:56] VITALS: BP 124/82; PULSE 68; O2SAT 98; BMI 29.2
--- OUTSIDE RECORDS SUMMARY | 2024-12-25 11:43 | XMS_ITS | Clinical Summary ---
Author Organization [address] Building Address [address] [place] [phone] Phone Care Team Providers Care Cross Roller Name Role Phone Briana Hillman MD Primary Care Provider [phone] Allergies Active Allergy Reactions Criticality Noted Date Comments Metronidazole Rash Medium 03/12/2024 Glipizide 11/08/2018 Penicillin Nausea And Vomiting Medium 03/12/2024 Pregabalin Headache Medium 12/24/2010 Sitagliptin Rash,Other Low 11/26/2018 Sulfa (Sulfonamide Antibiotics) 05/11 Medications DILT-XR 120 mg 24 hr capsuleIndicat ions:Palpitati ons TAKE 1 CAPSULE BY MOUTH DAILY FOR 360 DAYS. 90 capsule 3 4 Active mycophenolate (CELLCEPT) 500 mg tablet Take 1 tablet (500 mg total) by mouth 2 (two) times a day. Active gabapentin (NEURONTIN) 300 mg capsule Take 1 capsule (300 mg total) by mouth if needed. Active morphine (MSIR) 15 mg tablet Take 1 tablet (15 mg total) by mouth every 8 (eight) hours if needed for severe pain. Active aspirin 81 mg EC tablet Take 1 tablet (81 mg total) by mouth 1 (one) time each day. Active metFORMIN XR (GLUCOPHAGE-XR ) 500 mg 24 hr tablet TAKE 1 TABLET BY MOUTH 1 TIME EACH DAY. 90 tablet 1 5 Active simvastatin (ZOCOR) 40 mg tablet TAKE 1 TABLET BY MOUTH EVERYDAY AT BEDTIME 90 tablet 3 5 Active dulaglutide (Trulicity) 1.5 mg/0.5 mL pen injector injectionIndic ations:Type 2 diabetes mellitus with diabetic microalbuminur ia, without long-term current use of insulin ([facility] V24, CMS/HCC V28) Inject 0.5 mL (1.5 mg total) under the skin every 7 (seven) days. 2 mL 5 5 Active cetirizine (ZyrTEC) 10 mg tablet Take 1 tablet (10 mg total) by mouth 1 (one) time each day. 30 each 5 Active senna 8.6 mg tablet TAKE 2 TABLETS (17.2 MG TOTAL) BY MOUTH 2 (TWO) TIMES A DAY. 120 tablet 1 5 Active docusate sodium (COLACE) 100 mg capsule TAKE 1 CAPSULE BY MOUTH TWICE A DAY 60 capsule 5 Active albuterol HFA (ProAir HFA) 90 mcg/actuation inhaler Inhale 2 puffs by mouth every 4 (four) hours if needed for wheezing or shortness of breath. 8.5 g 5 11/28/19 26 Active budesonide-for moteroL (SYMBICORT) 80-4.5 mcg/actuation inhaler Inhale 2 puffs by mouth 2 (two) times a day. Rinse mouth with water after use to reduce aftertaste and incidence of candidiasis. Do not swallow. 1 each 3 5 11/28/19 26 Active losartan (COZAAR) 25 mg tablet TAKE 0.5 TABLETS BY MOUTH AT BEDTIME. 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 Chest pain 05/03/2024 Assessment & Plan (05/06/2024 [...] 3D Imaging/Function; Future Asthma 04/22/2024 Diabetes mellitus (CMS/HCC V24, CMS/HCC V28) Class 1 obesity 04/22/2024 Constipation 04/22/2024 Diarrhea 04/22/2024 Diverticulosis 04/22/2024 Liver cyst 04/22/2024 Liver lesion 04/22/2024 Overview (04/22/2024): Left and right lobe noted on MRI Sciatica 04/22/2024 Coronary artery disease due to calcified coronar y lesion 04/20/2023 Overview (04/22/2024): 01/2023 nuclear stress test from [facility] showed a small, mostly fixed mild [...] as much as possible Assessment & Plan (09/06/2024 9:25 AM EDT): Orders: Lipid panel; Future Transthoracic echocardiogram (TTE) complete with PRN contrast, bubble, strain, and 3D order panel; Future perflutren lipid microsphere (DEFINITY) 1.3 mL in sodium chloride 0.9% 8.7 mL injection Assessment & Plan (05/06/2024 2:33 PM EST): See care plan for chest pain. Orders: CT Angio Heart w 3D Imaging/Function; Future Palpitations 04/20/2023 Overview (04/22/2024): Last Assessment & Plan: She has not had any significant palpitations of late. This is great news! Continue CCB at current dose. Assessment & Plan (09/06/2024 9:25 AM EDT): Historically has been well-controlled on current dose of diltiazem 120 mg. However as outlined in the hypertension section, patient has had some soft blood pressures and has not been taking her diltiazem without recurrence of her palpitations. Via shared decision making we have decided to discontinue diltiazem and she will reach out to our office should she experience increase in frequency or duration of palpitations. Encouraged to stay well-hydrated and limit her caffeine and alcohol intake. Gastroesophageal reflux disease without esophagi tis 10/08/2020 Pulmonary nodules/lesions, multiple 10/08/2020 Arthralgia of multiple sites 10/08/2020 Muscle cramps 10/08/2020 Myalgia 10/08/2020 Other insomnia 10/08/2020 Trigger index finger of left hand 10/08/2020 Sarcoidosis 09/30/2020 Liver mass 06/16/2020 Overview (04/22/2024): Found on CT scan at ED at [facility] on 06/12/2020 S/P lobectomy of lung [...] contributor to BP elevation. Assessment & Plan (09/06/2024 9:25 AM EDT): Well-controlled during today's exam with a reading of 100/60. The patient does inform me that often times she will not take her diltiazem in the setting of hypotension. Subsequently, via shared decision making we have agreed to discontinue diltiazem altogether as she has not taken it in over a week and her blood pressure is on the softer side today and she denies any recurrence of her palpitations. Assessment & Plan (06/21/2024 11:48 AM EDT): Follow low-sodium diet. Continue losartan, diltiazem. She informs me that she holds her diltiazem when her systolic blood pressure is on the low 100s. Assessment & Plan (05/06/2024 2:33 PM EST): [...] metabolic panel; Future Diabetes mellitus with cataract ([facility] V24, S[facility] V28) 11/08/2018 Assessment & Plan (04/22/2024 11:15 AM EST): Diabetic diet discussed. Will check A1c. Continue metformin, dulaglutide. Orders: Hemoglobin A1c; Future Microalbumin creatinine urine ratio; Future DM type 2 with diabetic lissa pheral neuropathy ([facility] V24, [facility] V28) 12/30/2013 CKD (chronic kidney disease) stage 2, GFR 60-89 ml/min 12/30/2013 Urolithiasis 06/13/2013 Overview (04/22/2024): Sono / Vertigo 12/21/2011 Hyperlipidemia 06/27/2006 Overview (04/22/2024): Last Assessment & Plan: LDL somewhat above target with presumed CAD based on non-invasive testing. Continue statin at current dose given concurrent CCB use. Dietary modification and exercise will help as well. If her LDL is elevated on next check, can change statin to Crestor. Assessment & Plan (09/06/2024 9:25 AM EDT): He will continue on her current dose of simvastatin and be mindful of her dietary fat intake. Her last LDL 6 months ago was 102. I have given her a lab slip to update fasting lipid panel to further evaluate for recurrent cholesterol control. Goal LDL less than 70. Assessment & Plan (06/21/2024 11:48 AM EDT): She will follow low-cholesterol diet. Continue simvastatin. DM (diabetes mellitus), type 2 with renal complications ([facility] V24, [facility] V28) 05/27/2005 Assessment & Plan (06/21/2024 11:48 AM EDT): Diabetic diet discussed. She will continue her regimen of dulaglutide, metformin. Will monitor urine microalbumin levels. She is on an ARB for microalbuminuria. Orders: dulaglutide (Trulicity) 1.5 mg/0.5 mL pen injector injection; Inject 0.5 mL (1.5 mg total) under the skin every 7 (seven) days. Hemoglobin A1c; Future Microalbumin creatinine urine ratio; Future Chronic back pain 05/27/2005 Overview (04/22/2024): IMO update Resolved Problems Problem Noted Date Diagnosed Date Resolved Date Epigastric pain 04/22/2024 11/27/2024 Pleural effusion 03/29/2022 11/27/2024 Pericardial effusion 03/19/2021 025 Hair loss 10/08/2020 11/27/2024 Rotator cuff arthropathy of both shoulders 10/08/2020 11/27/2024 Medial meniscus tear 05/21/2017 025 Overview (04/22/2024): NEOS (05/17/17): arthroscopy discussed. Phlebitis and thrombophlebitis of other sites 01/10/2011/27/2024 Overview (04/22/2024): 1987; groin; s/p childbirth IMO update Encounters Date Type Department Care Team Description 12/12/2024 10:00 AM EDT Ancillary Procedure [facility] - [facility] [address] [place] [address] Coronary artery disease due to calcified coronary lesion 11/27/2024 10:15 AM EDT Office Visit Internal Medicine - [place] [address] [place] [address] Cayla Bonner, DEANA Sciatica of left side (Primary Dx); Myalgia; DM type 2 with diabetic peripheral neuropathy ([facility] V24, [facility] V28); Diabetes mellitus with cataract ([facility] V24, [facility] V28); Chronic low back pain, unspecified back pain laterality, unspecified whether sciatica present; Chest pain, unspecified type; Arthralgia of multiple sites; Pulmonary nodules/lesions, multiple; Mild intermittent asthma, unspecified whether complicated; Hypertension, unspecified type; Gastroesophageal reflux disease without esophagitis; Diverticulosis; Type 2 diabetes mellitus with diabetic microalbuminuria, without long-term current use of insulin ([facility] V24, [facility] V28); CKD (chronic kidney disease) stage 2, GFR 60-89 ml/min; S/P lobectomy of lung 11/05/2024 10:00 AM EDT Office Visit Gastroenterology - [place] [address] [place] [phone] Isaih Ferrari MD Drug-induced constipation (Primary Dx); Diverticulosis; Stercoral colitis from Last 3 Months Immunizations Name Administration [...] Site/Laterality Comments OTHER SURGICAL HISTORY 06/2007 PROCEDURE: SD ECHO TRANSTHORAC R-T 2D W/WO M-MODE REC COMP; COMMENT: neg SECTION PROCEDURE: SD DELIVERY ONLY; COMMENT: x 3 TONSILLECTOMY ADENOIDECTOMY, BILATERAL MYRINGOTOMY AND TUBES PROCEDURE: SD TONSILLECTOMY & ADENOIDECTOMY <AGE 10; COMMENT: as achild COLONOSCOPY 07/21/19 10 PROCEDURE: HISTORICAL COLONOSCOPY; COMMENT: normal; repeat in ten years OTHER SURGICAL HISTORY 03/09/20 16 PROCEDURE: SD RMVL LUNG XCP TOT PNEUMONECTOMY SLEEVE LOBECTOMY ESOPHAGOGASTRODUODENOSCOPY 07/20/19 18 PROCEDURE: SD ESOPHAGOGASTRODUODENOSCOPY TRANSORAL DIAGNOSTIC; COMMENT: reactive antral gastropathy; biopsies negative for Helicobacter pylori. ESOPHAGOGASTRODUODENOSCOPY PROCEDURE: SD EGD TRANSORAL BIOPSY SINGLE/MULTIPLE; COMMENT: Performed June [...] 11/08/2018 DX:Cataract Diabetes mellitus with catar act ([facility] V24, [facility] V28) 11/08/2018 DX:Diabetes mellitus with c ataract ([facility]) Diverticulosis DX:Diverticulosi s Heartburn DX:Heartburn Abdominal pain [...] your loved ones. For example, child care group leader or elderly care for an older adult? [...] What is your living situation? 1 05/13/2023 Interpersonal Safety Answer Date Record ed Physical Abuse 08/21/2024 Verbal Abuse 08/21/2024 Comments No Sex and Gender Information Value Date Recorded Sex Assigned at Female 05/09/2024 3:47 AM EST Legal Sex Female 10:22 AM EST Gender Identity Female 05/09/2024 3:47 AM EST Sexual Orientation Straight 05/09/2024 4: 00 AM EST Obstetrics History Last Filed Vital Signs Vital Sign Reading Time Taken Comments Blood Pressure 118/80 12/12/2024 10:43 AM EDT Pulse 62 11/27/2024 10:19 AM EDT auto cuff Temperature 36.6 C (97.8 F) 11/27/2024 10:19 AM EDT Respiratory Rate 16 08/22/2024 7:24 AM EDT Oxygen Saturation 96% 09/06/2024 7:38 AM EDT Inhaled Oxygen Concentration - - Weight 83 kg (183 lb) 12/12/2024 10:43 AM EDT Height 162.6 cm (5' 4 ) 12/12/2024 10:43 AM EDT Body Mass Index 31.41 12/12/2024 10:43 AM EDT Plan of Treatment Upcoming Encounters Date Type Department Care Team (Late st Contact Info) Description 01/15/2025 12:00 PM EDT Appointment [facility] [address] [place] [phone] Isiah Ferrari MD [address] [place] [phone] 01/16/2025 2:00 PM EDT Office Visit Internal Medicine - [address] [phone] Briana Hillman MD [address] [place] [address] 01/27/2025 9:15 AM EDT Office Visit Internal Medicine - [address] [phone] Cayla Bonner NP [address] [place] [phone] 03/26/2025 8:40 AM EST Office Visit [facility] - [facility] [address] [facility] [address] [place] [address] Meagan Alberto NP [address] [place] [address] [address] [place] [address] Health Maintenance Due Date Last Done Comments Diabetes: Annual Foot Exam 1968 Diabetes: Annual Retina Eye Exam 1968 Zoster Vaccines (1 of 2) 07/06/2013 05/11/2013 Pneumococcal Vaccine: 50+ Years (3 of 3 - PCV) 04/26/2022 04/26/2021, 12/04/2013 Depression Screening 04/10/2024 COVID-19 Vaccine (5 - season) 2024 01/25/2022, 04/17/2021, 07/19/2020, Additional history exists Influenza Vaccine (#1) 2024 , 02/03/2023, 02/03/2023, Additional history exists Medicare Annual Wellness Visit 03/12/2025 03/12/2024 Social Influencers of Health Screening 03/12/2025 03/12/2024 Diabetes: Blood Sugar Control Test (HGBA1C) 05/30/2025 11/27/2024, 07/10/2024, 05/01/2024, Additional history exists Diabetes: Annual Urine Albumin-Creatinine Ratio (uACR) 07/10/2025 07/10/2024, 05/01/2024 Diabetes: Annual GFR (Glomerular Filtration Rate) 08/22/2025 08/22/2024, 08/21/2024, 05/15/2024, Additional history exists Falls Risk Assessment 08/22/2025 08/22/2024 Hypertension/CHF/CAD Annual BMP Blood Test 08/22/2025 08/22/2024, 08/21/2024, 05/15/2024, Additional history exists Breast Cancer Screening 02/08/2026 02/09/20, 02/09/2024, 01/31/2023, Additional history exists Colorectal Cancer Screening: Colonoscopy 06/17/2029 06/18/2019 DTaP,Tdap,and Td Vaccines (3 - Td or Tdap) 06/18/2029 06/19/2019, 05/20/2009 Cholesterol Screening (Lipid Panel) 09/16/2029 09/16/2024, 05/01/2024, 11/09/2023, Additional history exists Osteoporosis Screening (Bone Density Screening) 10/27/2032 10/27/2022 Hepatitis C Screening Completed 03/15/2023 RSV Immunization Adult Patients Completed 02/16/2024 HIB Vaccines Aged Out No longer eligi ble based on patient's age to complete this topic HPV Vaccines Aged Out No longer eligi ble based on patient's age to complete this topic Hepatitis A Vaccines Aged Out No long er eligible based on patient's age to complete this topic Hepatitis B Vaccines Aged Out No long [...] age to complete this topic Meningococcal B Vaccine Aged Out No l onger eligible based on patient's age to complete this topic RSV Immunization Patients Under 20 months Aged Out No longer eligible based on patient's age to complete this topic Varicella Vaccines Aged Out No longer eligible based on patient's age to complete this topic Procedures Procedure Name Priority Date/Time Associated Diagnosis Comments TRANSTHORACIC ECHOCARDIOGRAM (TTE) COMPLETE Routine 12/12/2024 10:39 AM EDT Coronary artery disease due to calcified coronary lesion HEMOGLOBIN A1C Routine 11/27/2024 11:08 AM EDT DM type 2 with diabetic peripheral neuropathy ([facility] V24, [facility] V28) LIPID PANEL WITH REFLEX TO DIRECT LDL Routine 09/16/2024 10:55 AM EDT Coronary atherosclerosis of [place] coronary artery BASIC METABOLIC PANEL Routine 08/22/2024 6:46 AM EDT MICROALBUMIN CREATININE URINE RATIO Routine 07/10/2024 11:42 AM EDT Type 2 diabetes mellitus with diabetic microalbuminuria, without long-term current use of insulin ([facility] V24, [facility] V28) SCREENING MAMMOGRAPHY BI 2-VIEW BREAST INC CAD Routine 02/09/2024 10:34 AM EDT Encounter for screening mammogram for malignant neoplasm of breast HM HEPATITIS C SCREENING Routine 03/15/2023 DXA BONE DENSITY STUDY 1+ SITS AXIAL SKEL Routine 10/27/2022 2:33 PM EDT Encounter for screening for osteoporosis COLONOSCOPY Routine 06/18/2019 from Last 3 Months or Most Recently Relevant to Health Maintenance Results * (ABNORMAL) TRANSTHORACIC ECHOCARDIOGRAM (TTE) COMPLETE (12/12/2024 10:39 AM EDT) Left Atrium Minor [place] 5.1 cm CV PACS Left Atrium Major [place] 5.0 cm CV PACS LA Area Sys (A2C) 17 cm2 CV PACS LA Area Sys (A4C) 19 cm2 CV PACS LA Volume (BP) 52 mL CV PACS RA Area 12.4 cm2 CV PACS RA 2D Volume 27 mL CV PACS Aortic Sinus Valsalva 3.0 cm CV PACS Ascending Aorta 3.0 cm CV PACS IVC Proximal 1.9 cm CV PACS IVC Proximal 0.5 cm CV PACS IVSD 0.9 0.6 - 0.9 cm CV PACS LVIDD 5.3(A) 3.8 - 5.2 cm CV PACS LVIDS 3.0 2.2 - 3.5 cm CV PACS LVOT Diameter 2.1 cm CV PACS LVOT Mean Jose M 0.6 m/s CV PACS LVOT Mean Grad 2 mmHg CV PACS LVOT Peak VTI 21.0 cm CV PACS LVOT Peak Jose M 0.9 m/s CV PACS LVOT Peak Gradient 3 mmHg CV PACS LVPWD 0.8 0.6 - 0.9 cm CV PACS MV E' Tissue Velocity Lateral 7 cm/s CV PACS MV E' Tissue Velocity Septal 6 cm/s CV PACS LVOT Area 3.5 cm2 CV PACS LVOT Stroke Volume 73 mL CV PACS E Wave Deceleration Time 148 119 - 242 ms CV PACS MV Peak A Jose M 0.37 m/s CV PACS MV Peak E Jose M 0.61 m/s CV PACS PV Acceleration Time 173 ms CV PACS PV Acceleration Time 173 ms CV PACS RV Diastolic Basal Dimension 2.8 2.5 - 4.1 cm CV PACS RV S' 13 cm/s CV PACS TAPSE 23 mm CV PACS TR Peak Velocity 1.91 m/s CV PACS TR Peak Gradient 15 mmHg CV PACS E/E' Ratio Septal 10 CV PACS E/E' Ratio Averaged 9 CV PACS Relative Wall Thickness ratio 0.30 CV PACS FS 43 % CV PACS LV Mass 2D 162 g CV PACS LVOT flow 208 mL/s CV PACS E/A Ratio 1.6 CV PACS E/E' Ratio Lateral 9 CV PACS BSA 1.94 m2 CV PACS LA Volume Index (BP) 28 mL/m2 CV PACS LVIDD Index 2.82 cm/m2 CV PACS LVIDS Index 1.60 cm/m2 CV PACS LV Mass Index 2D 86 44 - 88 g/m2 CV PACS LVOT Stroke Index 39 mL/m2 CV PACS RA 2D Volume Index 14(A) 15 - 27 mL/m2 CV PACS Ascending Aorta Index 1.60 cm/m2 CV PACS Right Ventricular Peak Systolic Pressure 18 mmHg CV PACS Est. RA Pressure 3 mmHg CV PACS Anatomical Region Laterality Modality Ultrasound Narrative 12/18/2024 9:53 AM EDT Left ventricle cavity size is normal. Left ventricular systolic function is in the normal range with an ejection fraction of 60-65%. No regional LV wall motion abnormalities noted. Left ventricle wall thickness is normal. Right ventricle cavity is normal. Right ventricular systolic function is normal. The atria are normal in size. No hemodynamically significant valve disease. See remainder of the report for additional findings. Left Ventricle Left ventricle cavity size is normal. Wall thickness is normal. Systolic function is normal with an ejection fraction of 60-65%. There are no regional LV wall motion abnormalities. There is no diastolic dysfunction. Right Ventricle Right ventricle cavity appears normal. Systolic function is normal. Left Atrium Left atrium cavity size is normal. Right Atrium Right atrium cavity is normal. IVC/SVC Inferior vena cava structure is normal. RA pressures is estimated to be 3 mmHg (IVC diameter <21 mm and decreases >50% during inspiration). Mitral Valve The leaflets are mildly thickened. There is trace regurgitation. There is no significant stenosis noted. Tricuspid Valve Tricuspid valve structure is normal. There is mild regurgitation with a central jet. There is no significant tricuspid valve stenosis. Aortic Valve The aortic valve is trileaflet. The leaflets are not thickened and exhibit normal excursion. There is no regurgitation or stenosis. Pulmonic Valve The pulmonic valve was not well visualized. No significant pulmonic valve regurgitation. No significant pulmonary valve stenosis noted. Ascending Aorta The aorta appears normal in size. Pericardium Pericardium appears normal. There is no pericardial effusion. Study Details Overall the study quality was adequate. The underlying ECG rhythm was sinus bradycardia. Meagan Alberto ACQUISITION LEAD CV ECHO PROCEDURES Fin al Result * (ABNORMAL) Hemoglobin A1c (11/27/2024 11:08 AM EDT) Hemoglobin A1C 7.5(H) <6.5 % LAB CHEMISTRY METHOD 11/27/2024 10:04 PM EDT [facility] Mean Bld Glu Estim. 169 mg/dL LAB CHEMISTRY METHOD 11/27/2024 10:04 PM EDT [facility] Blood Venous blood specimen / Unknown Venipuncture / Unknown 11/27/2024 11:08 AM EDT 11/27/2024 11:08 AM EDT Cayla Garcia ACQUISITION LEAD LAB BLOOD ORDERABLES Final R esult [facility] [address] [place] [address], [place] [phone] * Lipid panel with reflex to direct LDL (09/16/2024 10:55 AM EDT) [facility] Signature Cholesterol 181 0 - 200 mg/dL LAB CHEMISTRY METHOD 09/16/2024 9:02 PM EDT [facility] Triglycerides 84 0 - 150 mg/dL LAB CHEMISTRY METHOD 09/16/2024 9:02 PM EDT [facility] HDL 84 >=40 mg/dL LAB CHEMISTRY METHOD 09/16/2024 9:02 PM EDT [facility] LDL Calculated 80 0 - 100 mg/dL LAB CHEMISTRY METHOD 09/16/2024 9:02 PM T [facility] VLDL Cholesterol T[place]y 16.8 mg/dL LAB CHEMISTRY METHOD 09/16/2024 9:02 PM EDT [facility] Non HDL Chol. (LDL+VLDL) 97 <145 mg/dL LAB CHEMISTRY METHOD 09/16/2024 9:02 PM [facility] Chol/HDL Ratio 2.2 0.0 - 4.4 LAB CHEMISTRY METHOD 09/16/2024 9:02 PM [facility] Blood Venous blood specimen / Unknown Venipuncture / Unknown 09/16/2024 10:55 AM EDT 09/16/2024 10:55 AM EDT us Meagan Alberto ACQUISITION LEAD LAB BLOOD ORDERABLES F inal Result [facility] [address] [place] [address], * (ABNORMAL) Basic metabolic panel (08/22/2024 6:46 AM EDT) Sodium 145 133 - 145 mmol/L LAB CHEMISTRY METHOD 08/22/2024 8:04 AM [facility] Potassium 3.6 3.5 - 5.5 mmol/L LAB CHEMISTRY METHOD 08/22/2024 8:04 AM [facility] Chloride 111(H) 96 - 110 mmol/L LAB CHEMISTRY METHOD 08/22/2024 8:04 AM [facility] CO2 28 21 - 32 mmol/L LAB CHEMISTRY METHOD 08/22/2024 8:04 AM [facility] Anion Gap 6 3 - 11 LAB CHEMISTRY METHOD 08/22/2024 8:04 AM [facility] Glucose 91 70 - 100 mg/dL LAB CHEMISTRY METHOD 08/22/2024 8:04 AM [facility] BUN 10 5 - 25 mg/dL LAB CHEMISTRY METHOD 08/22/2024 8:04 AM [facility] Creatinine 0.56 0.50 - 1.10 mg/dL LAB CHEMISTRY METHOD 08/22/2024 8:04 AM EDT [facility] eGFR 101 >=60 mL/min/1. 73m2 LAB CHEMISTRY METHOD 08/22/2024 8:04 AM EDT [facility] Comment:Calculation based on the Chronic Kidney Disease Epidemiology Collaboration (CKD-EPI) equation refit without adjustment for race. BUN/Creatinine Ratio 17.9 LAB CHEMISTRY METHOD 08/22/2024 8:04 AM EDT [facility] Calcium 8.5 8.5 - 10.5 mg/dL LAB CHEMISTRY METHOD 08/22/2024 8:04 AM EDT [facility] Blood Venous blood specimen / Unknown Venipuncture / Unknown 08/22/2024 6:46 AM EDT 08/22/2024 7:05 AM EDT us Austin Arrington MD LAB BLOOD ORDERABLES Ada ribeiro Result [facility] [address] [place] [address], [place] [phone] * (ABNORMAL) Microalbumin creatinine urine ratio (07/10/2024 11:42 AM EDT) Creatinine, Urine 65.0 mg/dL LAB CHEMISTRY METHOD 07/10/2024 10:22 PM EDT [facility] Microalb, Ur 62.0(H) 0.0 - 29.0 mg/L LAB CHEMISTRY METHOD 07/10/2024 10:22 PM EDT [facility] Microalb/Crea t Ratio 95(H) <30 mg/g creat LAB CHEMISTRY METHOD 07/10/2024 10:22 PM EDT [facility] Urine Urine specimen obtained by clean catch procedure / Unknown Non-blood Collection / Unknown 07/10/2024 11:42 AM EDT 07/10/2024 11:42 AM EDT Wilfredo Marin MD LAB URINE ORDERABLES Ada l Result [facility] ([facility] [address] [place] [address], * SCREENING MAMMOGRAPHY BI 2-VIEW BREAST INC [...] are composed of fatty and fibroglandular tissue. No suspicious mass, architectural distortion or suspicious calcifications are identified. IMPRESSION: : No mammographic evidence of malignancy. BIRADS 1-Negative; N. Breast density: The breasts have scattered areas of fibroglandular density. 5 year breast cancer risk assessment N/A Lifetime breast cancer risk assessment N/A Breast cancer risk category Breast cancer risk not assessed Location: [facility], [address] [place] [address], [phone], [phone] Procedure Note Madiha Rodriguez MD - 03/04/2024 [...] Breast cancer risk not assessed Location: [facility], [address], [phone] Wilfredo Marin MD IMG XR PROCEDURES Final R esult * Hepatitis C Screening (03/15/2023) Hepatitis C Screening negative Historical Provider HEALTH MAINTENANCE Final Result * DXA BONE DENSITY STUDY 1+ SITS AXIAL SKEL (10/27/2022 2:33 PM EDT) Anatomical Region Laterality Modality Bone Densitometr y 03/14/2022 12:0 0 PM EST Narrative 10/27/2022 5:42 PM EDT BONE DENSITY Lumbar Spine T-score is -0.5 [...] Based on the World Health Organization criteria, Ju Walton should be classified as having normal bone density. [facility] Department of Internal Medicine recommends using National [...] Based on the World Health Organization criteria, Ju Walton should beclassified as having normal bone density. [facility] Department of Internal Medicine recommendsusing National Osteoporosis [...] fracture risk by FRAX. Dionte Gusman NP IMG DXA PROCEDURES Final Resul t * Colonoscopy (06/18/2019) [facility] Colonoscopy completed Anatomical Region Laterality Modality Other us Historical Provider HEALTH MAINTENANCE Final Result from Last 3 Months or Most Recently Relevant to Health Maintenance Insurance [employer] Advance Directives * Full Code - Confirmed (Latest Code Status on File) Date Activated Date Inactivated Comments 08/22/2024 12:04 AM 08/22/2024 2:36 PM This code s tatus was ascertained in the following way: Code status discussion: discussion with patient To update the patient's code status, place a code status order. Do not modify or discontinue any currently active code status orders. * Full Code - Default Date Activated Date Inactivated Comments 08/21/2024 8:29 PM 08/22/2024 12:04 AM This is ord er is used when code status has not been discussed with the patient, or code status is otherwise unknown/unconfirmed To update the patient's code status, place a code status order. Do not modify or discontinue any currently active code status orders. Care Teams Cross Roller Relationship Specialty Start Date End Date Briana Hillman MD [address] [place] [phone] PCP - General Internal Medicine 11/01/24
--- OUTSIDE RECORDS SUMMARY | 2024-12-25 11:43 | XMS_ITS | Clinical Summary ---
Author Organization [employer] [facility] Address [address] [place] [address] Care Team Providers Care Yarn Twister Name Role Phone Wilfredo Marin MD Primary Care Provider [phone] Allergies Active Allergy Reactions Criticality Noted Date [...] 58 09/30/2020 11:53 AM EDT Temperature 36.3 C (97.4 F) 09/30/2020 11:53 AM EDT Respiratory Rate 16 03/02/2019 5:47 PM EST [...] Scan) 2023 COVID-19 Vaccine (2 - season) 2024 06/28/2020 Influenza Vaccine (#1) 2024 0, 02/20/2019, 01/19/2018, Additional history exists RSV Adult > 60+ Yrs or (1 - 1-dose 75+ series) 2033 Hepatitis B Vaccines Aged Out No long er eligible based on patient's age to complete this topic RSV Ped < 20 months Aged Out No longe r eligible based on patient's age to complete this topic Care Teams Yarn Twister Relationship Specialty Start Date End Date Wilfredo Marin MD [address] [facility] [place] [address] PCP - General Internal Medicine 03/02/19
--- OUTSIDE RECORDS SUMMARY | 2024-12-25 11:45 | XMS_ITS | Encounter Summary ---
Author Organization [facility] Address [address] [place] [address] [place] [address] Phone Care Team Providers Care Automotive Glazier Name Role Phone Brenton Salinas MD Unavailable Wilfredo Marin MD Primary Care Provider [phone] Jaden Christensen Unavailable [phone] Natanael Woods MD Unavailable Wilfredo Marin MD Primary Care Provider [phone] Encounter Details Date Type Department Care Team (Late st Contact Info) Description 03/02/2021 Procedure Pass [facility] for Outpatient Care - [facility] [address] [facility], 6th [place] [address] Social History Tobacco Use Types Packs/Day Years Used Date Smoking Tobacco: Former Cigarettes 0.5 35 1 975 - 2010 Smokeless Tobacco: Never Comments Unknown Sex and Gender Information Value Date Recorded Sex Assigned at Female 07/06/2020 9:14 AM EDT Legal Sex Female 8:58 AM EDT Gender Identity Female 07/06/2020 9:14 AM EDT Sexual Orientation Straight 07/06/2020 9: 14 AM EDT documented as of this encounter Plan of Treatment Not on file documented as of this encounter Visit Diagnoses Not on filedocumented in this encounter Care Teams Automotive Glazier Relationship Specialty Start Date End Date Wilfredo Marin MD [address] [place] [address] PCP - General Internal Medicine 07/13/20 07/10/23 Wilfredo Marin MD [address] [place] [address] PCP - General Internal Medicine 07/11/23 Brenton Salinas MD [address] [place] [id number] [email or web address] Hematology and Oncology 07/13/20 Jaden Christensen PA [address] [place] [address] [place] [address] Gastroenterology 07/13/20 Natanael Woods MD [address] [place] [address] [place] [address] Pulmonary Disease 07/13/20 documented as of this encounter Additional Source Comments The information contained in this document represents components of the legal health record. It is not the complete legal health record.[facility]
--- OUTSIDE RECORDS SUMMARY | 2024-12-25 11:45 | XMS_ITS | Encounter Summary ---
Author Organization [facility] Address [address] [place] [address] Care Team Providers Care Park Recreation Manager Name Role Phone Briana Hillman MD Primary Care Provider [phone] Reason for Visit * Reason Onset Date Comments faxed order 05/31/2024 Encounter Details Date Type Department Care Team (Late st Contact Info) Description 05/31/2024 Telephone [facility] - [facility] [address] [place] [phone] Wilfredo Marin MD [address] [place] [phone] Social History Tobacco Use Types Packs/Day Years [...] for your loved ones. For example, child specialist or elderly care for an older [...] as of this encounter Progress Notes * Meagan Alberto NP - 06/07/2024 7:51 AM EST Thanks so much. * Keira Stephens - 06/07/2024 7:31 AM EST Good morning Meagan, This is for an insurance request. I apologize this was sent to you. I have sent the request to the referrals department at [place] in hopes this is taken care of. Thanks, Yenni Nino * Meagan Alberto NP - 06/06/2024 5:12 PM EST Please elaborate on what the issue is and what you need from me? This sounds like and insurance issue. Is this being dealt with? * Jose Martinez MA - 06/05/2024 11:01 AM EST Please see below, as it is urgent. * Wilfredo Marin MD - 06/04/2024 7:20 PM EST Please forward the message to cardiology department. * Mary Martinez MA - 06/04/2024 1:17 PM EST Referral pending. * Keira Stephens - 06/04/2024 9:08 AM EST Good morning, What we ([facility]) are looking for is for an ambulatory referral to be created so that we are able to request the insurance authorization from the department. The patient will be scheduled for the Coronary CTA at [facility] and they require the insurance authorization in order to schedule the test. I have submitted this request a few times and have not been successful. Thank you very much, Yenni Nino * Jane Zavala MA - 05/31/2024 10:29 [...] over an order, [facility] gave the fax [phone]. They state they need this back as [...] Description 01/15/2025 12:00 PM EDT Appointment [facility] Endoscopy [address] [place] [address] Isiah Ferrari MD [address] [place] [phone] 01/16/2025 2:00 PM EDT Office Visit Internal Medicine - [facility] [address] [place] [address] Briana Hillman MD [address] [place], [place] 01/27/2025 9:15 AM EDT Office Visit Internal Medicine - [address] [phone] Cayla Bonner, DEANA [address] [place] [address] 03/26/2025 8:40 AM EST Office Visit [facility] - [facility] [address] [facility] [address] [place] [phone] Meagan Alberto NP [address] [place] [address] Dr Sanchez [address] [place] [phone] documented as of this encounter Visit Diagnoses Diagnosis Chest pain, unspecified type- Primary documented in this encounter Care Teams Park Recreation Manager Relationship Specialty Start Date End Date Briana Hillman MD [address] [place] [address] PCP - General Internal Medicine 11/01/24 documented as of this encounter
--- OUTSIDE RECORDS SUMMARY | 2024-12-25 11:45 | XMS_ITS | Encounter Summary ---
Author Organization [facility] Address [address] [place] [address] [place] [address] Phone Care Team Providers Care City Auditor Name Role Phone Brenton Salinas MD Unavailable Wilfredo Marin MD Primary Care Provider [phone] Jaden Christensen Unavailable [phone] Natanael Woods MD Unavailable Wilfredo Marin MD Primary Care Provider [phone] Encounter Details Date Type Department Care Team (Late st Contact Info) Description 09/07/2021 Procedure Pass [facility] for Outpatient Care - [facility] 32 [facility], 6th [place] [address] Social History Tobacco Use Types Packs/Day Years [...] on filedocumented in this encounter Care Teams City Auditor Relationship Specialty Start Date End Date Wilfredo Marin MD [address] [place] [address] PCP - General Internal Medicine 07/13/20 07/10/23 Wilfredo Marin MD [address] [place] [address] PCP - General Internal Medicine 07/11/23 Brenton Salinas MD [address] [place] [address] [email or web address] Hematology and Oncology 07/13/20 Jaden Christensen PA [address] [place] [address] [place] [address] Gastroenterology 07/13/20 Natanael Woods MD [address] [place] [address] [place] [address] Pulmonary Disease 07/13/20 documented as of this encounter Additional Source Comments The information contained in this document represents components of the legal health record. It is not the complete legal health record.[facility]
--- OUTSIDE RECORDS SUMMARY | 2024-12-25 11:45 | XMS_ITS | Encounter Summary ---
Author Organization [facility] Address [address] [place] [address] [place] [phone] Phone Care Team Providers Care Assistant Elementary Teacher Name Role Phone Brenton Salinas MD Unavailable [phone] Wilfredo Marin MD Primary Care Provider [phone] Jaden Christensen Unavailable [phone] Natanael Woods MD Unavailable Wilfredo Marin MD Primary Care Provider [phone] Encounter Details Date Type Department Care Team (Late st Contact Info) Description 07/28/2020 Procedure Pass [facility], [address] [facility], 2nd Floor, [address] [place] [address] Social History Tobacco Use Types Packs/Day Years [...] on filedocumented in this encounter Care Teams Assistant Elementary Teacher Relationship Specialty Start Date End Date Wilfredo Marin MD [address] [place] [address] PCP - General Internal Medicine 07/13/20 07/10/23 Wilfredo Marin MD [address] [place] [address] PCP - General Internal Medicine 07/11/23 Brenton Salinas MD [address] [place] [address] [email or web address] Hematology and Oncology 07/13/20 Jaden Christensen PA [address] [place] [address] [place] [address] Gastroenterology 07/13/20 Natanael Woods MD [address] [place] [address] [place] [address] Pulmonary Disease 07/13/20 documented as of this encounter Additional Source Comments The information contained in this document represents components of the legal health record. It is not the complete legal health record.[facility]
--- OUTSIDE RECORDS SUMMARY | 2024-12-25 11:45 | XMS_ITS | Encounter Summary ---
Author Organization [employer] Address [address] [place] [address] Care Team Providers Care Hydrometer Finisher Name Role Phone Briana Hillman MD Primary Care Provider [phone] Encounter Details Date Type Department Care Team (Late Contact Info) Description 02/13/2024 Lab Requisition [facility] - Main Lab [address] [facility] [place] [address] Natanael Woods MD [address] [facility] [address] [place] [address] Other nonspecific abnormal finding of lung field [...] Department Care Team (Late Contact Info) Description 01/15/2025 12:00 PM EDT Appointment [facility] Endoscopy [address] [place] [phone] Isiah Ferrari MD [address] [place] [phone] 01/16/2025 2:00 PM EDT Office Visit Internal Medicine - [address] [phone] Briana Hillman MD [address] [place] [address] 01/27/2025 9:15 AM EDT Office Visit Internal Medicine - [address] [phone] Cayla Bonner NP [address] [place] [address] 03/26/2025 8:40 AM EST Office Visit [facility] - [facility] [address] [phone] Meagan Alberto NP [address] [place] [address] [place] [phone] documented as of this encounter Visit Diagnoses Diagnosis Other nonspecific abnormal finding of lung field documented in this encounter Care Teams Hydrometer Finisher Relationship Specialty Start Date End Date Briana Hillman MD [address] [place] [address] PCP - General Internal Medicine 11/01/24 documented as of this encounter
--- OUTSIDE RECORDS SUMMARY | 2024-12-25 11:45 | XMS_ITS | Encounter Summary ---
Author Organization [facility] Address [address] [place] [address] [place] [address] Phone Care Team Providers Care Cardiology Manager Name Role Phone Brenton Salinas MD Unavailable [phone] Wilfredo Marin MD Primary Care Provider [phone] Jaden Christensen Unavailable [phone] Natanael Woods MD Unavailable Wilfredo Marin MD Primary Care Provider [phone] Encounter Details Date Type Department Care Team (Late st Contact Info) Description 09/29/2020 Procedure Pass [facility], [place] [address] [facility], 2nd Floor, [address] [place] [address] Social History Tobacco Use Types Packs/Day Years [...] on filedocumented in this encounter Care Teams Cardiology Manager Relationship Specialty Start Date End Date Wilfredo Marin MD [address] [place] [address] PCP - General Internal Medicine 07/13/20 07/10/23 Wilfredo Marin MD [address] [place] [address] PCP - General Internal Medicine 07/11/23 Brenton Salinas MD [address] [place] [address] [email or web address] Hematology and Oncology 07/13/20 Jaden Christensen PA [address] [place] [address] [place] [address] Gastroenterology 07/13/20 Natanael Woods MD [address] [place] [address] [place] [address] Pulmonary Disease 07/13/20 documented as of this encounter Additional Source Comments The information contained in this document represents components of the legal health record. It is not the complete legal health record.[facility]
== END 2024-12-25 10:27 | disposition home or self-care (01) ==
PROVIDERS: PCP Psychiatry & Neurology Psychiatry; Visit Provider Hospitalist
DX: J84.9 Interstitial pulmonary disease, unspecified (principal); J84.116 Cryptogenic organizing pneumonia; G89.12 Acute post-thoracotomy pain; R91.8 Other nonspecific abnormal finding of lung field; J45.40 Moderate persistent asthma, uncomplicated; J67.9 Hypersensitivity pneumonitis due to unspecified organic dust
CPT/HCPCS: 99214; G2211

== ENCOUNTER → 2024-12-25 09:52 | Outpatient (BNVA) | payer MEDICARE, SELFPAY | PROVIDERS: PCP Internal Medicine; Visit Provider Hospitalist | DX: R91.8 Other nonspecific abnormal finding of lung field (principal); J84.9 Interstitial pulmonary disease, unspecified; J84.116 Cryptogenic organizing pneumonia; G89.12 Acute post-thoracotomy pain; J45.40 Moderate persistent asthma, uncomplicated; J67.9 Hypersensitivity pneumonitis due to unspecified organic dust | CPT/HCPCS: 99212 ==